=== PATIENT | male | born 1935 | race Caucasian/White ===

== ENCOUNTER 2023-12-25 17:57 | Emergency (ER) | payer MEDICARE, SELFPAY ==
--- NOTE | ~2023-12-25 | CT_ITS ---
CT brain wo con Ordering provider: Va Hallman PA-C History: 88 years Male with . head injury . Comparison: None. Technique: CT of the head without contrast. Radiation reduction technique utilized. DLP is 605.33 mGy-cm. FINDINGS: BRAIN PARENCHYMA AND CSF SPACES: Mild leukoaraiosis and diffuse cortical atrophy. Mild atheromatous d isease. Old lacunar infarct in the right basal ganglia. No midline shift, mass effect or hemorrhage. The brain parenchyma and CSF spaces are otherwise normal. VISUALIZED PARANASAL SINUSES: Well aerated. MASTOIDS: Well aerated. BONES: The bones appear intact. SOFT TISSUES: Visualized nasopharynx is normal. Superficial soft tissues are normal. IMPRESSION: No acute intracranial findings. Reviewed, dictated and finalized at location A.
--- NOTE | ~2023-12-25 | CT_ITS ---
CT cervical spine wo con Ordering provider: Va Hallman PA-C History: . head injury . Comparison: None. Technique: CT of the cervical spine was performed without contrast. Sagittal and coronal reformatted images were also obtained and reviewed. Automated exposure control and iterative reconstruction ming hnique were employed. The dose-length product was 365.87 mGy-cm. FINDINGS: VERTEBRAE: No subluxation or acute fracture. The occipital condyles are intact. Degenerative changes of the spine. DISC SPACES: Narrowing of the disc C4-C5 and C5-C6.Bilateral facet joint disease. Multilevel uncovert ebral joint osteoarthritic changes. Mild to moderate spinal canal stenosis with Narrowing of the fora yohan at the level of C5-C6. PARASPINOUS SOFT TISSUES: Normal. IMPRESSION: No acute osseous abnormality cervical spine. Reviewed, dictated and finalized at location A.
[2023-12-25 18:05] VITALS: BP 170/53; PULSE 76; RESP 16; TEMP 37.1; O2SAT 98
--- NOTE | 2023-12-25 19:53 | ED.HEATRA ---
HPI - Head Injury General Chief complaint: Head Injury Stated complaint: fall, head injury on aspirin Time Seen by Provider: 12/25/23 18:43 History of Present Illness HPI Narrative: 88-year-old male presents with his at bedside after a head injury a mechanical fall. 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 States he hit his head but did not lose consciousness. He did does not report any injury or pain. He does present with an abrasion to the back his head. Tdap unknown. No other complaints. He is not anticoagulated. Related Data Allergies Allergy/AdvReac Type Severity Reaction Status Date / Time No Known Allergies Allergy Verified 12/25/23 20:19 Review of Systems Review of Systems: All systems reviewed & are unremarkable except as noted in HPI and below Exam Narrative: GENERAL: Well-appearing, well-nourished, and in no acute distress. HEAD: Normocephalic. Small superficial abrasion to the posterior scalp without surrounding hematoma, ecchymosis, step-offs, crepitus or deformity EYES: PERRLA and EOMI. ENT: Nares clear, no rhinorrhea or epistaxis. Mucous membranes moist. NECK: minimal midline spinous tenderness without step-offs, crepitus or deformities BACK: no thoracolumbar spinous tenderness, crepitus, step-offs or deformities CHEST: Clear to auscultation. No respiratory distress. HEART: Regular rate and rhythm. No murmur heard. Normal peripheral pulses. EXTREMITIES: Normal range of motion. No edema. no tenderness to upper lower extremities SKIN: Warm, dry, no rash. NEURO: No focal deficits. Alert and oriented x3. cranial nerves 2-12 intact. Strength 5/5 in BUE and BLE. Course Vital Signs Vital signs: Vital Signs Temperature 98.8 F 12/25/23 18:05 Pulse Rate 76 12/25/23 18:05 Respiratory Rate 16 12/25/23 18:05 Blood Pressure 170/53 H 12/25/23 18:05 Pulse Oximetry 98 12/25/23 18:05 Temperature 98.8 F 12/25/23 18:05 Pulse Rate 67 12/25/23 20:19 Respiratory Rate 14 12/25/23 20:19 Blood Pressure 152/63 H 12/25/23 20:19 Pulse Oximetry 98 12/25/23 20:19 MDM - Head Injury MDM Narrative Medical decision making narrative: 88-year-old male presents to emergency department for head injury and mechanical fall that occurred prior to arrival. Triage vital significant for blood pressure 170/53, otherwise unremarkable. Patient is well-appearing and nontoxic on exam. He has a small superficial abrasion to posterior scalp, otherwise no evidence of trauma. CT head and neck are unremarkable. Tdap updated an abrasion cleaned with normal saline. The patient will be discharged home with PCP follow-up. Strict ED return precautions discussed. He and his are agreeable to plan verbalized understanding. Discharged in stable condition. Discharge Plan Discharge Clinical Impression: Closed head injury, Abrasion Patient Disposition: Home, Self-Care Condition: Stable Instructions: Antibiotic Form, Head Injury (ED), Abrasion (ED) Additional Instructions: you were evaluated in the emergency department for a head injury. The CT of your head and neck Show no broken bones or bleeds. We updated her tetanus shot today. Please follow-up closely with primary care provider. Return to the emergency department if he developed abnormal behavior, vision changes, focal numbness or weakness, fever or other concerning symptoms. Follow-up/Referrals: Elena,Matthias Dunn M.D. [Primary Care Provider] -
[2023-12-25 20:19] VITALS: BP 152/63; PULSE 67; RESP 14; O2SAT 98
[2023-12-25] MEDS: TETANUS,DIPHTHERIA,AC PERTUSSIS ADULT (0.5 ML) BOOSTRIX IM (20:20)
== END 2023-12-25 20:25 | disposition home or self-care (01) ==
PROVIDERS: Emergency Provider Physician Assistant; PCP Family Medicine
DX: S00.01XA Abrasion of scalp, initial encounter (principal); Z23 Encounter for immunization; W18.39XA Other fall on same level, initial encounter
CPT/HCPCS: 70450; 72125; 90471; 90715; 99284

== ENCOUNTER 2024-01-15 09:33 | Observation (INO) | payer MEDICARE, SELFPAY ==
[2024-01-15] VITALS (18 sets, daily range): BP systolic 108–147; BP diastolic 45–66; PULSE 52–63; RESP 13–21; TEMP 36.4–36.9; O2SAT 92–99; BMI 21.3
--- NOTE | ~2024-01-15 | XR_ITS ---
Clinical Indication: Chest pressure PA and lateral views of the chest: Comparison: None Findings: The lungs are clear, without evidence of focal consolidation or pleural effusion. Cardiome diastinal silhouette is within normal limits, with loop recorder. Bones and soft tissues are unremark able. Impression: Clear lungs. Reviewed, dictated and finalized at location . Impression: Clear lungs.
--- NOTE | ~2024-01-15 | CT_ITS ---
CT head without contrast Indication: Syncope COMPARISON: 12/25/2023 Technique: Serial scans were obtained through the brain without the administration of contrast. Dose reduction technique was used on this scan by utilizing automated exposure control and iterative recon struction technique. The dose-length product (DLP) was 605.33 mGy-cm. Findings: There is no evidence of intracranial hemorrhage, mass lesion, or acute infarct. The ventri cles and subarachnoid spaces are dilated, consistent with moderate atrophy. Low attenuation regions are seen within the periventricular white matter bilaterally, likely representing changes from chroni c microvascular ischemic disease. There is no evidence of edema, mass effect or midline shift. The visualized paranasal sinuses and mastoid air cells are clear. Impression: No intracranial hemorrhage, mass, or acute infarct. Atrophy and chronic white matter changes, as above. Reviewed, dictated and finalized at location . Impression: No intracranial hemorrhage, mass, or acute infarct. Atrophy and chronic white matter changes, as above.
--- NOTE | ~2024-01-15 | US_ITS ---
CAROTID ULTRASOUND Ordering provider: Madeleine Watson NP History: . Syncope . Comparison: None. Technique: Grayscale and color Doppler ultrasound examination of the carotid and vertebral artery sys tems bilaterally. Maximum peak systolic velocity (PSV) / end diastolic velocity (EDV) measurements we re obtained. FINDINGS: RIGHT: --COMMON CAROTID ARTERY: PSV is 129.3 cm/s. EDV is 15.1 cm/s. --EXTERNAL CAROTID ARTERY: PSV is 182.9 cm/s. --INTERNAL CAROTID ARTERY PROXIMAL: PSV is 70.7 cm/s. EDV is 8.1 cm/s. --INTERNAL CAROTID ARTERY MID: PSV is 96.5 cm/s. EDV is 9.3 cm/s. --INTERNAL CAROTID ARTERY DISTAL: PSV is 96.5 cm/s. EDV is 9.3 cm/s. --VERTEBRAL ARTERY: PSV is 65.8 cm/s. Antegrade flow with normal waveform. --SYSTOLIC ICA/CCA: 0.7 --ATHEROMATOUS DISEASE: Mild. LEFT: --COMMON CAROTID ARTERY: PSV is 1.0, 5.2 cm/s. EDV is 12.1 cm/s. --EXTERNAL CAROTID ARTERY: PSV is 185.5 cm/s. --INTERNAL CAROTID ARTERY PROXIMAL: PSV is 99.7 cm/s. EDV is 10.2 cm/s. --INTERNAL CAROTID ARTERY MID: PSV is 125.3 cm/s. EDV is 12.1 cm/s. --INTERNAL CAROTID ARTERY DISTAL: PSV is 60.6 cm/s. EDV is 11.6 cm/s. --VERTEBRAL ARTERY: PSV is 36.3 cm/s. Antegrade flow with normal waveform. --SYSTOLIC ICA/CCA: 1.2 --ATHEROMATOUS DISEASE: Mild. --OTHER: None. IMPRESSION: 1. 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 2. Antegrade flow demonstrated within both vertebral arteries. Reviewed, dictated and finalized at location A.
--- NOTE | 2024-01-15 09:37 | ECG_ITS ---
Test Date: 2024-01-15 09:43:23 Measurements Intervals [place] Rate: 55 P: 6 [place]: 248 QRS: 61 QRSD: 145 T: 207 QT: 476 QTc: 456 Interpretive Statements SINUS BRADYCARDIA WITH FIRST DEGREE AV BLOCK RIGHT BUNDLE BRANCH BLOCK [120+ ms QRS DURATION, UPRIGHT V1, 40+ ms S IN I/aVL/V4/V5/V6] MODERATE T-WAVE ABNORMALITY, CONSIDER LATERAL ISCHEMIA [-0.1+ mV T-WAVE IN I/aVL/V5/V6] MODERATE T-WAVE ABNORMALITY, CONSIDER INFERIOR ISCHEMIA [-0.1+ mV T-WAVE IN II/aVF] No previous ECG available for comparison Electronically Signed On 01-15-2024 17:13:01 CDT by Anders Ceballos M.D.
[2024-01-15 10:04] LABS: Basophils Percent Auto 0.7 % (0.2-1.2); Eosinophils Absolute Auto 0.1 K/mm3 (0-0.3); Eosinophils Percent Auto 2.3 % (0-4.4); Hematocrit 36.2 % (42.0-52.0); Hemoglobin 12.5 g/dL (14.0-18.0); Immature Granulocyte Absolute 0.01 K/mm3 (0.00-0.031); Immature Granulocyte Percent A 0.2 % (0-0.5); Lymphocytes Absolute Auto 2.27 K/mm3 (0.9-3.2); Lymphocytes Percent Auto 37.3 % (18.3-44.2); Mean Corpuscular HGB Conc 34.5 g/dl (32-36); Mean Corpuscular Hemoglobin 34.8 pg (26-34); Mean Corpuscular Volume 100.8 fl (80-100); Mean Platelet Volume 9.7 fl (7.4-10.4); Monocytes Absolute Auto 0.5 K/mm3 (0.1-0.6); Monocytes Percent Auto 8.6 % (2.6-8.5); Neutrophils Absolute Auto 3.1 K/mm3 (1.3-6.7); Neutrophils Percent Auto 50.9 % (45.5-73.1); Platelet Count Result 207 k/mm3 (150-375); Red Blood Count 3.59 M/mm3 (4.6-6.20); Red Cell Distribution Width 12.1 % (11.5-14.5); White Blood Count 6.1 K/mm3 (4.5-10.0)
[2024-01-15 10:16] LABS: Alanine Aminotransferase 28 U/L (6-50); Albumin Level 3.7 g/dL (3.5-5.1); Alkaline Phosphatase 65 U/L (38-126); Anion Gap 12 mmol/L (4-12); Aspartate Amino Transferase 24 U/L (17-59); Bilirubin,Total 0.7 mg/dL (0.2-1.3); Blood Urea Nitrogen 19 mg/dL (9-20); Calcium 8.7 mg/dL (8.4-10.2); Carbon Dioxide 24 mmol/L (22-30); Chloride 100 mmol/L (98-107); Estimated CRCL calculation 34 ml/min; Estimated Glomerular Filt Rate 57; Glucose 307 mg/dL (65-110); Potassium 4.2 mmol/L (3.4-5.0); Sodium 136 mmol/L (137-145)
--- NOTE | 2024-01-15 10:34 | ED.DIZZY ---
HPI - Dizziness General Chief Complaint: Dizziness Stated Complaint: weakness, possible syncope History of Present Illness HPI Narrative: 88-year-old male presenting to the emergency department for evaluation for 2 syncopal episodes today. Patient had just had a long hot shower and was walking from the bathroom to the bedroom when he lowered himself to the ground and had loss of consciousness. witnessed this and went to his system and states that the patient was conscious when he was lying on the ground and she tried to stand him up to get into the bed and patient had a 2nd syncopal episode. Patient laid back on the bed and once he laid back within 10-15 seconds he had regained consciousness. Patient does not recall the episode. At time of evaluation patient denies any lightheaded dizziness chest pain or shortness of breath. states patient does have history of memory issues and does not drink enough water normally and does take long hot showers. Related Data Home Medications Medication Instructions Recorded Confirmed aspirin 81 mg capsule 81 mg PO DAILY 01/15/24 01/15/24 atorvastatin 80 mg tablet 80 mg PO HS 01/15/24 01/15/24 carvedilol 6.25 mg tablet 6.25 mg PO Q12H 01/15/24 01/15/24 clopidogrel 75 mg tablet 75 mg PO DAILY 01/15/24 01/15/24 cyanocobalamin (vitamin B-12) 500 See Rx Instructions .Route .COMPLEX 01/15/24 01/15/24 mcg tablet finasteride 5 mg tablet 5 mg PO DAILY 01/15/24 01/15/24 furosemide 20 mg tablet 20 mg PO DAILY 01/15/24 01/15/24 metformin 500 mg tablet 500 mg PO Q12H 01/15/24 01/15/24 uoexleqk-bo-knmql 300 mcg-K 60 See Rx Instructions .Route .COMPLEX 01/15/24 01/15/24 mcg-lycop 600 mcg-lutein 300 mcg tablet (Centrum Silver Men) olmesartan 40 mg tablet 40 mg PO DAILY 01/15/24 01/15/24 omega 3-knp-pab-fish oil 1,200 mg 1,200 cap PO TID 01/15/24 01/15/24 (144 mg-216 mg) capsule (Fish Oil) saw palmetto 450 mg capsule 450 mg PO Q12H 01/15/24 01/15/24 tamsulosin 0.4 mg capsule 0.4 mg PO Q12H 01/15/24 01/15/24 Allergies Allergy/AdvReac Type Severity Reaction Status Date / Time No Known Allergies Allergy Verified 01/15/24 09:43 Review of Systems Review of Systems: All systems reviewed & are unremarkable except as noted in HPI and below PMFSH Social History Social History Smoking status: Never smoker Alcohol intake: never Substance use: never Do You Feel Safe in your Home?: Yes Lack of Transportation: No Lack of Food: Never True Current Housing: I Have Housing Concerned About Future Housing: No Difficulty Paying Gas/Electric Bills: No Difficulty Paying for Meds: No Currently Unemployed: No Education: Master's Degree or Higher Difficulty w/ Childcare or Family Care: No Spiritual care concerns: No Exam Narrative: APPEARANCE: Well appearing, no pain, no distress, well-nourished. HEAD: normocephalic, atraumatic. EYES: PERRLA/EOMI, conjunctivae clear. NOSE: Normal no drainage EARS:TMS clear with good light reflex. THROAT: Pharynx clear, no exudate. NECK: Supple. No adenopathy, no masses. RESPIRATORY: Airway patent, respirations nonlabored. Clear to auscultation bilaterally, no rales, rhonchi, wheezing. CARDIOVASCULAR: Regular rate and rhythm without murmurs rubs or gallops. ABDOMINAL: Soft, nontender, nondistended, normal bowel sounds MUSCULOSKELETAL: Moves all extremities. Strength/ROM intact, No edema, No calf tenderness. NEURO: Alert. Cranial nerves II through XII intact. Grossly intact SKIN: Warm, dry. Normal Color Course Course Emergency Course: Patient was admitted for further syncope workup. Vital Signs Vital signs: Vital Signs Temperature 98.4 F 01/15/24 09:34 Pulse Rate 56 L 01/15/24 09:34 Respiratory Rate 15 01/15/24 09:34 Blood Pressure 117/50 L 01/15/24 09:34 Pulse Oximetry 92 01/15/24 09:34 Oxygen Delivery Room Air 01/15/24 09:34 Temperature 97.6 F
[2024-01-15 10:55] LABS: Magnesium 1.7 mg/dL (1.6-2.3)
[2024-01-15 11:22] LABS: Influenza A QL RT-PCR Negative (Negative); Influenza B QL RT-PCR Negative (Negative); RSV RNA, RT-PCR Negative (Negative); SARS-CoV-2 RNA PCR Negative (Negative)
[2024-01-15 12:49] LABS: Add Urine Microscopic? YES; Appearance Urine Clear (Clear); Bacteria Urine None Seen /hpf; Bilirubin Urine Negative (Negative); Blood Urine Negative (Negative); Color Urine Yellow (Yellow); Glucose Urine UA 3+ mg/dL (Negative); Ketones Urine Trace mg/dL (Negative); Leukocyte Esterase Ur Negative LEU/UL (Negative); Need Manual Microscopic Need Manual; Nitrate Urine Negative (Negative); Non Pathogenic Casts 0-2; Protein Urine Trace mg/dL (Negative); Specific Grav Ur 1.035 (1.001-1.035); Squamous Epithelial Cell Urine None Seen /hpf (Few); Urobilinogen Urine 0.2 mg/dL (<2.0); WBC Urine 0-5 /hpf (0-3)
--- NOTE | 2024-01-15 13:50 | ADMGEN ---
This patient, Gary Myers, was admitted to [address] [place] [address] Room 306-02. Patient/family oriented to hospital policies and general routines including ID bracelet, bed and alarms, visiting hours, pain management, procedures, bathroom and other care routines, personal items, smoking policy, room service/diet, and visiting hours. Information on how to activate the Rapid Response Team has been discussed. Patient/Family are encouraged to report perceived risks to care and to ask questions if they do not understand what they are told or what they should do.
[2024-01-15 15:10] LABS: Free T4 Free Thyroxine Reflex 1.07 ng/dL (0.78-2.19)
[2024-01-15 16:26] LABS: Total Triiodothyronine (T3) 1.33 NG/ML (0.97-1.69)
--- NOTE | 2024-01-15 17:00 | PM.IMHP ---
H&P: HPI History of Present Illness Date/Time: 01/15/24 13:00 Chief Complaint: Syncope Narrative: Patient presented to the ER following a syncope episode at home. Patient with bedside, reports that he took a shower and assisted him drying up. Patient's briefly left the room but briefly thereafter heard a loud noise coming from patient's room. returned to check on patient and found him on the floor, patient denying hitting head or LOC prior to the fall episode, but doesn't know how he fell, states he just found himself on the floor. Patient reports some brief discomfort behind his left chest as he left the shower that quickly resolved. Patient also hasn't taken any of his medications, that include carvedilol for his CAD. Of note, patient had a fall episode about 3 weeks ago at the grocery store that he attributes to getting up quickly after picking up something from the floor. He hit the back of his head during that presentation, and was seen at this ER where he had a negative work-up, only a superficial abrasion at posterior scalp that was treated and patient discharge. Patient unaware if any previous history of bradycardia and follows up with a donor support technician in [place]. ER Work-up >>Labs; WBC 6.1, H/H 12.5/36.2, Plat 207, Na 136, TSH 6.67, FT4 10.7, T3 1.33, UA with 3+ glucose, Trace ketones, 11-20 RBC's, Covid PCR negative, FLU A/B PCR negative, RSV PCP negative. Imaging; CT head- No intracranial hemorrhage, mass or acute infarct. Patient denying any dizziness, headache, chest pain, SOB, numbness or tingling, abdominal distress. [facility] Social History Social History Smoking status: Never smoker Alcohol intake: never Substance use: never Do You Feel Safe in your Home?: Yes Lack of Transportation: No Lack of Food: Never True Current Housing: I Have Housing Concerned About Future Housing: No Difficulty Paying Gas/Electric Bills: No Difficulty Paying for Meds: No Currently Unemployed: No Education: Master's Degree or Higher Difficulty w/ Childcare or Family Care: No Spiritual care concerns: No Meds Home Medications and Allergies Home Medications Medication Instructions Recorded Confirmed Type aspirin 81 mg capsule 81 mg PO DAILY 01/15/24 01/15/24 History atorvastatin 80 mg tablet 80 mg PO HS 01/15/24 01/15/24 History carvedilol 6.25 mg tablet 6.25 mg PO Q12H 01/15/24 01/15/24 History clopidogrel 75 mg tablet 75 mg PO DAILY 01/15/24 01/15/24 History cyanocobalamin (vitamin B-12) 500 See Rx Instructions .Route .COMPLEX 01/15/24 01/15/24 History mcg tablet finasteride 5 mg tablet 5 mg PO DAILY 01/15/24 01/15/24 History furosemide 20 mg tablet 20 mg PO DAILY 01/15/24 01/15/24 History metformin 500 mg tablet 500 mg PO Q12H 01/15/24 01/15/24 History mmyqbqrx-de-urdma 300 mcg-K 60 See Rx Instructions .Route .COMPLEX 01/15/24 01/15/24 History mcg-lycop 600 mcg-lutein 300 mcg tablet (Centrum Silver Men) olmesartan 40 mg tablet 40 mg PO DAILY 01/15/24 01/15/24 History omega 0-tgu-kbm-fish oil 1,200 mg 1,200 cap PO TID 01/15/24 01/15/24 History (144 mg-216 mg) capsule (Fish Oil) saw palmetto 450 mg capsule 450 mg PO Q12H 01/15/24 01/15/24 History tamsulosin 0.4 mg capsule 0.4 mg PO Q12H 01/15/24 01/15/24 History Allergies Allergy/AdvReac Type Severity Reaction Status Date / Time No Known Allergies Allergy Verified 01/15/24 09:43 Vital Signs Vital Signs - 24 hr 01/15/24 09:34 01/15/24 10:44 01/15/24 10:44 Temperature 98.4 F Pulse Rate 56 L 59 L 60 Respiratory Rate 15 Blood Pressure 117/50 L 122/45 L 126/47 L Pulse Oximetry 92 Oxygen Delivery Room Air 01/15/24 10:44 01/15/24 11:47 01/15/24 09:38 Temperature Pulse Rate 63 59 L 55 L Respiratory Rate 20 Blood Pressure 116/48 L 117/50 L Pulse Oximetry 92 Oxygen Delivery 01/15/24 09:45 01/15/24 09:46 08/07/24 10:38 Tem
[2024-01-15] MEDS: OMEGA 3 POLYUNSAT FATTY ACIDS 1 GM CAP PO (18:10)
[2024-01-15] MEDS: metFORMIN HCL 500 MG TABLET PO (18:10)
[2024-01-15 18:25] LABS: Hemoglobin A1C 9.6 % (<5.7)
[2024-01-15] MEDS: CYANOCOBALAMIN 500 MCG TABLET PO (19:22)
[2024-01-15 20:18] LABS: Glucose Point of Care 281 mg/dl (65-105)
[2024-01-15] MEDS: INSULIN ASPART (*BKC) 100 UNITS/ML SUB-Q (20:44)
[2024-01-15] MEDS: ATORVASTATIN 40 MG TABLET 80 MG PO (20:44)
[2024-01-15] MEDS: TAMSULOSIN HCL 0.4 MG CAPSULE PO (20:44)
[2024-01-16] VITALS (13 sets, daily range): BP systolic 133–158; BP diastolic 55–84; PULSE 56–73; RESP 18–20; TEMP 36.1–37; O2SAT 94–97
--- NOTE | 2024-01-16 | ECHO_ITS ---
Patient Info Name: Gary Myers Age: 88 years : 1935 Gender: Male Ht: 69 in Wt: 160 lbs BSA: 1.88 m2 HR: 63 bpm BP: 108 / 66 mmHg Heart Rhythm: Sinus Rhythm Technical Quality: Good Exam Date: 01/16/2024 11:35 AM Exam Location: Echo Lab Patient Status: Inpatient Admit Date: 01/15/2024 Staff Ordering Physician: Madeleine Watson NP Typewriter Aligner: Lazara Abdi RDCS Attending Provider: Robert Morfin MD Referring Physician: Walter SHARP; Exam Type: CA echo doppler color flow Study Info Indications - syncope Complete two-dimensional, color flow and Doppler transthoracic echocardiogram is performed. Summary 1. Complete two-dimensional, color flow and Doppler transthoracic echocardiogram is performed. 2. Moderate concentric left ventricular hypertrophy with well-preserved systolic function and grade 1 diastolic noncompliance. 3. Sclerotic aortic valve which is nonstenotic. 4. Mild mitral annular calcium. Left Ventricle Left ventricular chamber dimension is normal. Left ventricular systolic function is normal, estimated at 65-70%. There is moderate concentric increased left ventricular wall thickness. The left ventricular diastolic function is grade I diastolic dysfunction. Right Ventricle Right ventricular chamber dimension is normal. Left Atria Left atrial chamber dimension is normal. Right Atria Right atrial chamber dimension is normal. Aortic Valve The aortic valve is trileaflet. There is mild aortic valve sclerosis. Pulmonic Valve The pulmonic valve is not well visualized. Mitral Valve The mitral valve has normal leaflets. The mitral valve annulus is mildly calcified. Tricuspid Valve The tricuspid valve leaflets are normal. Pericardium/Pleural The pericardium appears normal. Aorta The aortic root size at the sinus of Valsalva is normal. Left Ventricular Outflow Tract Name Value Normal LVOT 2D LVOT Diameter 2.1 cm LVOT Doppler LVOT Peak Gradient 3 mmHg LVOT Mean Gradient 1 mmHg LVOT VTI 21 cm LVOT VTI/AV VTI Ratio 0.9 LVOT Stroke Volume 77 ml LVOT CO 4.3 l/min LVOT CI 2.3 l/min/m2 Pulmonic Valve Name Value Normal PV Doppler PV Peak Gradient 2 mmHg Mitral Valve Name Value Normal MV Doppler MV Decel Evans 162 cm/s2 MV PHT 86 ms MV Area (PHT) 2.6 cm2 4.0-5.0 MV Diastolic Function
--- NOTE | 2024-01-16 06:00 | ECG_ITS ---
Test Date: 2024-01-16 07:37:15 Measurements Intervals [place] Rate: 56 P: 52 [place]: 233 QRS: 70 QRSD: 138 T: -81 QT: 431 QTc: 419 Interpretive Statements SINUS BRADYCARDIA WITH FIRST DEGREE AV BLOCK RIGHT BUNDLE BRANCH BLOCK [120+ ms QRS DURATION, UPRIGHT V1, 40+ ms S IN I/aVL/V4/V5/V6] MODERATE T-WAVE ABNORMALITY, CONSIDER ANTEROLATERAL ISCHEMIA [-0.1+ mV T WAVE IN V3-V6] ABNORMAL ECG Compared to ECG 01/15/2024 09:43:23 No significant changes Electronically Signed On 01-17-2024 13:24:27 CDT by Riley Iraheta M.D.
[2024-01-16 07:49] LABS: Glucose Point of Care 214 mg/dl (65-105)
[2024-01-16] MEDS: OLMESARTAN MEDOXOMIL 20 MG TABLET 40 MG PO (09:42)
[2024-01-16] MEDS: ASPIRIN 81 MG CHEWABLE TABLET PO (09:42)
[2024-01-16] MEDS: FINASTERIDE 5 MG TABLET PO (09:42)
[2024-01-16] MEDS: INSULIN ASPART (*BKC) 100 UNITS/ML SUB-Q ×2 (09:42→12:15)
[2024-01-16] MEDS: OMEGA 3 POLYUNSAT FATTY ACIDS 1 GM CAP PO ×3 (09:42→17:06)
[2024-01-16] MEDS: TAMSULOSIN HCL 0.4 MG CAPSULE PO ×2 (09:42→21:21)
[2024-01-16] MEDS: FUROSEMIDE 20 MG TABLET PO (09:42)
[2024-01-16] MEDS: CLOPIDOGREL BISULFATE 75 MG TABLET PO (09:42)
[2024-01-16] MEDS: metFORMIN HCL 500 MG TABLET PO ×2 (09:42→17:06)
[2024-01-16 11:42] LABS: Glucose Point of Care 338 mg/dl (65-105)
--- NOTE | 2024-01-16 13:00 | PM.IMPN ---
Progress Note: A&P Assessment and Plan (1) Syncope and collapse: Code(s): R55 - Syncope and collapse Status: Acute Assessment and Plan: - Possibly related to bradycardia - Maintains sinus osvaldo on telemetry. - Troponin pending. - No significant electrolytes abnormalities or signs of infection. - CT brain negative for acute. - CXR negative. - UA negative for infection. - ECHO pendign - Carotid duplex no significant occlusion - Hold Coreg for now. - Continue tele monitoring. (2) Bradycardia: Code(s): R00.1 - Bradycardia, unspecified Status: Acute Assessment and Plan: - Possibly meds related with patient taking Coreg. - Maintains sinus osvaldo with 1st degree AV block on telemetry. - Hold coreg for now. - Consider reducing coreg dose prior to discharge. (3) Diabetes type 2, uncontrolled: Status: Acute Assessment and Plan: - Blood glucose levels trending 300's. - Patient and spouse admit to not checking BGL levels. - A1c ordered. - Started on SSI. - Consider adjusting hypoglycemics dose prior to discharge. (4) CAD (coronary artery disease), [place] coronary artery: Code(s): I25.10 - Atherosclerotic heart disease of [place] coronary artery without angina pectoris Status: Acute Assessment and Plan: - Denies chest pain or SOB. - Continue aspirin and statin. - Hold Coreg with bradycardia. (5) Dyslipidemia: Code(s): E78.5 - Hyperlipidemia, unspecified Status: Acute Assessment and Plan: - Continue statin. (6) Generalized muscle weakness: Code(s): M62.81 - Muscle weakness (generalized) Status: Acute Assessment and Plan: - Likely related to debility. - Denies using walker or cane at home. - PT/OT eval and treatment. - Fall precautions. (7) Essential hypertension: Code(s): I10 - Essential (primary) hypertension Status: Acute Assessment and Plan: - Fairly well controlled. - Monitor for now. Plan Code Status: FULL-CODE. Diet: Heart Health, Diabetic. DVT PPx: SCD's. Subjective Date/time seen: 01/16/24 13:00 Interval history: Patient presented to the ER on account of passing out. noted he passed out after having a shower and no head trauma CT head, chest x-ray, carotid duplex unremarkable. Echo pending. EKG showed sinus bradycardia with 1st degree block and RBBB Exam Narrative: General: Well appearing, generalized muscle weakness. HEENT: Atraumatic, PERRL, normal sclera, no icteria. Neck: Supple. Respiratory: Crackles to shira bases. Cardiovascular: RRR, S1S2 Gastrointestinal: Abdomen soft, non-tender, positive bowel sounds. Skin: Warm and dry. No rash or lesions noted. Extremities: No cyanosis, clubbing or edema. Radial and pedal pulses 2+. Neurological: A&Ox4. Delayed responses. Cranial nerves II-XII grossly intact. No obvious focal deficits. Psych: Appropriate and co-operative. Judgement and insight intact. Objective Data Vital Signs Vital Signs: Vital Signs - 24 hr 01/15/24 14:00 01/15/24 16:00 01/15/24 20:56 Temperature 97.6 F 97.5 F L Pulse Rate 52 L 55 L 62 Respiratory Rate 18 17 Blood Pressure 139/45 L 108/66 Pulse Oximetry 96 94 Oxygen Delivery Fraction of Inspired Oxygen 01/15/24 20:00 01/15/24 20:00 01/16/24 00:00 Temperature Pulse Rate 61 57 L Respiratory Rate Blood Pressure Pulse Oximetry Oxygen Delivery Room Air Fraction of Inspired Oxygen 01/16/24 04:00 01/16/24 06:00 01/16/24 07:53 Temperature 97.0 F L 98.0 F Pulse Rate 63 58 L 56 L Respiratory Rate 19 18 Blood Pressure 155/84 H 153/61 H Pulse Oximetry 97 96 Oxygen Delivery Fraction of Inspired Oxygen 01/16/24 08:38 01/16/24 08:39 01/16/24 08:41 Temperature Pulse Rate 62 71 Respiratory Rate 18 20 Blood Pressure 147/60 H 137/55 L Pulse Oximetry 97 97 97 Oxygen Delivery Room Air Fraction of Inspired Oxygen 21 01/16/24 08:00
--- NOTE | 2024-01-16 16:16 | PM.CNCAR ---
Assessment and Plan Assessment and plan (1) Syncope: Code(s): R55 - Syncope and collapse Status: Acute Plan This is an 88-year-old man with underlying coronary artery disease who had a self-limited syncopal episode yesterday at home after he was taking a hot shower. I believe this is probably a vasovagal episode related to vasodilatation from the hot shower. I do not believe he had a an arrhythmia and has had no arrhythmias or symptoms since being hospitalized overnight. His echocardiogram does not show any LV systolic dysfunction. Given his history of a coronary disease with a number of vessels receiving revascularization in the past I told him that he should inform his established ornamental iron erector of this episode after discharge. At my opinion is he can safe to be discharged from [facility] at this time for follow-up with his established physicians. Riley Iraheta MD [facility] History of Present Illness History of Present Illness Consult date/time: 01/16/24 16:16 Reason For Visit: Syncope Narrative: This is a very pleasant 88-year-old man of seeing at the request of the hospitalist after he was admitted for evaluation of a syncopal episode. Patient is unknown to me and I came to this hospital in the private car after he had a syncopal episode in his home and fell last night. The patient is is in the room to provide most of the history. Apparently he was taking warm or rather hot shower and when he came out of the shower he was feeling unwell and fell to the floor he thinks he bruit he briefly lost consciousness when that happened. His came to his aid when she heard him hit the floor and helped him into bed she said when she sat him down in the bed and was getting ready to lay down his eyes rolled back and he lost consciousness again for just a few moments. They were very stressed by this of course and when he regained consciousness they called a family member who advised him to come to the emergency room for evaluation. They came in their private car were evaluated and admitted. In the emergency room he was asymptomatic he has been asymptomatic since being in the hospital last night his telemetry shows sinus rhythm with first-degree AV block and a nonspecific T-wave abnormality. According to the patient and his he has a history of coronary artery disease with stents put in at least 2 or 3 of his coronary arteries over the course of many years he has not had a coronary intervention in about 8-10 years according to the best of their recollection. They follow with a ornamental iron erector, Dr. Wang in [place]. He has not had any recent chest pain pressure or heaviness at his and advanced age he still is a fairly active gentleman and does not have any exertional symptoms. An echocardiogram was done which demonstrates left ventricular hypertrophy with good contractility and no significant valvular abnormalities. His laboratory dated did not show any elevation in his biomarkers. Review of Systems Constitutional: Constitutional: Reports no additional constitutional complaints Eyes: Eyes: Reports no additional eye complaints ENT: Reports system reviewed and no additional complaints, except as documented Cardiovascular: Cardiovascular: Reports as per HPI Respiratory: Respiratory: Reports no additional respiratory complaints Gastrointestinal: Gastrointestinal: Reports no additional gastrointestinal complaints Musculoskeletal: Musculoskeletal: Reports no additional musculoskeletal complaints and Reports back pain Integumentary/Breasts: Skin/Breast: Reports system reviewed and no additional complaints, except as docu Neurologic: Reports system reviewed and no additional complaints, except as documented Endocrine: Endocrine: Reports no additional endocrine complaints Hematologic/Lymphatic: Hematologic/Lymphatic: Reports no additional hematologic/lymphatic complaints Allergic/Immunologic: Allergic/Immunologic: Reports no
[2024-01-16 16:33] LABS: Glucose Point of Care 168 mg/dl (65-105)
[2024-01-16 20:55] LABS: Glucose Point of Care 190 mg/dl (65-105)
[2024-01-16] MEDS: ATORVASTATIN 40 MG TABLET 80 MG PO (21:21)
[2024-01-17] VITALS: PULSE 59
[2024-01-17 04:00] VITALS: PULSE 58
[2024-01-17 06:00] VITALS: BP 136/59; PULSE 58; RESP 18; TEMP 36.6; O2SAT 96
[2024-01-17 06:05] LABS: Basophils Percent Auto 0.7 % (0.2-1.2); Eosinophils Absolute Auto 0.1 K/mm3 (0-0.3); Eosinophils Percent Auto 2.1 % (0-4.4); Immature Granulocyte Absolute 0.01 K/mm3 (0.00-0.031); Immature Granulocyte Percent A 0.2 % (0-0.5); Lymphocytes Absolute Auto 2.29 K/mm3 (0.9-3.2); Lymphocytes Percent Auto 40.1 % (18.3-44.2); Mean Corpuscular HGB Conc 34.3 g/dl (32-36); Mean Corpuscular Hemoglobin 34.4 pg (26-34); Mean Corpuscular Volume 100.3 fl (80-100); Mean Platelet Volume 9.4 fl (7.4-10.4); Monocytes Absolute Auto 0.6 K/mm3 (0.1-0.6); Monocytes Percent Auto 9.8 % (2.6-8.5); Neutrophils Absolute Auto 2.7 K/mm3 (1.3-6.7); Neutrophils Percent Auto 47.1 % (45.5-73.1); Platelet Count Result 183 k/mm3 (150-375); Red Blood Count 3.49 M/mm3 (4.6-6.20); Red Cell Distribution Width 12.2 % (11.5-14.5); White Blood Count 5.7 K/mm3 (4.5-10.0)
[2024-01-17 06:17] LABS: Alanine Aminotransferase 32 U/L (6-50); Albumin Level 3.4 g/dL (3.5-5.1); Alkaline Phosphatase 66 U/L (38-126); Anion Gap 7 mmol/L (4-12); Aspartate Amino Transferase 34 U/L (17-59); Bilirubin,Total 0.5 mg/dL (0.2-1.3); Blood Urea Nitrogen 20 mg/dL (9-20); Calcium 8.4 mg/dL (8.4-10.2); Carbon Dioxide 27 mmol/L (22-30); Chloride 102 mmol/L (98-107); Estimated CRCL calculation 34 ml/min; Estimated Glomerular Filt Rate 57; Glucose 193 mg/dL (65-110); Potassium 3.7 mmol/L (3.4-5.0); Sodium 136 mmol/L (137-145)
[2024-01-17 06:48] LABS: Troponin I < 0.012 ng/mL (0.000-0.034)
[2024-01-17 07:33] LABS: Glucose Point of Care 202 mg/dl (65-105)
[2024-01-17 08:00] VITALS: PULSE 85
[2024-01-17] MEDS: TAMSULOSIN HCL 0.4 MG CAPSULE PO (08:20)
[2024-01-17] MEDS: OLMESARTAN MEDOXOMIL 20 MG TABLET 40 MG PO (08:20)
[2024-01-17] MEDS: FINASTERIDE 5 MG TABLET PO (08:20)
[2024-01-17] MEDS: CLOPIDOGREL BISULFATE 75 MG TABLET PO (08:21)
[2024-01-17] MEDS: ASPIRIN 81 MG CHEWABLE TABLET PO (08:21)
[2024-01-17] MEDS: OMEGA 3 POLYUNSAT FATTY ACIDS 1 GM CAP PO ×2 (08:21→12:16)
[2024-01-17] MEDS: CYANOCOBALAMIN 500 MCG TABLET PO (08:21)
[2024-01-17] MEDS: FUROSEMIDE 20 MG TABLET PO (08:21)
[2024-01-17] MEDS: metFORMIN HCL 500 MG TABLET PO (08:21)
[2024-01-17] MEDS: INSULIN ASPART (*BKC) 100 UNITS/ML SUB-Q ×2 (09:43→12:16)
[2024-01-17 11:32] LABS: Glucose Point of Care 216 mg/dl (65-105)
--- NOTE | 2024-01-17 12:46 | PM.DS ---
DS: Admitting Diagnosis Discharge Date 01/17/24 Admitting Diagnosis Vasovagal syncope DS: Summary Hospital Course Hospital Course: Patient presented to the ER on account of passing out. noted he passed out after having a shower and no head trauma CT head, chest x-ray, carotid duplex unremarkable. Echo pending. EKG showed sinus bradycardia with 1st degree block and RBBB ECHO showed grade I diastolic dysfunction with normal EF Patient was off his Coreg this admission and remained bradycadic thorugh out his stay cardiology evaluated and noted syncopal episode is likely Vasovagal syncope and no further workup required and patient will follow up with his primary cardiology. Will hold coreg until follow up with his primary cardiology. see topical management below Assessment and Plan (1) Syncope and collapse: Code(s): R55 - Syncope and collapse Status: Acute Assessment and Plan: - Possibly related to bradycardia - Maintains sinus osvaldo on telemetry. - Troponin negative - No significant electrolytes abnormalities or signs of infection. - CT brain negative for acute. - CXR negative. - UA negative for infection. - ECHO Grade I diastolic dysfunction, normal EF - Carotid duplex no significant occlusion - Coreg held, pending follow up with primary cardiology Cardiology eval noted likely patient had vasovagal syncope. F/u with [facility] cardiology (2) Bradycardia: Code(s): R00.1 - Bradycardia, unspecified Status: Acute Assessment and Plan: - Possibly meds related with patient taking Coreg. - Maintains sinus osvaldo with 1st degree AV block on telemetry. Hold Coreg until follow up [facility] cardiology (3) Diabetes type 2, uncontrolled: Status: Acute Assessment and Plan: continue home regimen (4) CAD (coronary artery disease), [place] coronary artery: Code(s): I25.10 - Atherosclerotic heart disease of [place] coronary artery without angina pectoris Status: Acute Assessment and Plan: - Denies chest pain or SOB. - Continue aspirin and statin. - Hold Coreg with bradycardia. F/u with cardiology (5) Dyslipidemia: Code(s): E78.5 - Hyperlipidemia, unspecified Status: Acute Assessment and Plan: - Continue statin. (6) Generalized muscle weakness: Code(s): M62.81 - Muscle weakness (generalized) Status: Acute Assessment and Plan: - Likely related to debility. - Denies using walker or cane at home. - PT/OT eval and treatment. (7) Essential hypertension: Code(s): I10 - Essential (primary) hypertension Status: Acute Assessment and Plan: controlled Continue follow up with PCP in 3-5 days and cardiology as instructed Subjective Date/time seen: 01/16/24 13:00 Interval history: Patient presented to the ER on account of passing out. noted he passed out after having a shower and no head trauma CT head, chest x-ray, carotid duplex unremarkable. Echo pending. EKG showed sinus bradycardia with 1st degree block and RBBB Time Spent with Patient Time attestation: Total time spent providing and/or coordinating discharge services: DS: Data Data Completed and Pending Labs on day of discharge: Labs from last 24 hours 01/17/24 01/17/24 01/17/24 11:27 07:31 05:53 WBC 5.7 RBC 3.49 L Hgb 12.0 L Hct 35.0 L MCV 100.3 H MCH 34.4 H MCHC 34.3 RDW 12.2 Plt Count 183 MPV 9.4 Immature Gran % (Auto) 0.2 Neut % (Auto) 47.1 Lymph % (Auto) 40.1 Hale % (Auto) 9.8 H Eos % (Auto) 2.1 Baso % (Auto) 0.7 Lymph # (Auto) 2.29 Hale # (Auto) 0.6 Eos # (Auto) 0.1 Baso # (Auto) 0.0 Abs Immat Gran (auto) 0.01 Absolute Neuts (auto) 2.7 Absolute Nucleated RBC 0.000 Nucleated RBC % 0.0 Sodium 136 L Potassium 3.7 Chloride 102 Carbon Dioxide 27 Anion Gap 7 BUN 20 Creatinine 1.20 Estim Creat C
== END 2024-01-17 13:08 | disposition home or self-care (01) ==
LOC: ANHED 11:29 → ANH3MEDSUR 12:28
PROVIDERS: Nurse Practitioner Adult Health; Admitting Provider General Practice; Emergency Provider Emergency Medicine; PCP Family Medicine; Visit Provider Internal Medicine
DX: R55 Syncope and collapse (principal); I44.0 Atrioventricular block, first degree; R00.1 Bradycardia, unspecified; I65.23 Occlusion and stenosis of bilateral carotid arteries; M62.81 Muscle weakness (generalized); I25.10 Atherosclerotic heart disease of native coronary artery without angina pectoris; E11.9 Type 2 diabetes mellitus without complications; E78.5 Hyperlipidemia, unspecified; I10 Essential (primary) hypertension; Z79.82 Long term (current) use of aspirin; Z79.02 Long term (current) use of antithrombotics/antiplatelets; Z79.84 Long term (current) use of oral hypoglycemic drugs; Z20.822 Contact with and (suspected) exposure to COVID-19
CPT/HCPCS: 36415; 70450; 71046; 80053; 81001; 82948; 83036; 83735; 84439; 84443; 84480; 84484; 85025; 87637; 93005; 93306; 93880; 97161; 97165; 99285; A9270; G0378; J1815

== ENCOUNTER 2024-07-04 17:10 | Emergency (ER) | payer MEDICARE, SELFPAY ==
[2024-07-04] VITALS (7 sets, daily range): BP systolic 140–159; BP diastolic 53–75; PULSE 65–86; RESP 12–23; TEMP 36.9–37.7; O2SAT 96–98
--- NOTE | ~2024-07-04 | CT_ITS ---
History: Confusion PROCEDURE: CT head without contrast. COMPARISON: 01/15/2024 TECHNIQUE: Axial imaging of the head performed from the skull base to the vertex without IV contrast. Sagittal a nd coronal reformations obtained. DLP: 681 mGy-cm FINDINGS: The ventricles are enlarged. The dilatation of the ventricles is proportional to the degree of sulcal prominence, not uncommon in the senescent brain. Decreased attenuation is identified within the periventricular white matter, likely secondary to micr ovascular ischemic disease, in a patient of this age. There is no mass, mass effect or midline shift. There is no abnormal extra-axial fluid collection or intracranial hemorrhage. Visualized paranasal sinuses are clear. The mastoid air cells are well aerated. No acute displaced fractures within the overlying cranium. Impression: No acute intracranial hemorrhage or suspicious mass effect. Reviewed, dictated and finalized at location A. OSAL REP Impression: No acute intracranial hemorrhage or suspicious mass effect.
--- NOTE | ~2024-07-04 | CT_ITS ---
CLINICAL INDICATION: Flank pain. Urinary retention COMPARISON: None. TECHNIQUE: Multiple contiguous axial images of the abdomen/pelvis and lumbar spine were performed wit hout the administration of intravenous contrast The dose-length product (DLP) was 1083.60 mGy-cm. Automated exposure control and iterative reconstruction technique were employed. FINDINGS/OBSERVATIONS: Visualized lower thorax: Left basilar pleural thickening adjacent compressive atelectasis. The remainder of the lung bases are clear The heart is enlarged, without pericardial effusion. Small hiatal hernia is present. Liver: The liver demonstrates homogeneous attenuation and is not enlarged measuring 15 cm in longitudinal di mension. Gallbladder and biliary system: The gallbladder is surgically absent Pancreas: Limited evaluation of the pancreas secondary to the lack of intravenous contrast. Spleen: The spleen demonstrates homogeneous attenuation and is not enlarged measuring 4 cm in longitudinal di mension. Kidneys: Fluid attenuation focus within the upper pole of the right kidney for which a cyst is suspected. Multiple nonobstructing stones within the left kidney. The remainder of the bilateral kidneys are somewhat atrophic, but otherwise unremarkable. Adrenal glands: Unremarkable. Gastrointestinal tract: Colonic diverticulosis without surrounding inflammatory change. Fecal stasis within the colon. Appendix: The air-filled appendix is of normal caliber (axial series, images 120 through 131) Vasculature: Densely calcified atherosclerotic disease. Lymph nodes: Limited evaluation without intravenous contrast. Pelvic structures: The bladder is decompressed. And otherwise unremarkable. The prostate gland is not enlarged. Body wall and musculoskeletal: Small fat-containing umbilical hernia. Moderate degenerative disease within the lumbar spine, with straightening of the normal curvature, os teophyte formation, disc space narrowing and vacuum phenomena. A large Schmorl's node is identified within the L3 vertebral body. No acute compression fracture. IMPRESSION: No acute intra-abdominal findings. Innumerable nonacute findings, as detailed above. Reviewed, dictated and finalized at location A. SHOP TECHNICIAN
--- OUTSIDE RECORDS SUMMARY | 2024-07-04 17:12 | XMS_ITS | Clinical Summary ---
Author Organization [facility] Address [address] [place] [address] Care Team Providers Care Pyrometer Temperature Regulator Name Role Phone Matthias Parker MD Primary Care Provider [phone] Allergies Active Allergy Reactions Criticality Noted Date Comments Amoxicillin-Pot Clavulanate Rash Medium 06/14/19 23 Ceftriaxone Rash Medium 05/21/2022 Medications cyanocobalamin (Vitamin B-12) 2,500 mcg tablet, sublingualIndicati ons:Prevention of Vitamin B12 Deficiency Take 1 tablet Mondays and Wednesdays and Fridays only 40 tablet 3 1 Active omega-3 fatty acids/fish oil (FISH OIL OMEGA 3-6-9 ORAL) Take by mouth Acti ve saw palmetto 450 mg capsule Take 450 mg by mouth daily Active metFORMIN (GLUCOPHAGE) 500 mg tabletIndications: Type 2 diabetes mellitus without complication, without long-term current use of insulin (CMS/HCC) (HCC) TAKE 1 TABLET(500 MG) BY MOUTH THREE TIMES DAILY BEFORE MEALS 270 tablet 1 4 Active carvediloL (COREG) 6.25 mg tabletIndications: 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 (CMS/HCC) ([facility]) TAKE 1 TABLET(6.25 MG) BY MOUTH TWICE DAILY 180 tablet 3 4 Active olmesartan (BENICAR) 40 mg tabletIndications: 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 (CMS/HCC) (HCC) TAKE 1 TABLET(40 MG) BY MOUTH DAILY 90 tablet 3 4 Active tamsulosin (FLOMAX) 0.4 mg extended release capsule Take 1 capsule (0.4 mg total) by mouth 2 (two) times a day 180 capsule 4 Active atorvastatin (LIPITOR) 80 mg tabletIndications: Mixed hyperlipidemia Take 1 tablet (80 mg total) by mouth daily 100 tablet 3 4 Active clopidogreL (PLAVIX) 75 mg tabletIndications: History of coronary artery stent placement Take 1 tablet (75 mg total) by mouth daily 100 tablet 3 4 Active aspirin 81 mg enteric coated tablet Take 1 tablet (81 mg total) by mouth daily 90 tablet 3 4 Active saw palmetto 450 mg capsule Take 450 mg by mouth daily 90 capsule 1 4 Active omega 7-vek-hpu-fish oil 1,200 (144-216) mg capsule Take 1,200 mg by mouth daily 90 capsule 1 4 Active cyanocobalamin (Vitamin B-12) 2,500 mcg tablet, sublingualIndicati ons:Prevention of Vitamin B12 Deficiency Take 1 tablet (2,500 mcg total) by mouth daily 90 tablet 1 4 Active multivitamin tabletIndications: Vitamin Deficiency Prevention Take 1 tablet by mouth daily 90 tablet 1 4 Active pen needle, diabetic 31 gauge x 10/23 needleIndications: Type 2 diabetes mellitus with hyperglycemia, without long-term current use of insulin ([facility]) Use to inject once nightly 100 each 11 4 Active insulin glargine 100 unit/mL (3 mL) pen for injectionIndicatio ns:Type 2 diabetes mellitus with hyperglycemia, without long-term current use of insulin ([facility]) Inject 10 Units under the skin nightly 9 mL 1 4 Active finasteride (PROSCAR) 5 mg tabletIndications: Benign prostatic hyperplasia with urinary frequency TAKE 1 TABLET(5 MG) BY MOUTH DAILY 90 tablet 1 4 Active Active Problems Problem Noted Date Diagnosed Date Syncope and collapse 04/01/2024 Overview (04/08/2024): Syncope with 6.2 second pause on cardiac monitoring in February 2024. S/P Biotronik Amvia Edge dual-chamber pacemaker on 01 April 2024 (RL). Assessment & Plan (04/09/2024 2:10 PM CDT): No severe incisional pain or fever or wound drainage. We discussed usual pacemaker precautions. He knows to follow up with Dr. Mak on 17 August 2024. Sick sinus syndrome (CMS/HCC) 04/01/2024 Assessment & Plan (05/19/2024 2:14 PM SOCIAL SCIENCES INSTRUCTOR): S/p pacemaker placement. NO further syncopal episodes. Pain and swelling of knee, left 03/10/2024 Assessment & Plan (03/10/2024 3:33 PM CDT): No injury, mild discomfort in left knee for the past few weeks worsening in the last few days. On exam today his left knee is swollen, mildly erythematous and warm to the touch. Need to rule out septic arthritis. Denies any systemic signs of infection such as chills, nausea, appetite changes or fevers. No fever today. Will check labs, x-ray and refer to ortho. Reviewed ER precautions with patient and . Bradycardia 03/09/2024 Assessment & Plan (03/10/2024 3:30 PM CDT): Wearing ekg monitor tech. Following closely with Cardiology. Scheduled for pacemaker placement 03/19/24. 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 Controlled type 2 diabetes m ellitus with diabetic polyneuropathy, without long-term current use of insulin 01/27/2024 Hypertension associated with diabetes 09/16/2023 Assessment & Plan (05/19/2024 2:13 PM SOCIAL SCIENCES INSTRUCTOR): Stable on olmesartan. As above. Subacute cough 03/01/2023 Assessment & Plan (03/01/2023 9:35 AM CDT): No abnormal findings on exam. Patient denies feeling unwell. No fevers, shortness of breath dizziness, fatigue or changes in appetite. Lungs clear on exam, vital signs within normal limits. Recommended continued symptomatic treatment, can try a nonsedating adkw-nmp-omifpmh antihistamine to help with postnasal drainage contributing to cough. Encouraged patient and his to call office in 1 week to give an update of symptoms. Will call sooner with any new or worsening symptoms. Will plan to order CXR. Rash as adverse effect of penicillin 06/14/2022 Assessment & Plan (06/14/2022 2:18 PM SOCIAL SCIENCES INSTRUCTOR): Discontinue augmentin. No facial swelling, sob or voice changes. Rash localized to patients face, non itching. Instructed to take benadryl for drug reaction rash. Reviewed signs of serious allergic reaction requiring immediate ER evaluation. Dental infection 06/14/2022 Assessment & Plan (06/14/2022 2:17 PM SOCIAL SCIENCES INSTRUCTOR): Discontinue augmentin. Prescribed doxycyline for dental infection. BMI 26.0-26.9,adult 06/14/2022 Assessment & Plan (03/10/2024 3:30 PM CDT): Stable; no unintentional changes in weight. Patient reports normal diet/appetite. Age-related cognitive decline 05/23/2021 Hip abductor tendonitis, left 10/19/2020 Syncope and collapse 01/04/2020 Chronic diastolic heart failure 07/16/2019 Thyroid nodule 03/18/2019 Pacemaker reprogramming/check 12/20/2017 Assessment & Plan (12/20/2017 10:37 AM CDT): Pt was advised to continue current therapy and medications for chronic conditions as previously as advised. Continue with healthy dietary management as well. Pt offered no additional complaints today in office. Preoperative medical clearance: Pt is medically stable and aware there are risk associated with surgery and anesthesia. He states the surgeon has reviewed these risk in detail with patient, and wishes to proceed with surgery. They are medically cleared for surgery at this time. Pt was instructed to contact the office with absolutely any changes prior to and post surgery. We will see them back here as scheduled, or certainly sooner as needed. Coronary artery disease invo lving [place] coronary artery of [place] heart without angina pectoris 04/02/2017 Assessment & Plan (05/19/2024 2:13 PM SOCIAL SCIENCES INSTRUCTOR): Seconasdry prevneiton. WIll montior response. Assessment & Plan (01/26/2018 5:07 AM CDT): Coronary artery disease status post stents. Denies any angina symptoms. Follows up with Cardiology Dr. Mak Will get echocardiogram. Trend troponins Telemetry monitoring Assessment & Plan (12/20/2017 10:47 AM CDT): H/o 5 stents last one in 2004. Sees annually. Continue statin, ASA, plavix, and antihypertensives and f/u with them as scheduled Calculus of gallbladder with out cholecystitis without obstruction 04/02/2017 Benign prostatic hyperplasia with urinary freque ncy 04/02/2017 Assessment & Plan (05/19/2024 2:14 PM SOCIAL SCIENCES INSTRUCTOR): Dual agnet therapy with finasteride and tamsulosin. MOntior for orthostasis. Assessment & Plan (05/26/2019 10:58 AM SOCIAL SCIENCES INSTRUCTOR): Stable with acute on chronic complaint of urinary frequency likely D/T infection. Cnt. Flomax once daily as prior prescribed. Last PSA testing under [facility] at 1.3. Hypertensive heart disease w ith chronic diastolic congestive heart failure (CMS/HCC) 10/24/2013 Overview (09/12/2016): HYPERTENSION NOS Assessment & Plan (05/19/2024 2:12 PM SOCIAL SCIENCES INSTRUCTOR): Reivewed BP control and will montior ersponse. NO chest pains/pheadaches. No sig orthostasis. Reivewed hydration. Assessment & Plan (03/10/2024 3:30 PM CDT): Stable; blood pressure is well controlled. No acute changes in weight. Assessment & Plan (05/13/2020 8:30 AM SOCIAL SCIENCES INSTRUCTOR): Recommend DASH diet, heart-healthy lifestyle, exercise. Discussed the risks of hypertension. Assessment & Plan (01/26/2018 5:10 AM CDT): Blood pressures are stable. Will continue home cardiac pertinent medications Assessment & Plan (12/20/2017 10:52 AM CDT): Stable. Pt was advised of continuing heart healthy DASH diet, increase exercise as tolerated, and continuing to monitor for any lower leg edema, headaches, changes in vision, or facial flushing. Continue ASA, plavix and anti-hypertensives as prescribed. Type 2 diabetes mellitus 10/24/2013 Overview (09/14/2016): DMII WO CMP NT ST UNCNTR Assessment & Plan (05/19/2024 2:13 PM SOCIAL SCIENCES INSTRUCTOR): Reviwed glycemic control and iwll montior response. Encourage healthy food chocices and regular insulin usage. Assessment & Plan (03/01/2023 9:33 AM CDT): Stable, continue current regimen. Labs ordered today for patient to repeat a few days prior to scheduled office visit. Continues metformin 500 mg t.i.d. Assessment & Plan (05/26/2019 10:57 AM SOCIAL SCIENCES INSTRUCTOR): Stable with last hemoglobin A1c at 7.2%. Urinary frequency addressed today in clinic which could likely be D/T acute infection. Given patient's glucosuria of +3, will follow-up here in 1 week to further evaluate DM control with negative culture. In the interim, Cnt. Current dosing of metformin, consistent carb diet and monitoring for any signs of hypo or hyperglycemia. Assessment & Plan (01/26/2018 5:04 AM CDT): Hold oral hypoglycemics. Low-dose sliding scale insulin Acute checks Assessment & Plan (12/20/2017 10:35 AM CDT): Last A1c when checked in September was 6.6 indicating stability of diabetes control considering goal is to be under a today 2 years old. Continue current oral hypoglycemic, consistent carb diet, increase exercise as tolerated and follow up in 4 months as scheduled with labs prior to recheck diabetes control Hyperlipidemia 10/24/2013 Overview (09/13/2016): HYPERLIPIDEMIA NEC/NOS Assessment & Plan (01/26/2018 5:05 AM CDT): Continue with statin and aspirin and Plavix Assessment & Plan (12/20/2017 10:35 AM CDT): Last LDL was 60 and total cholesterol remained stable at 115, continue current use of Lipitor, baby aspirin along with Plavix as prescribed for history of stent, heart healthy diet increase exercise as tolerated and follow up with Dr. Sheikh in 4 months as scheduled History of coronary artery stent placement Resolved Problems Problem Noted Date Diagnosed Date Resolved Date Cystitis 05/28/2019 07/16/2019 Encephalopathy due to infection 05/28/2019 07/16/2019 Hyponatremia 05/28/2019 07/16/2019 Head contusion 05/28/2019 07/16/2019 Urinary symptom or sign 05/26/201911/2019 Assessment & Plan (05/26/2019 10:57 AM SOCIAL SCIENCES INSTRUCTOR): Acute UTI vs prostatitis likely cause. Initiating Bactrim DS b.i.d. x7 days, increasing fluid intake and recommending urinary frequency. Further direction pending results of urine culture and micro given presence of blood in glucosuria S/Es of medication discussed. RTC 1 week Dizziness 01/26/2018 04/10/2018 Assessment & Plan (01/26/2018 5:09 AM CDT): Patient currently completely asymptomatic. Dizziness resolved. Under clinically Fall precautions Telemetry monitoring Will get repeat echocardiogram Shortness of breath 01/26/2018 07/16/19 20 Assessment & Plan (01/26/2018 5:10 AM CDT): D-dimers were slightly positive. CT angiogram was negative for any acute pulmonary emboli. Shortness of breath currently resolved. Atherosclerosis of coronary artery 10/24/2013 04/02/2017 Overview (09/14/2016): COR ATH UNSP VSL NTV/GFT Disorder of prostate 10/24/2013 017 Overview (09/14/2016): PROSTATIC DISORDER NOS Multiple-type hyperlipidemia 07/09/2013 04/02/2017 Overview (09/13/2016): MIXED HYPERLIPIDEMIA Disorder of gallbladder 05/28/201303/11 Overview (09/12/2016): Gallbladder disease Diaphoresis 04/10/2018 Delirium due to known physiological condition 07/16/2019 Hypervolemia 07/16/2019 Encounters Date Type Department Care Team Description 07/04/2024 2:30 PM SOCIAL SCIENCES INSTRUCTOR Office Visit [facility] [address] [phone] Sanjuanita Grarido PA Altered mental status, unspecified altered mental status type (Primary Dx); Hypertensive urgency 07/01/2024 3:45 PM SOCIAL SCIENCES INSTRUCTOR Ancillary Procedure [facility] Boat Carpenter [address] [place] [phone] Syncope and collapse; Coronary artery disease involving [place] coronary artery of [place] heart without angina pectoris; Pacemaker 05/19/2024 2:00 PM SOCIAL SCIENCES INSTRUCTOR Office Visit [facility] at [address] [phone] Matthias Parker MD 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 (CMS/HCC) (HCC) (Primary Dx); Type 2 diabetes mellitus with diabetic polyneuropathy, without long-term current use of insulin (HCC); Type 2 diabetes mellitus with hyperlipidemia (HCC); Sick sinus syndrome (CMS/HCC) (HCC); Coronary artery disease involving [place] coronary artery of [place] heart without angina pectoris; Hypertension associated with diabetes (HCC); Benign prostatic hyperplasia with urinary frequency 05/15/2024 Telephone [facility] [address] [phone] Matthias Parker MD Medication Request 04/08/2024 2:45 PM CDT Office Visit [facility] at [address] [place] [phone] El Ogden MD Syncope and collapse (Primary Dx) 04/07/2024 Telephone [facility] [address] [phone] Matthias Parker MD Medical Question/Miscellaneou s 04/03/2024 Telephone [facility] [address] [phone] Matthias Parker MD Medical Records Request from Last 3 Months Immunizations Name Administration Dates Next Due COVID-19 mRNA ([employer]) 0.3 m L (30 mcg) vaccine (12 years and up) 04/10/2024 Influenza, Quadrivalent, Hig h Dose, Preservative Free, Intrr 03/30/2021 Influenza, Trivalent, High D ose, Split, Preservative Free, Intramuscular 03/02/2019,03/13/2018,03/13/2017,02/27,03/09/2015,03/29/2014 Influenza, Trivalent, IM (MDV) 03/18/2013,2010 Influenza, Unspecified 03/10/2024,2023(Deferred: Patient Refused),03/14/2023,03/01/2023(Deferre d: Patient Refused),03/10/2022,02/09/2021(Deferre d: Patient Refused),03/16/2020,03/02/2019 MVious Xotics SARS-CoV-2 Monovalent Vaccination (12+ Yrs) PURPLE 03/26/2023,03/13/2021,07/07/2020,06/15 Pneumococcal Conjugate PCV 13 09/01/2014 Pneumococcal Polysaccharide PPV23 05/23/2021, Tdap 12/25/2023 ZOSTER LIVE 05/15/2008,05/15/2008 ZOSTER Recombinant 10/03/2018,01/24/2018, 018 Surgical History Surgery Date Site/Laterality Comments LAPAROSCOPIC CHOLECYSTECTOMY 06/10/2013 - 06/09/2014 laparoscopic cholecystectomy OTHER SURGICAL HISTORY 2 stents 10/10/01 OTHER SURGICAL HISTORY 1 stent 12/31/01 OTHER SURGICAL HISTORY 2 stents 02/2005 CHOLECYSTECTOMY CARDIAC STENT PLACEMENT VASECTOMY Medical History Medical History Date Comments Cardiovascular disease Coronary artery disease Hypertension Hypertension Type 2 diabetes mellitus (HCC) D iabetes type 2 Hx Other Medical hyperlipidemia Hx Other Medical Dehydration Urinary incontinence Hypercholesteremia CHF (congestive heart failure) (CMS/HCC) (HCC) Family History Medical History Relation Name Comments Diabetes type II Father Diabetes -T ype II; Other Father Unknown; Other Mother Unknown; Heart disease Other 1 Family history of heart problems; Hypertension Other 2 Family history of Hypertension; Diabetes Other 3 Family history of diabetes; Relation Name Status Comments Father Mother Other 1 Other 2 Other 3 Social History Tobacco Use Types Packs/Day Years Used Date Smoking Tobacco: Never Smokeless Tobacco: Never Tobacco Cessation:Counseling Given: Not Answered Alcohol Use Standard Drinks/Week Comments Yes 0 (1 standard drink = 0.6 oz pur e alcohol) AUDIT-C Answer Date Recorded Q1: How often do you have a drink containing alcohol? Never 04/01/2024 Q2: How many drinks containi ng alcohol do you have on a typical day when you are drinking? Patient does not drink Q3: How often do you have si x or more drinks on one occasion? Never 04/01/2024 PHQ-2 Answer Date Recorded PHQ-2 Total Score (If total score is 3 or more points, staff should administer the PHQ-9) 0 05/19/2024 Personal Safety Answer Date Recorded Have you ever been in or are you currently in a harmful physical or emotional relationship or is someone making you feel afraid or unsafe? Denies 04/01/2024 Sex and Gender Information Value Date Recorded Sex Assigned at Not on file Legal Sex Male 12:02 PM SOCIAL SCIENCES INSTRUCTOR Gender Identity Male 10/15/2020 8:47 PM CDT Sexual Orientation Straight 10/15/2020 8: 47 PM CDT Obstetrics History Last Filed Vital Signs Vital Sign Reading Time Taken Comments Blood Pressure 195/71 07/04/2024 2:40 PM SOCIAL SCIENCES INSTRUCTOR Pulse 78 07/04/2024 2:40 PM SOCIAL SCIENCES INSTRUCTOR Temperature 36.8 ??C (98.3 ??F) 07/04/2024 2:40 PM CS T Respiratory Rate 18 07/04/2024 2:40 PM SOCIAL SCIENCES INSTRUCTOR Oxygen Saturation 93% 07/04/2024 2:40 PM SOCIAL SCIENCES INSTRUCTOR Inhaled Oxygen Concentration - - Weight 79 kg (174 lb 1.6 oz) 07/04/2024 2:40 PM SOCIAL SCIENCES INSTRUCTOR Height 172.7 cm (5' 7.99 ) 07/04/2024 2:40 PM CS T Body Mass Index 26.48 07/04/2024 2:40 PM SOCIAL SCIENCES INSTRUCTOR Plan of Treatment Health Maintenance Due Date Last Done Comments Hepatitis B Screening 1953 Well Visit 65+ 05/23/2022 05/23/2021, 02/2020, 03/18/2019, Additional history exists Foot Exam 05/07/2023 05/07/2022, 02/2021, 05/26/2019, Additional history exists Dilated Eye Exam 01/24/2024 01/23/2023, 05/2022, 12/08/2020, Additional history exists Prostate Cancer Screening-PSA 04/18/2024, 11/17/2021, 09/27/2020, Additional history exists Hemoglobin A1C 09/14/2024 03/16/2024, 02/2023, 09/21/2022, Additional history exists Albumin Creatinine Ratio, Urine 03/16/2025 03/16/2024, 09/21/2022, 11/17/2021 Lipid Panel 03/16/2025 03/16/2024, 0 02/2023, 09/21/2022, Additional history exists eGFR 04/02/2025 04/02/2024, 02/2024, 03/16/2024, Additional history exists Depression Screening 05/19/2025 05/19/2024, 03/10/2024, 01/27/2024, Additional history exists Fall Risk Assessment 05/19/2025 05/19/2024, 04/02/2024, 03/10/2024, Additional history exists DTaP/Tdap/Td Vaccine (2 - Td or Tdap) 12/24/2033 12/25/2023 Colon Cancer Screening-CT Colonography Discontinued 05/25/2010, 05/25/2010 Colon Cancer Screening-Colonoscopy Discontinued 05/25/2010, 05/25/2010 Colon Cancer Screening-DNA Stool Discontinued 05/25/20, 05/25/2010 Colon Cancer Screening-FIT Discontinued 05/25/2010, Colon Cancer Screening-Sigmoidoscopy Discontinued 05/25/2010, 05/25/2010 Zoster Vaccine Completed 10/03/2018, 01/08, 10/22/2017, Additional history exists Pneumococcal vaccine 65+ Completed 021, 09/01/2014, 08/01/2010 Influenza Vaccine Completed 03/10/2024, , 03/10/2022, Additional history exists Covid-19 Vaccine Completed 04/10/2024, , 03/22/2022, Additional history exists Medical Devices Implanted Type Area Landing Worker Device Identifier Shelf Expiration Date Model / Serial / Lot [employer]ronik [employer] Endocardial Pacing Lead Promri Solia T [id number] - [id number] - [id number] Implanted:Qty: 1 on 04/01/2024 by El Ogden MD at [facility] Lead [employer] 10/07/2024 [id number] / [id number] / [employer] Pacemaker Implantable Amvia Edge Dual Chamb Rate-Responsive [id number] - [id number] - [id number] Implanted:Qty: 1 on 04/01/2024 by El Ogden MD at [facility] Lead [employer] 07/10/2025 [id number] / [id number] / [employer] Tyrx Absorbable Antibacterial Envelope-Large 3.3x2.9in [id number] - [id number] Implanted:Qty: 1 on 04/01/2024 by El Ogden MD at [facility] [employer] 01/01/2025 [id number] / / [id number] Biotronik [employer] Endocardial Pacing Lead Promri Solia Jt [id number] - [id number] - [id number] Implanted:Qty: 1 on 04/01/2024 by El Ogden MD at [facility] [employer] 11/07/2024 [id number] / [id number] / Procedures Procedure Name Priority Date/Time Associated Diagnosis Comments DEVICE CHECK - REMOTE Routine 06/30/2024 10:30 AM SOCIAL SCIENCES INSTRUCTOR Syncope and collapse Coronary artery disease involving [place] coronary artery of [place] heart without angina pectoris Pacemaker EGFR Routine 04/02/2024 5:16 AM CDT HEMOGLOBIN A1C Routine 03/16/2024 9:58 AM CDT Controlled type 2 diabetes mellitus with diabetic polyneuropathy, without long-term current use of insulin (HCC) LIPID PANEL Routine 03/16/2024 9:58 AM CDT Controlled type 2 diabetes mellitus with diabetic polyneuropathy, without long-term current use of insulin (HCC) ALBUMIN CREATININE RATIO, URINE Routine 03/16/2024 9:58 AM CDT Controlled type 2 diabetes mellitus with diabetic polyneuropathy, without long-term current use of insulin (HCC) PSA SCREEN Routine 04/18/2023 8:28 AM SOCIAL SCIENCES INSTRUCTOR Encounter for prostate cancer screening HM DIABETES EYE EXAM Routine 01/23/2023 COLONOSCOPY Routine 05/25/2010 from Last 3 Months or Most Recently Relevant to Health Maintenance Results * DEVICE CHECK - REMOTE (06/30/2024 10:30 AM SOCIAL SCIENCES INSTRUCTOR) Anatomical Region Laterality Modality Other Narrative 07/02/2024 3:32 PM SOCIAL SCIENCES INSTRUCTOR Images from the original result were not included. 07/01/2024 [employer] quarterly remote check The complete report is attached and is also available in Visit Navigator under Urogynecology Physician Periodic IEGM Detection Jul 01, 2024: Dual Chamber PPM implanted March 2024 Battery Status: OK/100% Ap: ??61% RVp: ??1% Next Appointment: 08/17/2024 (marked for reschedule) No recorded episodes this monitoring period Reviewed By Marybeth Argueta PALLETIZER ATTESTATION I have reviewed the device interrogation report associated with this encounter in detail. I agree with the documentation recorded/scanned into the electronic medical record. Recommendations: Continue current device follow-up. Christophe Mak MD us Christophe Mak MD [facility] PROCEDURES Final Result * eGFR (04/02/2024 5:16 AM CDT) eGFR 68 >=60 mL/min/1. 73 m2 Comment: Interpretive Data Reference Interval Normal ?>/= 90 mL/min/1.73m2 Mildly decreased* ? 60 - 89 mL/min/1.73m2 Mildly to moderately decreased ?45 - 59 mL/min/1.73m2 Moderately to severely decreased ??30 - 44 mL/min/1.73m2 Severely decreased ?15 - 29 mL/min/1.73m2 Kidney Failure ?< 15 ??mL/min/1.73m2 *Relative to young adult level Estimated glomerular filtration rate is determined by the 2020 CKD-EPI equation recommended by the National Kidney Foundation (A Unifying Approach to GFR Estimation: Recommendations of the NKF-ASK Task Force on Reassessing the Inclusion of Race in Diagnosing Kidney Disease, JASN 2020). The CKD-EPI equation should not be used for patients with unstable renal function and has not been validated in children and those over 70. Current interpretive data was last reviewed 2021. Blood 04/02/2024 5:16 AM CDT 04/02/2024 6:22 AM CDT us Atul Mcguire MD LAB BLOOD ORDERABLES Final Resu lt [place] (TYRONE) [facility] Department [place] [address] * (ABNORMAL) Albumin Creatinine Ratio, Urine (03/16/2024 9:58 AM CDT) Albumin Ur 75.1 mg/L Comment: Interpretive Data No reference range established. Current interpretive data was last revised 2018. Testing performed by: [facility], [address] [place] [address]., [id number] Creatinine Ur 72.3 mg/dL [facility] ([place]) Comment: Interpretive Data No reference range established. Current interpretive data was last revised 2018. Testing performed by: [address] [address] Albumin Creatinine Ratio, Ur 104(H) 1 - 29 mg/g [facility] ([place]) Comment:Testing performed by : [address] [address] Urine 03/16/2024 9:58 AM CDT 03/16/2024 2:06 PM CDT Matthias Parker MD LAB URINE ORDERABLES Luisana l Result Performing Organization Address [facility] Co de Phone Number [facility] ([place]) [address] [facility] [place] [address] * (ABNORMAL) Hemoglobin A1c (03/16/2024 9:58 AM CDT) Hgb A1C 9.7(H) 4.0 - 5.6 % Estimated Average Glucose 232 mg/dL [facility] ([place]) Comment: The ADA recommends reporting an estimated Average Glucose (eAG) with all Hemoglobin A1c results using the equation derived from a study of 507 normal and diabetic adults. ??Minority populations were underrepresented and children were not included. ?? (Diabetes Care 31:3128-6641, 2008). ??The eAG is not equivalent to a fasting glucose. Blood 03/16/2024 9:58 AM CDT 03/16/2024 10:19 AM CDT us Matthias Parker MD LAB BLOOD ORDERABLES Luisana gale Result [facility] ([place]) 1 [facility] Department [place] [address] * (ABNORMAL) Lipid panel (03/16/2024 9:58 AM CDT) Cholesterol 105 30 - 199 mg/dL Comment: Interpretive Data Ages < or = 19 years ??Acceptable: ? <170 mg/dL ??Borderline high: ??170-199 mg/dL ??High: ? >or= 200 mg/dL Ages > or = 20 years ??Desirable: ?<200 mg/dL ??Borderline high: ??200-239 mg/dL ??High: ? >or= 240 mg/dL Literature References: 1. Expert Panel on Integrated Guidelines for Cardiovascular Health and Risk Reduction in Children and Adolescents. Pediatrics 2011;128:S213 2. NCEP Expert Panel. Circulation 2004;110:227 Current Interpretive Data was last revised on 2018. Triglycerides 153(H) <=149 mg/dL [facility] ([place]) Comment: Interpretive Data Ages < or = 9 years ??Acceptable: ? <75 mg/dL ??Borderline high: ??75-99 mg/dL ??High: ? >or= 100 mg/dL Ages 10 to 20 years ??Acceptable: ? <90 mg/dL ??Borderline high: ??90-129 mg/dL ??High: ? >or= 130 mg/dL Ages > or = 20 years ??Desirable: ?<150 mg/dL ??Borderline high: ??150-199 mg/dL ??High: ? 200-499 mg/dL ?Very high: ?? >or= 499 mg/dL Literature References: 1. Expert Panel on Integrated Guidelines for Cardiovascular Health and Risk Reduction in Children and Adolescents. Pediatrics 2011;128:S213 2. NCEP Expert Panel. Circulation 2004;110:227 Current Interpretive Data was last revised on 2018. HDL 38(L) >=40 mg/dL [facility] ([place]) Comment: Interpretive Data Ages < or = 19 years ??Acceptable: ? >45 mg/dL ??Borderline low: ?? 40-45 mg/dL ??Low: ? <40 mg/dL Ages > or = 20 years ??Desirable: ?>or= 60 mg/dL ??Low: ? <40 mg/dL Literature References: 1. Expert Panel on Integrated Guidelines for Cardiovascular Health and Risk Reduction in Children and Adolescents. Pediatrics 2011;128:S213 2. NCEP Expert Panel. Circulation 2004;110:227 Current Interpretive Data was last revised on 2018. LDL, calculated 41 <=129 mg/dL [facility] ([place]) Comment: Interpretive Data Ages < or = 19 years ??Acceptable: ? <110 mg/dL ??Borderline high: ??110-129 mg/dL ??High: ?>or= 130 mg/dL Ages > or = 20 years ??Optimal: ? <100 mg/dL ??Near optimal: ?100-129 mg/dL ??Borderline high: ?? 130-159 mg/dL ??High: ?>160 mg/dL Calculated using the Caleb LDL-C estimating equation. This equation was implemented on 2024. Prior to this date LDL-C was estimated using the Friedewald equation. Literature References: 1. Expert Panel on Integrated Guidelines for Cardiovascular Health and Risk Reduction in Children and Adolescents. Pediatrics 2011;128:S213 2. NCEP Expert Panel. Circulation 2004;110:227 3. Caleb Mills et al. FALGUNI Cardiol. 2020 October 08;5(5):540-548. doi: 10.1001/jamacardio.2020.0013 Current Interpretive Data was last revised on 2024. Non-HDL Cholesterol 67 mg/dL [facility] ([place]) Comment: Interpretive Data Ages < or = 19 years ??Acceptable: ?<120 mg/dL ??Borderline high: ??120-144 mg/dL ??High: ?>145 mg/dL Ages > or = 20 years ??When triglycerides are >200 mg/dL, Non-HDL cholesterol is a secondary target of ? therapy with treatment goals that are 30 mg/dL greater than the LDL cholesterol target. ? Literature References: 1. Expert Panel on Integrated Guidelines for Cardiovascular Health and Risk Reduction in Children and Adolescents. Pediatrics 2011;128:S213 2. NCEP Expert Panel. Circulation 2004;110:227 Current Interpretive Data was last revised on 2018. Chol/HDL ratio 3 [facility] ([place]) Blood 03/16/2024 9:58 AM CDT 03/16/2024 10:19 AM CDT us Matthias Parker MD LAB BLOOD ORDERABLES Luisana beasley Result [facility] ([place]) 1 [facility] Department [place] [address] * PSA screen (04/18/2023 8:28 AM SOCIAL SCIENCES INSTRUCTOR) PSA-Total 0.75 <=6.20 ng/mL [facility] Comment: Interpretive Data ?AGE ? SEX ?REFERENCE INTERVAL 0 minutes-150 years ?Female ?None 0 minutes-49 years ? Male ?None ? 50-59 years ? Male ?0-3.90 ? 60-69 years ? Male ?0-5.40 ? 70-79 years ? Male ?0-6.20 ? 80-150 years ?Male ?0-6.20 The Norma PSA Total assay procedure was used. Results from different manufacturers or methods may not be comparable. Serial testing should be performed using the same method. Current interpretive data last revised 21. Blood 04/18/2023 8:28 AM SOCIAL SCIENCES INSTRUCTOR 04/18/2023 3:00 PM SOCIAL SCIENCES INSTRUCTOR Lauren Lundberg INTERNIST MEDICAL DOCTOR MD LAB BLOOD ORDERABLES Final Result Performing Organization Address City/State/ZIP [place] Phone Number [facility] [phone] [place] [address] * DIABETES EYE EXAM (01/23/2023) SCRIBED DIABETIC DILATED EYE EXAM Normal Historical Provider MD HEALTH MAINTENANCE Final Result * Colonoscopy (05/25/2010) Anatomical Region Laterality Modality Other Impressions 05/25/2010 Polyp Historical Provider MD ENDOSCOPY PROCEDURES Luisana l Result from Last 3 Months or Most Recently Relevant to Health Maintenance Insurance [employer]ET[employer] MEDICARE [facility] MEDICARE [facility] MEDICARE Advance Directives For more information, please contact: [phone] Documents on File Type Date Recorded Patient Servomechanism Designer Expl anation ADVANCE DIRECTIVE 05/29/2022 11:15 AM Shikha Neri * Full Code (Latest Code Status on File) Date Activated Date Inactivated Comments 05/31/2019 10:56 AM 06/01/2019 7:19 PM * Full Code Date Activated Date Inactivated Comments 05/27/2019 10:08 PM 05/30/2019 6:39 PM * Full Code Date Activated Date Inactivated Comments 01/25/2018 10:19 PM 01/26/2018 11:20 AM * Full Code Date Activated Date Inactivated Comments 01/25/2018 2:08 PM 01/25/2018 10:19 PM Healthcare Agents on File Name Relationship Healthcare Agent Relationshi p Communication Shikha Neri Daughter Health Care Agent [email or web address] Care Teams Pyrometer Temperature Regulator Relationship Specialty Start Date End Date Matthias Parker MD [address] [place] [address] PCP - General Family Medicine 11/14/21
--- OUTSIDE RECORDS SUMMARY | 2024-07-04 17:12 | XMS_ITS | Encounter Summary ---
Author Organization [facility] Healthcare Address [address] [place] [address] Care Team Providers Care Kst Operator Name Role Phone Matthias Parker MD Primary Care Provider [phone] Reason for Visit * Reason Comments Urinary Symptom X 3 days, having tro uble urinating, and back pain on the right side Encounter Details Date Type Department Care Team (Late st Contact Info) Description 07/04/2024 2:30 PM DETECTIVE PRECINCT Office Visit [facility] at [address] [address] Sanjuanita Garrido PA [address] [place] [address] [address] [place] [address] Altered mental status, unspecified altered mental status type (Primary Dx); Hypertensive urgency Social History Tobacco Use Types Packs/Day Years Used Date Smoking Tobacco: Never Smokeless Tobacco: Never Alcohol Use Standard Drinks/Week Comments Yes 0 [...] on file Legal Sex Male 12:02 PM DETECTIVE PRECINCT Gender Identity Male 10/15/2020 8:47 PM CDT Sexual Orientation Straight 10/15/2020 8: 47 PM CDT documented as of this encounter Last Filed Vital Signs Vital Sign Reading Time Taken Comments Blood Pressure 195/71 07/04/2024 2:40 PM DETECTIVE PRECINCT Pulse 78 07/04/2024 2:40 PM DETECTIVE PRECINCT Temperature 36.8 ??C (98.3 ??F) 07/04/2024 2:40 PM CS T Respiratory Rate 18 07/04/2024 2:40 PM DETECTIVE PRECINCT Oxygen Saturation 93% 07/04/2024 2:40 PM DETECTIVE PRECINCT Inhaled Oxygen Concentration - - Weight 79 kg (174 lb 1.6 oz) 07/04/2024 2:40 PM DETECTIVE PRECINCT Height 172.7 cm (5' 7.99 ) 07/04/2024 2:40 PM CS T Body Mass Index 26.48 07/04/2024 2:40 PM DETECTIVE PRECINCT documented in this encounter Plan of Treatment Not on file documented as of this encounter Visit Diagnoses Diagnosis Altered mental status, unspecified altered mental status type- Primary Hypertensive urgency documented in this encounter Care Teams Kst Operator Relationship Specialty Start Date [place] [address] PCP - General Family Medicine 11/14/21 documented as of this encounter
--- OUTSIDE RECORDS SUMMARY | 2024-07-04 17:12 | XMS_ITS | Encounter Summary ---
Author Organization [facility] Address [address] [place] [address] Phone Care Team Providers Care Administrative Support Technician Name Role Phone David Sheikh MD Primary Care Provider [phone] Matthias Parker MD Primary Care Provider [phone] [place] Steve [facility] Unavailable [phone] Encounter Details Date Type Department Care Team (Late st Contact Info) Description 09/27/2017 Orders Only [facility] ProviderNeetu MD [address] [place] [id number] Social History Tobacco Use Types Packs/Day Years Used Date Smoking Tobacco: Never Alcohol Use Standard Drinks/Week Comments Yes 0 (1 standard drink = 0.6 oz pur e alcohol) Sex and Gender Information Value Date Recorded Sex Assigned at Not on file Legal Sex Male 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 us Historical Provider LAB BLOOD ORDERABLES Luisana l Result documented in this encounter Visit Diagnoses Not on filedocumented in this encounter Additional Health Concerns Infection Onset Date Last Indicated Resolved Time COVID: Suspected 08/22/2022 08/22/2022 08/22/2022 3:00 PM CDT COVID19 08/22/2022 08/22/2022 09/01/2022 3:05 AM CDT COVID: Recovered Comment:Added based on recent COVID infection. 09/01/2022 09/18/2022 11/30/2022 3:06 AM C DT COVID: Suspected 02/15/2023 02/15/2023 02/15/2023 3:50 PM CDT COVID: Suspected 09/09/2023 09/09/2023 09/09/2023 4:09 PM CDT documented as of this encounter Care Teams Administrative Support Technician Relationship Specialty Start Date End Date David Sheikh MD PCP - General 09/07/16 11/13/21 Matthias Parker MD [address] [place] [address] PCP - General Family Medicine 11/14/21 [place] Steve, [address] [place] [address] Pharmacist Pharmacy 06/25/23 07/17/23 documented as of this encounter
--- OUTSIDE RECORDS SUMMARY | 2024-07-04 17:12 | XMS_ITS | Referral Summary ---
Author Organization [facility] Address [address] [place] [address] Care Team Providers Care Long Term Care Phlebotomist Name Role Phone Matthias Parker MD Primary Care Provider [phone] Encounters Date Type Department Care Team Description 07/04/2024 2:30 PM VIDEO MACHINES MECHANIC Office Visit [facility] at [address] [address] Sanjuanita Garrido PA Altered mental status, unspecified altered mental status type (Primary Dx); Hypertensive urgency 07/01/2024 3:45 PM VIDEO MACHINES MECHANIC Ancillary Procedure [place] [employer] [id number] [address] Syncope and collapse; 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; Pacemaker 05/19/2024 2:00 PM VIDEO MACHINES MECHANIC Office Visit [facility] at [address] [address] Matthias Parker MD 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 (CMS/HCC) (HCC) (Primary Dx); Type 2 diabetes mellitus with diabetic polyneuropathy, without long-term current use of insulin (HCC); Type 2 diabetes mellitus with hyperlipidemia (HCC); Sick sinus syndrome (CMS/HCC) ([facility]); 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; Hypertension associated with diabetes ([facility]); Benign prostatic hyperplasia with urinary frequency 05/15/2024 [facility]phone [facility] [address] [address] Matthias Parker MD Medication Request 04/08/2024 2:45 PM CDT Office Visit [place] [facility] at [address] [place] [phone] El Ogden MD Syncope and collapse (Primary Dx) 04/07/2024 [facility]phone [facility] [address] [address] Matthias Parker MD Medical Question/Miscellaneou s 04/03/2024 [facility]phone [facility] [address] [address] Matthias Parker MD Medical Records Request from Last 3 Months Allergies Active Allergy Reactions Criticality Noted Date [...] without long-term current use of insulin (CMS/HCC) ([facility]) TAKE 1 TABLET(500 MG) BY MOUTH THREE TIMES DAILY BEFORE MEALS 270 tablet 1 4 Active carvediloL (COREG) 6.25 mg tabletIndications: 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 (CMS/HCC) (HCC) TAKE 1 TABLET(6.25 MG) BY MOUTH TWICE [...] daily 90 capsule 1 4 Active omega 4-apx-ooa-fish oil 1,200 (144-216) mg capsule Take 1,200 [...] hyperglycemia, without long-term current use of insulin ([facility]) Use to inject once nightly 100 each 11 4 Active insulin glargine 100 unit/mL (3 mL) pen for injectionIndicatio ns:Type 2 diabetes mellitus with hyperglycemia, without long-term current use of insulin ([facility]) Inject 10 Units under the skin nightly 9 mL 1 4 Active finasteride (PROSCAR) 5 mg tabletIndications: Benign prostatic hyperplasia with urinary frequency TAKE 1 TABLET(5 MG) BY MOUTH DAILY 90 tablet 1 12/16/202 4 Active Active Problems Problem Noted Date [...] 04/01/2024 Assessment & Plan (05/19/2024 2:14 PM VIDEO MACHINES MECHANIC): S/p pacemaker placement. NO further syncopal episodes. [...] & Plan (03/10/2024 3:30 PM CDT): Wearing quality assurance monitor body. Following closely with Cardiology. Scheduled for pacemaker placement 03/19/24. 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 Controlled type 2 diabetes m ellitus with diabetic polyneuropathy, without long-term current use of insulin 01/27/2024 Hypertension associated with diabetes 09/16/2023 Assessment & Plan (05/19/2024 2:13 PM VIDEO MACHINES MECHANIC): Stable on olmesartan. As above. Subacute cough 03/01/2023 Assessment & Plan (03/01/2023 9:35 AM CDT): No abnormal findings on exam. Patient denies feeling unwell. No fevers, shortness of breath dizziness, fatigue or changes in appetite. Lungs clear on exam, vital signs within normal limits. Recommended continued symptomatic treatment, can try a nonsedating mwey-btx-fxyrraz antihistamine to help with postnasal drainage contributing to cough. Encouraged patient and his to call office in 1 week to give an update of symptoms. Will call sooner with any new or worsening symptoms. Will plan to order CXR. Rash as adverse effect of penicillin 06/14/2022 Assessment & Plan (06/14/2022 2:18 PM VIDEO MACHINES MECHANIC): Discontinue augmentin. No facial swelling, sob or voice changes. Rash localized to patients face, non itching. Instructed to take benadryl for drug reaction rash. Reviewed signs of serious allergic reaction requiring immediate ER evaluation. Dental infection 06/14/2022 Assessment & Plan (06/14/2022 2:17 PM VIDEO MACHINES MECHANIC): Discontinue augmentin. Prescribed doxycyline for dental infection. [...] as needed. Coronary artery disease invo lving mesa grande coronary artery of mesa grande heart without angina pectoris 04/02/2017 Assessment & Plan (05/19/2024 2:13 PM VIDEO MACHINES MECHANIC): Seconasdry prevneiton. WIll montior response. Assessment & [...] 04/02/2017 Assessment & Plan (05/19/2024 2:14 PM VIDEO MACHINES MECHANIC): Dual agnet therapy with finasteride and tamsulosin. MOntior for orthostasis. Assessment & Plan (05/26/2019 10:58 AM VIDEO MACHINES MECHANIC): Stable with acute on chronic complaint of urinary frequency likely D/T infection. Cnt. Flomax once daily as prior prescribed. Last PSA testing under [facility] at 1.3. Hypertensive heart disease w ith chronic diastolic congestive heart failure ([facility]) 10/24/2013 Overview (09/12/2016): HYPERTENSION NOS Assessment & Plan (05/19/2024 2:12 PM VIDEO MACHINES MECHANIC): Reivewed BP control and will montior ersponse. NO chest pains/pheadaches. No sig orthostasis. Reivewed hydration. Assessment & Plan (03/10/2024 3:30 PM CDT): Stable; blood pressure is well controlled. No acute changes in weight. Assessment & Plan (05/13/2020 8:30 AM VIDEO MACHINES MECHANIC): Recommend DASH diet, heart-healthy lifestyle, exercise. Discussed [...] UNCNTR Assessment & Plan (05/19/2024 2:13 PM VIDEO MACHINES MECHANIC): Reviwed glycemic control and iwll montior response. Encourage healthy food chocices and regular insulin usage. Assessment & Plan (03/01/2023 9:33 AM CDT): Stable, continue current regimen. Labs ordered today for patient to repeat a few days prior to scheduled office visit. Continues metformin 500 mg t.i.d. Assessment & Plan (05/26/2019 10:57 AM VIDEO MACHINES MECHANIC): Stable with last hemoglobin A1c at 7.2%. [...] contusion 05/28/2019 07/16/2019 Urinary symptom or sign 05/26/2019 020 11/2019 Assessment & Plan (05/26/2019 10:57 AM VIDEO MACHINES MECHANIC): Acute UTI vs prostatitis likely cause. Initiating [...] get repeat echocardiogram Shortness of breath 01/26/2018 02/06/20 20 Assessment & Plan (01/26/2018 5:10 AM [...] to known physiological condition 07/16/2019 Hypervolemia 07/16/2019 Immunizations Name Administration Dates Next Due COVID-19 mRNA ([employer]) 0.3 m L (30 mcg) vaccine (12 years and up) 04/10/2024 Influenza, Quadrivalent, Hig h Dose, Preservative Free, Intrr 03/30/2021 Influenza, Trivalent, High D ose, Split, Preservative Free, Intramuscular 03/02/2019,03/13/2018,03/13/2017,02/27,03/09/2015,03/29/2014 Influenza, Trivalent, IM (MDV) 03/18/2013,2010 Influenza, Unspecified 03/10/2024,2023(Deferred: Patient Refused),03/14/2023,03/01/2023(Deferre d: Patient Refused),03/10/2022,02/09/2021(Deferre d: Patient Refused),03/16/2020,03/02/2019 Gigantt SARS-CoV-2 Monovalent Vaccination (12+ Yrs) PURPLE 03/26/2023,03/13/2021,07/07/2020,06/15 Pneumococcal Conjugate PCV 13 09/01/2014 Pneumococcal Polysaccharide PPV23 05/23/2021, Tdap 12/25/2023 ZOSTER LIVE 05/15/2008,05/15/2008 ZOSTER Recombinant 10/03/2018,01/24/2018, 018 Social History Tobacco Use Types Packs/Day Years [...] on file Legal Sex Male 12:02 PM VIDEO MACHINES MECHANIC Gender Identity Male 10/15/2020 8:47 PM CDT Sexual Orientation Straight 10/15/2020 8: 47 PM CDT Last Filed Vital Signs Vital Sign Reading Time Taken Comments Blood Pressure 195/71 07/04/2024 2:40 PM VIDEO MACHINES MECHANIC Pulse 78 07/04/2024 2:40 PM VIDEO MACHINES MECHANIC Temperature 36.8 ??C (98.3 ??F) 07/04/2024 2:40 PM CS T Respiratory Rate 18 07/04/2024 2:40 PM VIDEO MACHINES MECHANIC Oxygen Saturation 93% 07/04/2024 2:40 PM VIDEO MACHINES MECHANIC Inhaled Oxygen Concentration - - Weight 79 kg (174 lb 1.6 oz) 07/04/2024 2:40 PM VIDEO MACHINES MECHANIC Height 172.7 cm (5' 7.99 ) 07/04/2024 2:40 PM CS T Body Mass Index 26.48 07/04/2024 2:40 PM VIDEO MACHINES MECHANIC Plan of Treatment Not on file Medical Devices Implanted Type Area Spinner Continuous Device Identifier Shelf Expiration Date Model / Serial / Lot [employer] Endocardial Pacing Lead Promri Solia T [id number] - [id number] - [id number] Implanted:Qty: 1 on 04/01/2024 by El Ogden MD at [facility] Lead [employer] 10/07/2024 [id number] / [id number] / [employer] Pacemaker Implantable Amvia Edge Dual Chamb Rate-Responsive [id number] - [id number] - [id number] Implanted:Qty: 1 on 04/01/2024 by El Ogden MD at [facility] Lead [employer] 07/10/2025 [id number] / [id number] / Med[employer] Tyrx Absorbable Antibacterial Envelope-Large 3.3x2.9in [id number] - [id number] Implanted:Qty: 1 on 04/01/2024 by El Ogden MD at [facility] [employer] 01/01/2025 CMRM [id number] / / [id number] [employer] Endocardial Pacing Lead Promri Solia Jt [id number] - [id number] - [id number] Implanted:Qty: 1 on 04/01/2024 by El Ogden MD at [facility] [employer] 11/07/2024 [id number] / [id number] / Procedures Procedure Name Priority Date/Time Associated Diagnosis Comments DEVICE CHECK - REMOTE Routine 06/30/2024 10:30 AM VIDEO MACHINES MECHANIC Syncope and collapse 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 07/01/2024 Biotronik quarterly remote check The complete report is attached and is also available in Visit Navigator under [employer] Consultant Periodic IEGM Detection Jul 01, 2024: Dual Chamber PPM implanted March 2024 Battery Status: OK/100% Ap: ??61% RVp: ??1% Next Appointment: 08/17/2024 (marked for reschedule) No recorded episodes this monitoring period Reviewed By Marybeth Argueta GAS MAIN AND LINE FITTER ATTESTATION I have reviewed the device interrogation [...] LAB BLOOD ORDERABLES Final Resu lt [facility] 1 [facility] Department [place] [address] * (ABNORMAL) Albumin Creatinine Ratio, Urine (03/16/2024 9:58 AM CDT) Albumin Ur 75.1 mg/L Comment: Interpretive Data No reference range established. Current interpretive data was last revised 2018. Testing performed by: [address] [address] Creatinine Ur 72.3 mg/dL [facility] Comment: Interpretive Data No reference range established. Current interpretive data was last revised 2018. Testing performed by: [address] [address] Albumin Creatinine Ratio, Ur 104(H) 1 - 29 mg/g [facility] Comment:Testing performed by : [address] [address] Urine 03/16/2024 9:58 AM CDT 03/16/2024 2:06 PM CDT Matthias Parker MD LAB URINE ORDERABLES Luisana l Result Performing Organization Address [facility] de Phone Number [facility] [place] [address] * (ABNORMAL) Hemoglobin A1c (03/16/2024 9:58 AM CDT) Hgb A1C 9.7(H) 4.0 - 5.6 % Estimated Average Glucose 232 mg/dL [facility] Comment: The ADA recommends reporting an estimated Average Glucose (eAG) with all Hemoglobin A1c results using the equation derived from a study of 507 normal and diabetic adults. ??Minority populations were underrepresented and children were not included. ?? (Diabetes Care 31:6597-0543, 2008). ??The eAG is not equivalent to a fasting glucose. Blood 03/16/2024 9:58 AM CDT 03/16/2024 10:19 AM CDT Matthias Parker MD LAB BLOOD ORDERABLES Luisana l Result Performing Organization Address [facility] de Phone Number [facility] [place] [address] * (ABNORMAL) Lipid panel (03/16/2024 9:58 AM CDT) Pathologist [facility] Cholesterol 105 30 - 199 mg/dL Comment: [...] revised on 2018. Triglycerides 153(H) <=149 mg/dL [facility] Comment: Interpretive Data Ages < or [...] on 2018. HDL 38(L) >=40 mg/dL [facility] Comment: Interpretive Data Ages < or [...] on 2018. LDL, calculated 41 <=129 mg/dL [facility] Comment: Interpretive Data Ages < or [...] revised on 2024. Non-HDL Cholesterol 67 mg/dL [facility] Comment: Interpretive Data Ages < [...] 9:58 AM CDT 03/16/2024 10:19 AM CDT Matthias Parker MD LAB BLOOD ORDERABLES Luisana l Result [facility] Department [place] [address] * PSA screen (04/18/2023 8:28 AM VIDEO MACHINES MECHANIC) PSA-Total 0.75 <=6.20 ng/mL [facility] Comment: [...] last revised 21. Blood 04/18/2023 8:28 AM VIDEO MACHINES MECHANIC 04/18/2023 3:00 PM VIDEO MACHINES MECHANIC Lauren Lundberg NP LAB BLOOD ORDERABLES Final Result [facility] [address] [place] [address] * HM DIABETES EYE EXAM (01/23/2023) SCRIBED HM DIABETIC DILATED EYE EXAM Normal us Historical Provider HEALTH MAINTENANCE Final Result * Colonoscopy (05/25/2010) Anatomical Region Laterality Modality Other Impressions 05/25/2010 Polyp us Historical Provider ENDOSCOPY PROCEDURES Luisana l Result from Last 3 Months or Most Recently Relevant to Health Maintenance Insurance [facility] MEDIC[facility] MEDIC[facility] Advance Directives For more information, please contact: [phone] Documents on File Type Date Recorded Patient Club Waiter/Waitress Expl anation ADVANCE DIRECTIVE 05/29/2022 11:15 AM [...] Communication Shikha Neri Daughter Health Care Agent [email or web address] Care Teams Long Term Care Phlebotomist Relationship Specialty Start Date End Date Matthias Parker MD [address] [place] [address] PCP - General Family Medicine 11/14/21
--- OUTSIDE RECORDS SUMMARY | 2024-07-04 19:17 | XMS_ITS | Referral Summary ---
Author Organization 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; Pacemaker 05/19/2024 2:00 PM TRIMMER TAILER Office Visit [facility] at [address] [address] Matthias Parker MD 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 (CMS/HCC) (HCC) (Primary Dx); Type 2 diabetes mellitus with diabetic polyneuropathy, without long-term current use of insulin (HCC); Type 2 diabetes mellitus with hyperlipidemia (HCC); Sick sinus syndrome (CMS/HCC) ([facility]); 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; Hypertension associated with diabetes ([facility]); Benign prostatic hyperplasia with urinary frequency 05/15/2024 [facility]phone [facility] [address] [address] Matthias Parker MD Medication Request 04/08/2024 2:45 PM CDT Office Visit [facility] at [address] [place] [id number] El Ogden MD Syncope and collapse (Primary Dx) 04/07/2024 [facility] [address] [address] Matthias Parker MD Medical Question/Miscellaneou s 04/03/2024 [facility]phone [facility] [address] [address] Matthias Parker MD Medical Records [...] without long-term current use of insulin (CMS/HCC) ([facility]) TAKE 1 TABLET(500 MG) BY MOUTH THREE [...] daily 90 capsule 1 4 Active omega 5-eyt-fnx-fish oil 1,200 (144-216) mg capsule Take 1,200 [...] hyperglycemia, without long-term current use of insulin ([facility]) Use to inject once nightly 100 each 11 4 Active insulin glargine 100 unit/mL (3 mL) pen for injectionIndicatio ns:Type 2 diabetes mellitus with hyperglycemia, without long-term current use of insulin ([facility]) Inject 10 Units under the skin nightly [...] 04/01/2024 Assessment & Plan (05/19/2024 2:14 PM TRIMMER TAILER): S/p pacemaker placement. NO further syncopal episodes. [...] & Plan (03/10/2024 3:30 PM CDT): Wearing cardiac monitor technician. Following closely with Cardiology. Scheduled for pacemaker placement 03/19/24. 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 Controlled type 2 diabetes m ellitus with diabetic polyneuropathy, without long-term current use of insulin 01/27/2024 Hypertension associated with diabetes 09/16/2023 Assessment & Plan (05/19/2024 2:13 PM TRIMMER TAILER): Stable on olmesartan. As above. Subacute cough 03/01/2023 Assessment & Plan (03/01/2023 9:35 AM CDT): No abnormal findings on exam. Patient denies feeling unwell. No fevers, shortness of breath dizziness, fatigue or changes in appetite. Lungs clear on exam, vital signs within normal limits. Recommended continued symptomatic treatment, can try a nonsedating acbj-ymz-fbhajgn antihistamine to help with postnasal drainage contributing to cough. Encouraged patient and his to call office in 1 week to give an update of symptoms. Will call sooner with any new or worsening symptoms. Will plan to order CXR. Rash as adverse effect of penicillin 06/14/2022 Assessment & Plan (06/14/2022 2:18 PM TRIMMER TAILER): Discontinue augmentin. No facial swelling, sob or voice changes. Rash localized to patients face, non itching. Instructed to take benadryl for drug reaction rash. Reviewed signs of serious allergic reaction requiring immediate ER evaluation. Dental infection 06/14/2022 Assessment & Plan (06/14/2022 2:17 PM TRIMMER TAILER): Discontinue augmentin. Prescribed doxycyline for dental infection. [...] as needed. Coronary artery disease invo lving capitan grande coronary artery of capitan grande heart without angina pectoris 04/02/2017 Assessment & Plan (05/19/2024 2:13 PM TRIMMER TAILER): Seconasdry prevneiton. WIll montior response. Assessment & [...] 04/02/2017 Assessment & Plan (05/19/2024 2:14 PM TRIMMER TAILER): Dual agnet therapy with finasteride and tamsulosin. MOntior for orthostasis. Assessment & Plan (05/26/2019 10:58 AM TRIMMER TAILER): Stable with acute on chronic complaint of urinary frequency likely D/T infection. Cnt. Flomax once daily as prior prescribed. Last PSA testing under [facility] at 1.3. Hypertensive heart disease w ith chronic diastolic congestive heart failure ([facility]) 10/24/2013 Overview (09/12/2016): HYPERTENSION NOS Assessment & Plan (05/19/2024 2:12 PM TRIMMER TAILER): Reivewed BP control and will montior ersponse. NO chest pains/pheadaches. No sig orthostasis. Reivewed hydration. Assessment & Plan (03/10/2024 3:30 PM CDT): Stable; blood pressure is well controlled. No acute changes in weight. Assessment & Plan (05/13/2020 8:30 AM TRIMMER TAILER): Recommend DASH diet, heart-healthy lifestyle, exercise. Discussed [...] UNCNTR Assessment & Plan (05/19/2024 2:13 PM TRIMMER TAILER): Reviwed glycemic control and iwll montior response. Encourage healthy food chocices and regular insulin usage. Assessment & Plan (03/01/2023 9:33 AM CDT): Stable, continue current regimen. Labs ordered today for patient to repeat a few days prior to scheduled office visit. Continues metformin 500 mg t.i.d. Assessment & Plan (05/26/2019 10:57 AM TRIMMER TAILER): Stable with last hemoglobin A1c at 7.2%. [...] 11/2019 Assessment & Plan (05/26/2019 10:57 AM TRIMMER TAILER): Acute UTI vs prostatitis likely cause. Initiating [...] Name Administration Dates Next Due COVID-19 mRNA ([employer]) 0.3 m L (30 mcg) vaccine (12 years and up) 04/10/2024 Influenza, Quadrivalent, Hig h Dose, Preservative Free, Intrr 03/30/2021 Influenza, Trivalent, High D ose, Split, Preservative Free, Intramuscular 03/02/2019,03/13/2018,03/13/2017,02/27,03/09/2015,03/29/2014 Influenza, Trivalent, IM (MDV) 03/18/2013,2010 Influenza, Unspecified 03/10/2024,2023(Deferred: Patient Refused),03/14/2023,03/01/2023(Deferre d: Patient Refused),03/10/2022,02/09/2021(Deferre d: Patient Refused),03/16/2020,03/02/2019 Modanisa SARS-CoV-2 Monovalent Vaccination (12+ Yrs) PURPLE 03/26/2023,03/13/2021,07/07/2020,06/15 [...] on file Legal Sex Male 12:02 PM TRIMMER TAILER Gender Identity Male 10/15/2020 8:47 PM CDT Sexual Orientation Straight 10/15/2020 8: 47 PM CDT Last Filed Vital Signs Vital Sign Reading Time Taken Comments Blood Pressure 195/71 07/04/2024 2:40 PM TRIMMER TAILER Pulse 78 07/04/2024 2:40 PM TRIMMER TAILER Temperature 36.8 ??C (98.3 ??F) 07/04/2024 2:40 PM CS T Respiratory Rate 18 07/04/2024 2:40 PM TRIMMER TAILER Oxygen Saturation 93% 07/04/2024 2:40 PM TRIMMER TAILER Inhaled Oxygen Concentration - - Weight 79 kg (174 lb 1.6 oz) 07/04/2024 2:40 PM TRIMMER TAILER Height 172.7 cm (5' 7.99 ) 07/04/2024 2:40 PM CS T Body Mass Index 26.48 07/04/2024 2:40 PM TRIMMER TAILER Plan of Treatment Not on file Medical Devices Implanted Type Area Community Health Specialist Device Identifier Shelf Expiration Date Model / Serial / Lot [employer] Endocardial Pacing Lead Promri Solia T [id number] - [id number] - [id number] Implanted:Qty: 1 on 04/01/2024 by El Ogden MD at [facility] Lead [employer] 10/07/2024 [id number] / [id number] / [employer] Pacemaker Implantable Amvia Edge Dual Chamb Rate-Responsive [id number] - [id number] - [id number] Implanted:Qty: 1 on 04/01/2024 by El Ogden MD at [facility] Lead [employer] 07/10/2025 [id number] / [id number] / Med[employer] Tyrx Absorbable Antibacterial Envelope-Large 3.3x2.9in [id number] - [id number] Implanted:Qty: 1 on 04/01/2024 by El Ogden MD at [facility] [employer] 01/01/2025 [id number] / / [id number] [employer] Endocardial Pacing Lead Promri Solia Jt [id number] - [id number] - [id number] Implanted:Qty: 1 on 04/01/2024 by El Ogden MD at [facility] [employer] 11/07/2024 [id number] / [id number] / Procedures Procedure Name Priority Date/Time Associated Diagnosis Comments DEVICE CHECK - REMOTE Routine 06/30/2024 10:30 AM TRIMMER TAILER Syncope and collapse 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 07/01/2024 Bi[employer]ronik quarterly remote check The complete report is attached and is also available in Visit Navigator under Water Quality Control Engineer Periodic IEGM Detection Jul 01, 2024: Dual Chamber PPM implanted March 2024 Battery Status: OK/100% Ap: ??61% RVp: ??1% Next Appointment: 08/17/2024 (marked for reschedule) No recorded episodes this monitoring period Reviewed By Marybeth Argueta LIQUID COMPOUNDER ATTESTATION I have reviewed the device interrogation [...] LAB BLOOD ORDERABLES Final Resu lt [facility] ([place]) [facility] Department [place] [address] * (ABNORMAL) Albumin Creatinine Ratio, Urine (03/16/2024 9:58 AM CDT) Albumin Ur 75.1 mg/L Comment: Interpretive Data No reference range established. Current interpretive data was last revised 2018. Testing performed by: [address] [address] Creatinine Ur 72.3 mg/dL [facility] ([place]) Comment: Interpretive Data No reference range established. Current interpretive data was last revised 2018. Testing performed by: [address] [address] Albumin Creatinine Ratio, Ur 104(H) 1 - 29 mg/g [facility] ([place]) Comment:Testing performed by : [address] [address] Urine 03/16/2024 9:58 AM CDT 03/16/2024 2:06 PM CDT Matthias Parker MD LAB URINE ORDERABLES Luisana l Result Performing Organization Address [facility] de Phone Number [facility] ([place]) 1 [facility] [place] [address] * (ABNORMAL) Hemoglobin A1c (03/16/2024 9:58 AM CDT) Hgb A1C 9.7(H) 4.0 - 5.6 % Estimated Average Glucose 232 mg/dL [facility] ([place]) Comment: The ADA recommends reporting an estimated Average Glucose (eAG) with all Hemoglobin A1c results using the equation derived from a study of 507 normal and diabetic adults. ??Minority populations were underrepresented and children were not included. ?? (Diabetes Care 31:1664-8711, 2008). ??The eAG is not equivalent to a fasting glucose. Blood 03/16/2024 9:58 AM CDT 03/16/2024 10:19 AM CDT Matthias Parker MD LAB BLOOD ORDERABLES Luisana l Result Performing Organization Address [facility] de Phone Number [facility] ([place] [place] [address] * (ABNORMAL) Lipid panel (03/16/2024 9:58 AM CDT) Pathologist [facility] Cholesterol 105 30 - 199 mg/dL Comment: [...] 2024. Non-HDL Cholesterol 67 mg/dL [facility] ([place]) Comment: Interpretive Data [...] BLOOD ORDERABLES Luisana l Result [facility] ([place]) [address] [facility] Department [place] [address] * PSA screen (04/18/2023 8:28 AM TRIMMER TAILER) PSA-Total 0.75 <=6.20 ng/mL [facility] Comment: [...] last revised 21. Blood 04/18/2023 8:28 AM TRIMMER TAILER 04/18/2023 3:00 PM TRIMMER TAILER Lauren Lundberg NP LAB BLOOD ORDERABLES Final Result [facility] [address] Department [place] [address] * HM DIABETES EYE EXAM (01/23/2023) SCRIBED HM DIABETIC DILATED EYE EXAM Normal us Historical Provider HEALTH MAINTENANCE Final Result * Colonoscopy (05/25/2010) Anatomical Region Laterality Modality Other Impressions 05/25/2010 Polyp us Historical Provider ENDOSCOPY PROCEDURES Luisana l Result from Last 3 Months or Most Recently Relevant to Health Maintenance Insurance [facility] Advance Directives For more information, please contact: [phone] Documents on File Type Date Recorded Patient Director Phone Expl anation ADVANCE DIRECTIVE 05/29/2022 11:15 AM [...] Communication Shikha Neri Daughter Health Care Agent [email or web address] Care Teams Check Out Clerk Relationship Specialty Start Date End Date Matthias Parker MD [address] [place] [address] PCP - General Family Medicine 11/14/21
--- OUTSIDE RECORDS SUMMARY | 2024-07-04 19:17 | XMS_ITS | Encounter Summary ---
Author Organization [facility] Address [address] [place] [address] Phone Care Team Providers Care Hand Packer Name Role Phone David Sheikh MD Primary Care Provider [phone] Matthias Parker MD Primary Care Provider [phone] Angeles Steve [facility] Unavailable [phone] Encounter Details Date Type Department Care Team (Late st Contact Info) Description 09/27/2017 Orders Only [facility] ProviderNeetu MD [address] [place] [address] Social History Tobacco Use Types Packs/Day Years Used Date Smoking Tobacco: Never Alcohol Use Standard Drinks/Week Comments Yes 0 (1 standard drink = 0.6 oz pur e alcohol) Sex and Gender Information Value Date Recorded Sex Assigned at Not on file Legal Sex Male 12:02 PM PIANO TUNER Gender Identity Male 10/15/2020 8:47 PM CDT [...] documented as of this encounter Care Teams Hand Packer Relationship Specialty Start Date End Date David Sheikh MD PCP - General 09/07/16 11/13/21 Matthias Parker MD [address] [place] [address] PCP - General Family Medicine 11/14/21 Angeles Steve, [address] [place] [address] Pharmacist Pharmacy 06/25/23 07/17/23 documented as of this encounter
--- OUTSIDE RECORDS SUMMARY | 2024-07-04 19:17 | XMS_ITS | Clinical Summary ---
Author Organization [facility] Address [address] [place] [address] Care Team Providers Care Muffler Hand Name Role Phone Matthias Parker MD Primary Care Provider [phone] Allergies Active Allergy Reactions Criticality Noted Date [...] with chronic diastolic congestive heart failure (CMS/HCC) ([facility]) TAKE 1 TABLET(6.25 MG) BY MOUTH TWICE [...] daily 90 capsule 1 4 Active omega 0-ehs-eeh-fish oil 1,200 (144-216) mg capsule Take 1,200 [...] hyperglycemia, without long-term current use of insulin ([facility]) Use to inject once nightly 100 each 11 4 Active insulin glargine 100 unit/mL (3 mL) pen for injectionIndicatio ns:Type 2 diabetes mellitus with hyperglycemia, without long-term current use of insulin ([facility]) Inject 10 Units under the [...] 04/01/2024 Assessment & Plan (05/19/2024 2:14 PM RUSTIC TERRAZZO SETTER): S/p pacemaker placement. NO further syncopal episodes. [...] Plan (03/10/2024 3:30 PM CDT): Wearing cardiac cath rn. Following closely with Cardiology. Scheduled for pacemaker placement 03/19/24. 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 Controlled type 2 diabetes m ellitus with diabetic polyneuropathy, without long-term current use of insulin 01/27/2024 Hypertension associated with diabetes 09/16/2023 Assessment & Plan (05/19/2024 2:13 PM RUSTIC TERRAZZO SETTER): Stable on olmesartan. As above. Subacute cough 03/01/2023 Assessment & Plan (03/01/2023 9:35 AM CDT): No abnormal findings on exam. Patient denies feeling unwell. No fevers, shortness of breath dizziness, fatigue or changes in appetite. Lungs clear on exam, vital signs within normal limits. Recommended continued symptomatic treatment, can try a nonsedating tjvu-sax-oyhjibf antihistamine to help with postnasal drainage contributing to cough. Encouraged patient and his to call office in 1 week to give an update of symptoms. Will call sooner with any new or worsening symptoms. Will plan to order CXR. Rash as adverse effect of penicillin 06/14/2022 Assessment & Plan (06/14/2022 2:18 PM RUSTIC TERRAZZO SETTER): Discontinue augmentin. No facial swelling, sob or voice changes. Rash localized to patients face, non itching. Instructed to take benadryl for drug reaction rash. Reviewed signs of serious allergic reaction requiring immediate ER evaluation. Dental infection 06/14/2022 Assessment & Plan (06/14/2022 2:17 PM RUSTIC TERRAZZO SETTER): Discontinue augmentin. Prescribed doxycyline for dental infection. [...] as needed. Coronary artery disease invo lving kaguy[place] coronary artery of kaguy[place] heart without angina pectoris 04/02/2017 Assessment & Plan (05/19/2024 2:13 PM RUSTIC TERRAZZO SETTER): Seconasdry prevneiton. WIll montior response. Assessment & [...] 04/02/2017 Assessment & Plan (05/19/2024 2:14 PM RUSTIC TERRAZZO SETTER): Dual agnet therapy with finasteride and tamsulosin. MOntior for orthostasis. Assessment & Plan (05/26/2019 10:58 AM RUSTIC TERRAZZO SETTER): Stable with acute on chronic complaint of urinary frequency likely D/T infection. Cnt. Flomax once daily as prior prescribed. Last PSA testing under [facility] at 1.3. Hypertensive heart disease w ith chronic diastolic congestive heart failure (CMS/HCC) 10/24/2013 Overview (09/12/2016): HYPERTENSION NOS Assessment & Plan (05/19/2024 2:12 PM RUSTIC TERRAZZO SETTER): Reivewed BP control and will montior ersponse. NO chest pains/pheadaches. No sig orthostasis. Reivewed hydration. Assessment & Plan (03/10/2024 3:30 PM CDT): Stable; blood pressure is well controlled. No acute changes in weight. Assessment & Plan (05/13/2020 8:30 AM RUSTIC TERRAZZO SETTER): Recommend DASH diet, heart-healthy lifestyle, exercise. Discussed [...] UNCNTR Assessment & Plan (05/19/2024 2:13 PM RUSTIC TERRAZZO SETTER): Reviwed glycemic control and iwll montior response. Encourage healthy food chocices and regular insulin usage. Assessment & Plan (03/01/2023 9:33 AM CDT): Stable, continue current regimen. Labs ordered today for patient to repeat a few days prior to scheduled office visit. Continues metformin 500 mg t.i.d. Assessment & Plan (05/26/2019 10:57 AM RUSTIC TERRAZZO SETTER): Stable with last hemoglobin A1c at 7.2%. [...] 05/26/201911/2019 Assessment & Plan (05/26/2019 10:57 AM RUSTIC TERRAZZO SETTER): Acute UTI vs prostatitis likely cause. Initiating [...] Department Care Team Description 07/04/2024 2:30 PM RUSTIC TERRAZZO SETTER Office Visit [facility] at [address] [phone] Sanjuanita Garrido PA Altered mental status, unspecified altered mental status type (Primary Dx); Hypertensive urgency 07/01/2024 3:45 PM RUSTIC TERRAZZO SETTER Ancillary Procedure [facility] [address] [place] [phone] Syncope and collapse; Coronary artery disease involving kaguyuk coronary artery of kaguy[place] heart without angina pectoris; Pacemaker 05/19/2024 2:00 PM RUSTIC TERRAZZO SETTER Office Visit [facility] Primary Care at [address] [phone] Matthias Parker MD 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 (CMS/HCC) (HCC) (Primary Dx); Type 2 diabetes mellitus with diabetic polyneuropathy, without long-term current use of insulin (HCC); Type 2 diabetes mellitus with hyperlipidemia (HCC); Sick sinus syndrome (CMS/HCC) (HCC); Coronary artery disease involving kaguy[place] coronary artery of kaguy[place] heart without angina pectoris; Hypertension associated with diabetes (HCC); Benign prostatic hyperplasia with urinary frequency 05/15/2024 Telephone [facility] [address] [phone] Matthias Parker MD Medication Request 04/08/2024 2:45 PM CDT Office Visit [facility] at [address] [place] [phone] El Ogden MD Syncope and collapse (Primary Dx) 04/07/2024 Telephone [facility] [address] [phone] Matthias Parker MD Medical Question/Miscellaneou s 04/03/2024 Telephone [facility] [address] [phone] Matthias Parker MD Medical Records Request from Last 3 Months Immunizations Name Administration Dates Next Due COVID-19 mRNA (UPR-Online) 0.3 m L (30 mcg) vaccine (12 years and up) 04/10/2024 Influenza, Quadrivalent, Hig h Dose, Preservative Free, Intrr 03/30/2021 Influenza, Trivalent, High D ose, Split, Preservative Free, Intramuscular 03/02/2019,03/13/2018,03/13/2017,02/27,03/09/2015,03/29/2014 Influenza, Trivalent, IM (MDV) 03/18/2013,2010 Influenza, Unspecified 03/10/2024,2023(Deferred: Patient Refused),03/14/2023,03/01/2023(Deferre d: Patient Refused),03/10/2022,02/09/2021(Deferre d: Patient Refused),03/16/2020,03/02/2019 [employer] SARS-CoV-2 Monovalent Vaccination (12+ Yrs) PURPLE 03/26/2023,03/13/2021,07/07/2020,06/15 [...] on file Legal Sex Male 12:02 PM RUSTIC TERRAZZO SETTER Gender Identity Male 10/15/2020 8:47 PM CDT Sexual Orientation Straight 10/15/2020 8: 47 PM CDT Obstetrics History Last Filed Vital Signs Vital Sign Reading Time Taken Comments Blood Pressure 195/71 07/04/2024 2:40 PM RUSTIC TERRAZZO SETTER Pulse 78 07/04/2024 2:40 PM RUSTIC TERRAZZO SETTER Temperature 36.8 ??C (98.3 ??F) 07/04/2024 2:40 PM CS T Respiratory Rate 18 07/04/2024 2:40 PM RUSTIC TERRAZZO SETTER Oxygen Saturation 93% 07/04/2024 2:40 PM RUSTIC TERRAZZO SETTER Inhaled Oxygen Concentration - - Weight 79 kg (174 lb 1.6 oz) 07/04/2024 2:40 PM RUSTIC TERRAZZO SETTER Height 172.7 cm (5' 7.99 ) 07/04/2024 2:40 PM CS T Body Mass Index 26.48 07/04/2024 2:40 PM RUSTIC TERRAZZO SETTER Plan of Treatment Health Maintenance Due Date [...] history exists Medical Devices Implanted Type Area Space Control Supervisor Device Identifier Shelf Expiration Date Model / Serial / Lot [employer] Endocardial Pacing Lead Promri Solia T [id number] - [id number] - [id number] Implanted:Qty: 1 on 04/01/2024 by El Ogden MD at [facility] Lead [employer] 10/07/2024 [id number] / [id number] / [employer] Pacemaker Implantable Amvia Edge Dual Chamb Rate-Responsive [id number] - [id number] - [id number] Implanted:Qty: 1 on 04/01/2024 by El Ogden MD at [facility] Lead [employer] 07/10/2025 [id number] / [id number] / Med[employer]onic [employer] Tyrx Absorbable Antibacterial Envelope-Large 3.3x2.9in [id number] - [id number] Implanted:Qty: 1 on 04/01/2024 by El Ogden MD at [facility] [employer] 01/01/2025 [id number] / / [id number] [employer] Endocardial Pacing Lead Promri Solia Jt [id number] - [id number] - [id number] Implanted:Qty: 1 on 04/01/2024 by El Ogden MD at [facility] [employer] 11/07/2024 [id number] / [id number] / Procedures Procedure Name Priority Date/Time Associated Diagnosis Comments DEVICE CHECK - REMOTE Routine 06/30/2024 10:30 AM RUSTIC TERRAZZO SETTER Syncope and collapse Coronary artery disease involving kaguyuk coronary artery of kaguyuk heart without angina pectoris Pacemaker EGFR Routine [...] (HCC) PSA SCREEN Routine 04/18/2023 8:28 AM RUSTIC TERRAZZO SETTER Encounter for prostate cancer screening HM DIABETES EYE EXAM Routine 01/23/2023 COLONOSCOPY Routine 05/25/2010 from Last 3 Months or Most Recently Relevant to Health Maintenance Results * DEVICE CHECK - REMOTE (06/30/2024 10:30 AM RUSTIC TERRAZZO SETTER) Anatomical Region Laterality Modality Other Narrative 07/02/2024 3:32 PM RUSTIC TERRAZZO SETTER Images from the original result were not included. 07/01/2024 [employer] quarterly remote check The complete report is attached and is also available in Visit Navigator under Analyst Sales Periodic IEGM Detection Jul 01, 2024: Dual Chamber PPM implanted March 2024 Battery Status: OK/100% Ap: ??61% RVp: ??1% Next Appointment: 08/17/2024 (marked for reschedule) No recorded episodes this monitoring period Reviewed By Marybeth Argueta SALES LEDGER ADMINISTRATOR ATTESTATION I have reviewed the device interrogation [...] Final Resu lt [facility] ([place]) 1 [facility] Department [place] [address] * (ABNORMAL) Albumin Creatinine Ratio, Urine (03/16/2024 9:58 AM CDT) Albumin Ur 75.1 mg/L Comment: Interpretive Data No reference range established. Current interpretive data was last revised 2018. Testing performed by: [facility], [address] [place] [address]., [address] Creatinine Ur 72.3 mg/dL [facility] ([place]) Comment: Interpretive Data No reference range established. Current interpretive data was last revised 2018. Testing performed by: [address] [address] Albumin Creatinine Ratio, Ur 104(H) 1 - 29 mg/g [facility] ([place]) Comment:Testing performed by : [address] [address] Urine 03/16/2024 9:58 AM CDT 03/16/2024 2:06 PM CDT Matthias Parker MD LAB URINE ORDERABLES Luisana l Result Performing Organization Address [facility] Co de Phone Number [facility] ([place]) 1 [facility] [place] [address] * (ABNORMAL) Hemoglobin A1c (03/16/2024 9:58 AM CDT) Hgb A1C 9.7(H) 4.0 - 5.6 % Estimated Average Glucose 232 mg/dL [facility] ([place]) Comment: The ADA recommends reporting an estimated Average Glucose (eAG) with all Hemoglobin A1c results using the equation derived from a study of 507 normal and diabetic adults. ??Minority populations were underrepresented and children were not included. ?? (Diabetes Care 31:4423-1868, 2008). ??The eAG is not equivalent to a fasting glucose. Blood 03/16/2024 9:58 AM CDT 03/16/2024 10:19 AM CDT us Matthias Parker MD LAB BLOOD ORDERABLES Luisana gale Result [facility] ([place]) 1 [facility] Department [place] [address] * (ABNORMAL) Lipid panel (03/16/2024 9:58 AM [...] 2024. Non-HDL Cholesterol 67 mg/dL [facility] ([place]) Comment: Interpretive Data Ages < or = [...] BLOOD ORDERABLES Luisana beasley Result [facility] ([place]) 1 [facility] Department [place] [address] * PSA screen (04/18/2023 8:28 AM RUSTIC TERRAZZO SETTER) PSA-Total 0.75 <=6.20 ng/mL [facility] Comment: [...] last revised 21. Blood 04/18/2023 8:28 AM RUSTIC TERRAZZO SETTER 04/18/2023 3:00 PM RUSTIC TERRAZZO SETTER Lauren Lundberg RADIOLOGY NURSE LAB BLOOD ORDERABLES Final Result Performing Organization Address City/State/ZIP Co nv Phone Number [facility] [address] [place] [address] * DIABETES EYE EXAM (01/23/2023) SCRIBED DIABETIC DILATED EYE EXAM Normal Historical Provider MD HEALTH MAINTENANCE Final Result * Colonoscopy (05/25/2010) Anatomical Region Laterality Modality Other Impressions 05/25/2010 Polyp Historical Provider MD ENDOSCOPY PROCEDURES Luisana l Result from Last 3 Months or Most Recently Relevant to Health Maintenance Insurance [employer] MEDICARE [facility] MEDICARE [facility] MEDICARE Advance Directives For more information, please contact: [phone] Documents on File Type Date Recorded Patient Electronic Scanner Operator Expl anation ADVANCE DIRECTIVE 05/29/2022 11:15 AM [...] Communication Shikha Neri Daughter Health Care Agent [email or web address] Care Teams Muffler Hand Relationship Specialty Start Date End Date Matthias Parker MD [address] [place] [address] PCP - General Family Medicine 11/14/21
--- OUTSIDE RECORDS SUMMARY | 2024-07-04 19:17 | XMS_ITS | Encounter Summary ---
Author Organization [facility] Healthcare Address [address] [place] [address] Care Team Providers Care Rn Medication Name Role Phone Matthias Parker MD Primary Care Provider [phone] Reason for Visit * Reason Comments Urinary Symptom X 3 days, having tro uble urinating, and back pain on the right side Encounter Details Date Type Department Care Team (Late st Contact Info) Description 07/04/2024 2:30 PM INSPECTING ENGINEER Office Visit [facility] Convenient Care at [address] [phone] Sanjuanita Garrido PA [address] [place] [address] [address] [place] [address] Altered mental status, unspecified altered [...] on file Legal Sex Male 12:02 PM INSPECTING ENGINEER Gender Identity Male 10/15/2020 8:47 PM CDT Sexual Orientation Straight 10/15/2020 8: 47 PM CDT documented as of this encounter Last Filed Vital Signs Vital Sign Reading Time Taken Comments Blood Pressure 195/71 07/04/2024 2:40 PM INSPECTING ENGINEER Pulse 78 07/04/2024 2:40 PM INSPECTING ENGINEER Temperature 36.8 ??C (98.3 ??F) 07/04/2024 2:40 PM CS T Respiratory Rate 18 07/04/2024 2:40 PM INSPECTING ENGINEER Oxygen Saturation 93% 07/04/2024 2:40 PM INSPECTING ENGINEER Inhaled Oxygen Concentration - - Weight 79 kg (174 lb 1.6 oz) 07/04/2024 2:40 PM INSPECTING ENGINEER Height 172.7 cm (5' 7.99 ) 07/04/2024 2:40 PM CS T Body Mass Index 26.48 07/04/2024 2:40 PM INSPECTING ENGINEER documented in this encounter Plan of Treatment Not on file documented as of this encounter Visit Diagnoses Diagnosis Altered mental status, unspecified altered mental status type- Primary Hypertensive urgency documented in this encounter Care Teams Rn Medication Relationship Specialty Start Date [place] [address] PCP - General Family Medicine 11/14/21 documented as of this encounter
--- NOTE | 2024-07-04 19:25 | ED_ITS ---
HPI - Male Genitourinary General Chief complaint: Altered Mental Status Stated complaint: altered loc, diff urinating Time Seen by Provider: 07/04/24 19:13 History of Present Illness HPI Narrative: 89-year-old male with a past medical history including coronary artery disease, hypertension, hyperlipidemia, diabetes. Today presents from urgent care for evaluation of difficulty urinating and right-sided flank and back pain. Patient also had an episode of intermittent confusion that has resolved. Family is accompanying patient at bedside. Patient self states he has been having pain in his right-sided hip region and back with associated difficulty urinating. Patient has not urinated in the past 4-5 hours per report by nursing staff. Urgent care was concerned about a urinary tract infection and sent him into the emergency department. Patient at that time and episode of confusion was only alert oriented x2 but this has resolved and he is now alert oriented x4 at his baseline. Patient states that he did not fall or injure himself. Patient is accompanied by family who provide collateral formation states that he has otherwise been in his normal state of health without any injuries or illnesses, no recent hospitalizations. Family states that he has had urinary issues before. Patient presently denies any chest pain, upper abdominal pain, nausea, vomiting, hematuria, fever, chills, weakness or sensory deficits. Related Data Home Medications ?Medication ?Instructions ?Recorded ?Confirmed ?Last Taken ?Type aspirin 81 mg capsule 81 mg PO DAILY 01/15/24 01/15/24 Unknown History atorvastatin 80 mg tablet 80 mg PO HS 01/15/24 01/15/24 Unknown History carvedilol 6.25 mg tablet 6.25 mg PO Q12H 01/15/24 01/15/24 Unknown History clopidogrel 75 mg tablet 75 mg PO DAILY 01/15/24 01/15/24 Unknown History cyanocobalamin (vitamin B-12) 500 See Rx Instructions .Route .COMPLEX 01/15/24 01/15/24 Unknown History mcg tablet finasteride 5 mg tablet 5 mg PO DAILY 01/15/24 01/15/24 Unknown History furosemide 20 mg tablet 20 mg PO DAILY 01/15/24 01/15/24 Unknown History metformin 500 mg tablet 500 mg PO Q12H 01/15/24 01/15/24 Unknown History ceoloips-hb-ljbhw 300 mcg-K 60 See Rx Instructions .Route .COMPLEX 01/15/24 01/15/24 Unknown History mcg-lycop 600 mcg-lutein 300 mcg tablet (Centrshorty Mejia Men) olmesartan 40 mg tablet 40 mg PO DAILY 01/15/24 01/15/24 Unknown History omega 0-oez-lwr-fish oil 1,200 mg 1,200 cap PO TID 01/15/24 01/15/24 Unknown History (144 mg-216 mg) capsule (Fish Oil) saw palmetto 450 mg capsule 450 mg PO Q12H 01/15/24 01/15/24 Unknown History tamsulosin 0.4 mg capsule 0.4 mg PO Q12H 01/15/24 01/15/24 Unknown History Allergies Allergy/AdvReac Type Severity Reaction Status Date / Time No Known Allergies Allergy Verified 07/04/24 18:04 Review of Systems 2 Review of Systems: As reviewed above in [facility] Social History Social History Smoking status: Never smoker Alcohol intake: never Substance use: never Do You Feel Safe in your Home?: Yes Lack of Transportation: No Lack of Food: Never True Current Housing: I Have Housing Concerned About Future Housing: No Difficulty Paying Gas/Electric Bills: No Difficulty Paying for Meds: No Currently Unemployed: No Education: Master's Degree or Higher Difficulty w/ Childcare or Family Care: No Spiritual care concerns: No Exam 2 Narrative: GENERAL: [Well-appearing, well-nourished, and in no acute distress.] HEAD: [Normocephalic, atraumatic.] EYES: [PERRLA and EOMI.] ENT: Nares clear, no rhinorrhea or epistaxis. Mucous membranes moist. NECK: Supple. CHEST: [Clear to auscultation. No respiratory distress.] HEART: [Regular rate and rhythm]. No murmur heard. [Normal peripheral pulses.] ABDOMEN: Protuberant abdomen but soft, tender to palpation in the right lower quadrant, right flank, right-sided CVA region, [No rigidity or guarding] EXTREMITIES: Normal range of motion. [No edema.] Tenderness to palpation over the right-sided paraspinal muscles in the lumbar region. No midline cervical thoracic or lumbar spinal tenderness or overlying skin changes SKIN: Warm, dry, no rash. NEURO: [No focal deficits]. Alert and oriented [x3.] Answers all questions appropriately, EHL and FHL with 5/5 strength, hip flexors and extensors 5/5 strength, bilateral operations staff specialist security strength 5/5. No ataxia. No sensory changes. PSYCH: [Normal mood and affect.] Course Vital Signs Vital signs: Vital Signs Temperature 36.9 C 07/04/24 18:01 Pulse Rate 65 07/04/24 18:01 Respiratory Rate 18 07/04/24 18:01 Blood Pressure 148/53 H 07/04/24 18:01 Pulse Oximetry 98 07/04/24 18:01 Oxygen Delivery Room Air 07/04/24 18:01 Temperature 36.9 C 07/04/24 22:53 Pulse Rate 82 07/04/24 22:14 Respiratory Rate 12 07/04/24 22:14 Blood Pressure 140/54 L 07/04/24 22:14 Pulse Oximetry 98 07/04/24 22:14 Oxygen Delivery Room Air 07/04/24 18:23 MDM - Male Genitourinary MDM Narrative Medical decision making narrative: 89-year-old male with history of coronary disease, hypertension, hyperlipidemia and diabetes. Presents today with urinary issues including not being able to start urinating for last several hours associated with some right-sided flank and right-sided back pain there was an episode of intermittent confusion at urgent care where he was not able to answer the year or date to the nursing staff but this has since resolved and he is alert oriented as baseline x4. Patient otherwise appears well and is not any acute distress. He has some focal tenderness to the right-sided low paraspinal muscles and right-sided CVA/flank region but no overlying skin changes. No midline tenderness. Normal neurological assessment with full strength and sensation, no current red flag signs or symptoms of any kind of cord involvement or cauda equina given that he has full strength in both lower extremities, no sensation changes, no saddle anesthesias, bladder scan was conducted showing 140 cc per nursing staff. Vital signs show some mild hypertension but no other acute concerns such as fever, tachycardia, hypoxia. Workup was ordered this time including a CT of the head, CT of the lumbar and abdomen pelvis without contrast. Possibility at this time including kidney infection, kidney stone, urinary tract infection, musculoskeletal strain. Low suspicion for any kind of intracranial pathology at this time however given his age and confusion and urinary issues we will obtain CT head to assess. Lab work was obtained he was given a fluid bolus and Toradol for analgesia. Workup shows no leukocytosis or anemia. Normal electrolytes, glucose slightly elevated but in line with his chronic levels before. Normal renal function, normal hepatic function. Urine without signs of infection. CT of his head shows no acute intracranial process. 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 Patient was re-evaluated after pain control medications and felt improved. Given his unremarkable workup and clinical improvement I believe he can be safely discharged and follow-up with on outpatient basis. Patient and family members were comfortable with this plan of care and also given strict return precautions which they verbalized understanding. Medical Records Attestation: I reviewed the patient's medical records. Lab Data Attestation: I reviewed the patient's lab results. 07/04/24 19:31 07/04/24 19:31 Labs: Lab Results 07/04/24 07/04/24 Range/Units 19:31 20:28 WBC 9.2 (4.5-10.0) K/mm3 RBC 3.84 L (4.6-6.20) M/mm3 Hgb 13.1 L (14.0-18.0) g/dL Hct 38.3 L (42.0-52.0) % MCV 99.7 (80-100) fl MCH 34.1 H (26-34) pg MCHC 34.2 (32-36) g/dl RDW 13.2 (11.5-14.5) % Plt Count 198 (150-375) k/mm3 MPV 9.8 (7.4-10.4) fl Immature Gran % (Auto) 0.2 (0-0.5) % Neut % (Auto) 64.2 (45.5-73.1) % Lymph % (Auto) 22.8 (18.3-44.2) % [place] % (Auto) 12.3 H (2.6-8.5) % Eos % (Auto) 0.2 (0-4.4) % Baso % (Auto) 0.3 (0.2-1.2) % Lymph # (Auto) 2.09 (0.9-3.2) K/mm3 [place] # (Auto) 1.1 H (0.1-0.6) K/mm3 Eos # (Auto) 0.0 (0-0.3) K/mm3 Baso # (Auto) 0.0 (0.0-0.1) K/mm3 Abs Immat Gran (auto) 0.02 (0.00-0.031) K/mm3 Absolute Neuts (auto) 5.9 (1.3-6.7) K/mm3 Absolute Nucleated RBC 0.000 (0.0-0.012) K/mm3 Nucleated RBC % 0.0 (0.0-0.2) % Sodium 137 (137-145) mmol/L Potassium 3.9 (3.4-5.0) mmol/L Chloride 100 (98-107) mmol/L Carbon Dioxide 28 (22-30) mmol/L Anion Gap 9 (4-12) mmol/L BUN 17 (9-20) mg/dL Creatinine 0.92 (0.7-1.3) mg/dL Estim Creat Clear Calc 46 ml/min Estimated GFR > 60 (59 - ) Glucose 204 H (65-110) mg/dL Calcium 8.9 (8.4-10.2) mg/dL Magnesium 1.7 (1.6-2.3) mg/dL Total Bilirubin 0.7 (0.2-1.3) mg/dL AST 32 (17-59) U/L ALT 35 (6-50) U/L Alkaline Phosphatase 73 (38-126) U/L Total Protein 7.0 (6.3-8.2) g/dL Albumin 4.1 (3.5-5.1) g/dL Urine Color Yellow (Yellow) Urine Appearance Clear (Clear) Urine pH 8.0 (5.0-9.0) Ur Specific [place] 1.015 (1.001-1.035) Urine Protein 1+ H (Negative) mg/dL Urine Glucose (UA) 2+ H (Negative) mg/dL Urine Ketones Negative (Negative) mg/dL Ur Blood (Man) Negative (Negative) Urine Nitrate Negative (Negative) Urine Bilirubin Negative (Negative) Urine Urobilinogen 0.2 (<2.0) mg/dL Leukocyte Esterase Rfl Negative (Negative) DEREK/UL Urine RBC 0-2 (0-2) /hpf Urine WBC 0-5 (0-3) /hpf Ur Squamous Epith Cells None seen (Few) /hpf Urine Bacteria None seen /hpf Urine Casts 0-2 Imaging Data Attestation: I personally reviewed and interpreted this imaging study as follows: My impression: Impressions Head CT 07/04/24 21:25 Impression: No acute intracranial hemorrhage or suspicious mass effect. Miscellaneous CT Procedure 07/04/24 21:27 IMPRESSION: No acute intra-abdominal findings. Innumerable nonacute findings, as detailed above. Discharge Plan Discharge Clinical Impression: Urinary hesitancy, Acute right-sided low back pain without sciatica Patient Disposition: Home, Self-Care Condition: Stable Instructions: Antibiotic Form, Enlarged Prostate (BPH) (ED), Acute Low Back Pain (ED) Additional Instructions: Return to the ER if you have increased pain in your back, you develop lower extremity weakness/numbness/paralysis, you have numbness or tingling in your private parts, or you are unable to control your ability to urinate/stool. Your CT scan shows some degenerative disease in her lumbar spine and some disc bulging but no fractures or acute signs of concern at this time. Your urine does not have any active infection. Recommendations at this time a for Tylenol, ibuprofen, heat applied tear back for continued aches and pains. Follow-up with your regular doctor. Return with any new or worsening concerns as we talked about. Patient Language: Mexican Prescriptions: No Action atorvastatin 80 mg tablet 80 mg PO HS finasteride 5 mg tablet 5 mg PO DAILY metformin 500 mg tablet 500 mg PO Q12H carvedilol 6.25 mg tablet 6.25 mg PO Q12H clopidogrel 75 mg tablet 75 mg PO DAILY cyanocobalamin (vitamin B-12) 500 mcg Tablet See Rx Instructions .ROUTE .COMPLEX Rx Instructions: 500mg tablet every Saturday, Saturday, Saturday tamsulosin 0.4 mg capsule 0.4 mg PO Q12H furosemide 20 mg tablet 20 mg PO DAILY olmesartan 40 mg tablet 40 mg PO DAILY saw palmetto 450 mg Capsule 450 mg PO Q12H omega 1-jzq-ers-fish oil [Fish Oil] 1,200 (144-216) mg Capsule 1,200 cap PO TID Centrum Silver Men [id number] mcg Tablet See Rx Instructions .ROUTE .COMPLEX Rx Instructions: 1 tablet once daily aspirin 81 mg Capsule 81 mg PO DAILY Follow-up/Referrals: Harms,Matthias Dunn M.D. [Primary Care Provider] - Time of Disposition: 22:30
[2024-07-04 19:38] LABS: Basophils Percent Auto 0.3 % (0.2-1.2); Eosinophils Percent Auto 0.2 % (0-4.4); Hematocrit 38.3 % (42.0-52.0); Hemoglobin 13.1 g/dL (14.0-18.0); Immature Granulocyte Absolute 0.02 K/mm3 (0.00-0.031); Immature Granulocyte Percent A 0.2 % (0-0.5); Lymphocytes Absolute Auto 2.09 K/mm3 (0.9-3.2); Lymphocytes Percent Auto 22.8 % (18.3-44.2); Mean Corpuscular HGB Conc 34.2 g/dl (32-36); Mean Corpuscular Hemoglobin 34.1 pg (26-34); Mean Corpuscular Volume 99.7 fl (80-100); Mean Platelet Volume 9.8 fl (7.4-10.4); Monocytes Absolute Auto 1.1 K/mm3 (0.1-0.6); Monocytes Percent Auto 12.3 % (2.6-8.5); Neutrophils Absolute Auto 5.9 K/mm3 (1.3-6.7); Neutrophils Percent Auto 64.2 % (45.5-73.1); Platelet Count Result 198 k/mm3 (150-375); Red Blood Count 3.84 M/mm3 (4.6-6.20); Red Cell Distribution Width 13.2 % (11.5-14.5); White Blood Count 9.2 K/mm3 (4.5-10.0)
[2024-07-04] MEDS: LACTATED RINGERS 1,000 ML 999 ML IV CONT (19:47)
[2024-07-04] MEDS: KETOROLAC 15 MG/ML VIAL (*BKC) IV PUSH (19:48)
[2024-07-04 19:49] LABS: Alanine Aminotransferase 35 U/L (6-50); Albumin Level 4.1 g/dL (3.5-5.1); Alkaline Phosphatase 73 U/L (38-126); Anion Gap 9 mmol/L (4-12); Aspartate Amino Transferase 32 U/L (17-59); Bilirubin,Total 0.7 mg/dL (0.2-1.3); Blood Urea Nitrogen 17 mg/dL (9-20); Calcium 8.9 mg/dL (8.4-10.2); Carbon Dioxide 28 mmol/L (22-30); Chloride 100 mmol/L (98-107); Estimated CRCL calculation 46 ml/min; Estimated Glomerular Filt Rate > 60; Glucose 204 mg/dL (65-110); Magnesium 1.7 mg/dL (1.6-2.3); Potassium 3.9 mmol/L (3.4-5.0); Sodium 137 mmol/L (137-145)
[2024-07-04 20:42] LABS: Add Urine Microscopic? YES; Appearance Urine Clear (Clear); Bacteria Urine None Seen /hpf; Bilirubin Urine Negative (Negative); Blood Urine Negative (Negative); Color Urine Yellow (Yellow); Glucose Urine UA 2+ mg/dL (Negative); Ketones Urine Negative (Negative); Leukocyte Esterase Ur Negative LEU/UL (Negative); Nitrate Urine Negative (Negative); Non Pathogenic Casts 0-2; Protein Urine 1+ mg/dL (Negative); RBC Urine 0-2 /hpf (0-2); Specific Grav Ur 1.015 (1.001-1.035); Squamous Epithelial Cell Urine None Seen /hpf (Few); Urobilinogen Urine 0.2 mg/dL (<2.0); WBC Urine 0-5 /hpf (0-3)
[2024-07-04] MEDS: HYDROmorphone HCL INJ (*CRX) 1 MG/ML SYR 0.5 MG IV PUSH (22:10)
== END 2024-07-04 22:56 | disposition home or self-care (01) ==
PROVIDERS: Emergency Provider Student in an Organized Health Care Education/Training Program; PCP Family Medicine
DX: M54.50 Low back pain, unspecified (principal); R39.11 Hesitancy of micturition; I25.10 Atherosclerotic heart disease of native coronary artery without angina pectoris; I10 Essential (primary) hypertension; E78.5 Hyperlipidemia, unspecified; E11.9 Type 2 diabetes mellitus without complications; Z79.82 Long term (current) use of aspirin; Z79.84 Long term (current) use of oral hypoglycemic drugs; Z79.899 Other long term (current) drug therapy
CPT/HCPCS: 36415; 70450; 72131; 74176; 80053; 81001; 83735; 85025; 96361; 96374; 96375; 99284; J1171; J1885; J7120

== ENCOUNTER 2024-10-09 11:54 | Emergency (ER) | payer MEDICARE, SELFPAY ==
--- NOTE | ~2024-10-09 | CT_ITS ---
EXAMINATION: CT abdomen pelvis wo con DATE: 10/09/2024 14:37 INDICATION: Urinary pain. Hematuria. TECHNIQUE: Computed tomography (CT) of the abdomen and pelvis was performed without intravenous contr ast. Automated exposure control and iterative reconstruction technique were employed. The dose-length product was 648.96 mGy-cm. COMPARISON: 07/04/2024 FINDINGS: Unchanged mild tree-in-bud opacities in the dependent right lower lobe consistent with chronic pneumo kimberly. Slightly larger 5 mm right lower lobe nodule. Mild discoid atelectasis and mild bronchiectatic c hanges in the bilateral lower lungs. Heart size is normal. Atherosclerotic coronary artery cavitation . Cardiac pacemaker leads terminating at the right atrium and right ventricle. No pericardial or pleu ral effusion. Cholecystectomy clips the gallbladder fossa. Spleen, pancreas and bilateral adrenal gla nds are normal. Bilateral renal cysts measuring up to 0.5 cm at the upper pole the right kidney. 4 mm nonobstructing stone at a lower pole calyx of the left kidney. 2 additional stones previously seen a t the lower pole of the left kidney are no longer visualized, either in the kidney, left ureter or bl adder and has likely passed. The left ureter appears slightly larger diameter than the right with connor e periureteral stranding which could be related to recent stone passage versus ascending urinary trac t infection. Bladder is decompressed. Bowels including the appendix are normal. Small fat-containing umbilical hernia. This also a small fat-containing right inguinal hernia. No free intraperitoneal gas or fluid. No pathologically enlarged abdominal or pelvic lymphadenopathy. Severe lumbar spondylosis. . IMPRESSION: 1. Nonobstructing left nephrolithiasis with interval passage of 2 of the 3 prior renal stones. The le ft ureter slightly larger in diameter and the right with some periureteral stranding which could be r elated to recent stone passage versus ascending urinary tract infection. Correlate with urinalysis. 2. Mild bronchiectatic changes, scarring in the bilateral lower lobes with chronic tree-in-bud opacit ies in the right lower lobe consistent with sequela of chronic infection. 3. Small fat-containing umbilical and right inguinal hernias. Reviewed, dictated and finalized at location A. IMPRESSION: 1. Nonobstructing left nephrolithiasis with interval passage of 2 of the 3 prio r renal stones. The left ureter slightly larger in diameter and the right with some periureteral stranding which could be related to recent stone passage vers us ascending urinary tract infection. Correlate with urinalysis. 2. Mild bronchiectatic changes, scarring in the bilateral lower lobes with filenet developer katerin tree-in-bud opacities in the right lower lobe consistent with sequela of ch ronic infection. 3. Small fat-containing umbilical and right inguinal hernias.
[2024-10-09 11:59] VITALS: BP 167/59; PULSE 75; RESP 16; TEMP 37; O2SAT 98
--- NOTE | 2024-10-09 12:55 | ED.GENADULT ---
HPI - General Adult General Chief complaint: Urogenital-Male Stated complaint: Difficulty with urination-burning Time Seen by Provider: 10/09/24 12:36 History of Present Illness HPI narrative: 89-year-old male presents emergency department for evaluation for painful urination concern for decreased urination. Does have history of urinary retention. also states the patient does not drink enough fluids. Patient denies any recent illness denies any fevers. Related Data Home Medications ?Medication ?Instructions ?Recorded ?Confirmed ?Last Taken ?Type aspirin 81 mg capsule 81 mg PO DAILY 01/15/24 01/15/24 Unknown History atorvastatin 80 mg tablet 80 mg PO HS 01/15/24 01/15/24 Unknown History carvedilol 6.25 mg tablet 6.25 mg PO Q12H 01/15/24 01/15/24 Unknown History clopidogrel 75 mg tablet 75 mg PO DAILY 01/15/24 01/15/24 Unknown History cyanocobalamin (vitamin B-12) 500 See Rx Instructions .Route .COMPLEX 01/15/24 01/15/24 Unknown History mcg tablet finasteride 5 mg tablet 5 mg PO DAILY 01/15/24 01/15/24 Unknown History furosemide 20 mg tablet 20 mg PO DAILY 01/15/24 01/15/24 Unknown History metformin 500 mg tablet 500 mg PO Q12H 01/15/24 01/15/24 Unknown History rfqfeckt-pg-urizy 300 mcg-K 60 See Rx Instructions .Route .COMPLEX 01/15/24 01/15/24 Unknown History mcg-lycop 600 mcg-lutein 300 mcg tablet (Centrum Silver Men) olmesartan 40 mg tablet 40 mg PO DAILY 01/15/24 01/15/24 Unknown History omega 0-aec-mfn-fish oil 1,200 mg 1,200 cap PO TID 01/15/24 01/15/24 Unknown History (144 mg-216 mg) capsule (Fish Oil) saw palmetto 450 mg capsule 450 mg PO Q12H 01/15/24 01/15/24 Unknown History tamsulosin 0.4 mg capsule 0.4 mg PO Q12H 01/15/24 01/15/24 Unknown History Allergies Allergy/AdvReac Type Severity Reaction Status Date / Time No Known Allergies Allergy Verified 10/09/24 11:55 Review of Systems Review of Systems: All systems reviewed & are unremarkable except as noted in HPI and below PMFSH Social History Social History Smoking status: Never smoker Alcohol intake: never Substance use: never Do You Feel Safe in your Home?: Yes Lack of Transportation: No Lack of Food: Never True Current Housing: I Have Housing Concerned About Future Housing: No Difficulty Paying Gas/Electric Bills: No Difficulty Paying for Meds: No Currently Unemployed: No Education: Master's Degree or Higher Difficulty w/ Childcare or Family Care: No Spiritual care concerns: No Exam Narrative: APPEARANCE: Well appearing, no pain, no distress, well-nourished. HEAD: normocephalic, atraumatic. EYES: PERRLA/EOMI, conjunctivae clear. NOSE: Normal no drainage EARS:TMS clear with good light reflex. THROAT: Pharynx clear, no exudate. NECK: Supple. No adenopathy, no masses. RESPIRATORY: Airway patent, respirations nonlabored. Clear to auscultation bilaterally, no rales, rhonchi, wheezing. CARDIOVASCULAR: Regular rate and rhythm without murmurs rubs or gallops. ABDOMINAL: Soft, nontender, nondistended, normal bowel sounds MUSCULOSKELETAL: Moves all extremities. Strength/ROM intact, No edema, No calf tenderness. NEURO: Alert. Cranial nerves II through XII intact. Good gait. Good coordination SKIN: Warm, dry. Normal Color Course Vital Signs Vital signs: Vital Signs Temperature 98.6 F 10/09/24 11:59 Pulse Rate 75 10/09/24 11:59 Respiratory Rate 16 10/09/24 11:59 Blood Pressure 167/59 H 10/09/24 11:59 Pulse Oximetry 98 10/09/24 11:59 Temperature 97.6 F 10/09/24 15:00 Pulse Rate 74 10/09/24 15:00 Respiratory Rate 16 10/09/24 15:00 Blood Pressure 140/68 10/09/24 15:00 Pulse Oximetry 100 10/09/24 15:00 Medical Decision Making [facility] Narrative Medical decision making narrative: 89-year-old male presents emergency department for evaluation for urinary symptoms. Bladder scan showed only 64 mL retained urine. Patient is afebrile with no leukocytosis and hemoglobin of 12.2. No acute abnormalities on his CMP other than elevated blood sugar of 285 with normal anion gap UA was positive for protein glucose and blood but this was noted to be a slightly traumatic catheterization per nursing. CT scan was ordered due to the hematuria. CT scan showed Nonobstructing left nephrolithiasis with interval passage of 2 of the 3 prior renal stones. The left ureter slightly larger in diameter and the right with some periureteral stranding which could be related to recent stone passage versus ascending urinary tract infection. Correlate with urinalysis. Differential Diagnosis Differential Diagnosis: Urinary retention, urinary tract infection, ureteral calculi, hematuria, traumatic catheterization, COVID, RSV, influenza Vital Signs Vital Signs: Vital Signs Temperature 98.6 F 10/09/24 11:59 Pulse Rate 75 10/09/24 11:59 Respiratory Rate 16 10/09/24 11:59 Blood Pressure 167/59 H 10/09/24 11:59 Pulse Oximetry 98 10/09/24 11:59 Temperature 97.6 F 10/09/24 15:00 Pulse Rate 74 10/09/24 15:00 Respiratory Rate 16 10/09/24 15:00 Blood Pressure 140/68 10/09/24 15:00 Pulse Oximetry 100 10/09/24 15:00 Lab Data Lab results reviewed: Yes I reviewed the patient's lab results. 10/09/24 12:59 10/09/24 12:59 Labs: Lab Results 10/09/24 10/09/24 Range/Units 12:59 13:04 WBC 5.4 (4.5-10.0) K/mm3 RBC 3.62 L (4.6-6.20) M/mm3 Hgb 12.2 L (14.0-18.0) g/dL Hct 36.3 L (42.0-52.0) % MCV 100.3 H (80-100) fl MCH 33.7 (26-34) pg MCHC 33.6 (32-36) g/dl RDW 12.6 (11.5-14.5) % Plt Count 196 (150-375) k/mm3 MPV 9.2 (7.4-10.4) fl Immature Gran % (Auto) 0.2 (0-0.5) % Neut % (Auto) 52.5 (45.5-73.1) % Lymph % (Auto) 34.1 (18.3-44.2) % [place] % (Auto) 10.3 H (2.6-8.5) % Eos % (Auto) 2.2 (0-4.4) % Baso % (Auto) 0.7 (0.2-1.2) % Lymph # (Auto) 1.83 (0.9-3.2) K/mm3 [place] # (Auto) 0.6 (0.1-0.6) K/mm3 Eos # (Auto) 0.1 (0-0.3) K/mm3 Baso # (Auto) 0.0 (0.0-0.1) K/mm3 Abs Immat Gran (auto) 0.01 (0.00-0.031) K/mm3 Absolute Neuts (auto) 2.8 (1.3-6.7) K/mm3 Absolute Nucleated RBC 0.000 (0.0-0.012) K/mm3 Nucleated RBC % 0.0 (0.0-0.2) % Sodium 137 (137-145) mmol/L Potassium 4.3 (3.4-5.0) mmol/L Chloride 102 (98-107) mmol/L Carbon Dioxide 28 (22-30) mmol/L Anion Gap 7 (4-12) mmol/L BUN 16 (9-20) mg/dL Creatinine 1.17 (0.7-1.3) mg/dL Estim Creat Clear Calc 37 ml/min Estimated GFR 59 (59 - ) Glucose 285 H (65-110) mg/dL Calcium 8.8 (8.4-10.2) mg/dL Total Bilirubin 0.5 (0.2-1.3) mg/dL AST 27 (17-59) U/L ALT 29 (6-50) U/L Alkaline Phosphatase 66 (38-126) U/L Total Protein 6.0 L (6.3-8.2) g/dL Albumin 3.6 (3.5-5.1) g/dL Urine Color Yellow (Yellow) Urine Appearance Clear (Clear) Urine pH 5.5 (5.0-9.0) Ur Specific [place] 1.026 (1.001-1.035) Urine Protein 1+ H (Negative) mg/dL Urine Glucose (UA) 3+ H (Negative) mg/dL Urine Ketones Negative (Negative) mg/dL Ur Blood (Man) 3+ H (Negative) Urine Nitrate Negative (Negative) Urine Bilirubin Negative (Negative) Urine Urobilinogen 0.2 (<2.0) mg/dL Leukocyte Esterase Rfl Negative (Negative) DEREK/UL Urine RBC >100 H (0-2) /hpf Urine WBC 0-5 (0-3) /hpf Ur Squamous Epith Cells None seen (Few) /hpf Urine Bacteria None seen /hpf Urine Casts 0-2 Discharge Plan Discharge Clinical Impression: Kidney stone, Hematuria Patient Disposition: Home Condition: Stable Instructions: Antibiotic Form, Kidney Stones (ED) Additional Instructions: Tylenol for pain control. Drink plenty of fluids. CT scan shows that you have passed some kidney stones. Have close follow-up with Urology. If you have any worsening symptoms then please call or return to the emergency. Patient Language: Vincentian Prescriptions: No Action atorvastatin 80 mg tablet 80 mg PO HS finasteride 5 mg tablet 5 mg PO DAILY metformin 500 mg tablet 500 mg PO Q12H carvedilol 6.25 mg tablet 6.25 mg PO Q12H clopidogrel 75 mg tablet 75 mg PO DAILY cyanocobalamin (vitamin B-12) 500 mcg Tablet See Rx Instructions .ROUTE .COMPLEX Rx Instructions: 500mg tablet every Saturday, Saturday, Saturday tamsulosin 0.4 mg capsule 0.4 mg PO Q12H furosemide 20 mg tablet 20 mg PO DAILY olmesartan 40 mg tablet 40 mg PO DAILY saw palmetto 450 mg Capsule 450 mg PO Q12H omega 8-rsf-gqv-fish oil [Fish Oil] 1,200 (144-216) mg Capsule 1,200 cap PO TID Centrum Silver Men [id number] mcg Tablet See Rx Instructions .ROUTE .COMPLEX Rx Instructions: 1 tablet once daily aspirin 81 mg Capsule 81 mg PO DAILY Follow-up/Referrals: Michael Martinez MD [Physician] - Harms,Matthias Dunn M.D. [Primary Care Provider] -
[2024-10-09 13:00] VITALS: BP 140/80; PULSE 74; RESP 16; TEMP 36.4; O2SAT 100
[2024-10-09 13:09] LABS: Basophils Percent Auto 0.7 % (0.2-1.2); Eosinophils Absolute Auto 0.1 K/mm3 (0-0.3); Eosinophils Percent Auto 2.2 % (0-4.4); Hematocrit 36.3 % (42.0-52.0); Hemoglobin 12.2 g/dL (14.0-18.0); Immature Granulocyte Absolute 0.01 K/mm3 (0.00-0.031); Immature Granulocyte Percent A 0.2 % (0-0.5); Lymphocytes Absolute Auto 1.83 K/mm3 (0.9-3.2); Lymphocytes Percent Auto 34.1 % (18.3-44.2); Mean Corpuscular HGB Conc 33.6 g/dl (32-36); Mean Corpuscular Hemoglobin 33.7 pg (26-34); Mean Corpuscular Volume 100.3 fl (80-100); Mean Platelet Volume 9.2 fl (7.4-10.4); Monocytes Absolute Auto 0.6 K/mm3 (0.1-0.6); Monocytes Percent Auto 10.3 % (2.6-8.5); Neutrophils Absolute Auto 2.8 K/mm3 (1.3-6.7); Neutrophils Percent Auto 52.5 % (45.5-73.1); Platelet Count Result 196 k/mm3 (150-375); Red Blood Count 3.62 M/mm3 (4.6-6.20); Red Cell Distribution Width 12.6 % (11.5-14.5); White Blood Count 5.4 K/mm3 (4.5-10.0)
[2024-10-09 13:15] LABS: Add Urine Microscopic? YES; Appearance Urine Clear (Clear); Bacteria Urine None Seen /hpf; Bilirubin Urine Negative (Negative); Blood Urine 3+ (Negative); Color Urine Yellow (Yellow); Glucose Urine UA 3+ mg/dL (Negative); Ketones Urine Negative (Negative); Leukocyte Esterase Ur Negative LEU/UL (Negative); Nitrate Urine Negative (Negative); Non Pathogenic Casts 0-2; Protein Urine 1+ mg/dL (Negative); RBC Urine >100 /hpf (0-2); Specific Grav Ur 1.026 (1.001-1.035); Squamous Epithelial Cell Urine None Seen /hpf (Few); Urobilinogen Urine 0.2 mg/dL (<2.0); WBC Urine 0-5 /hpf (0-3); pH Urine 5.5 (5.0-9.0)
[2024-10-09 13:24] LABS: Alanine Aminotransferase 29 U/L (6-50); Albumin Level 3.6 g/dL (3.5-5.1); Alkaline Phosphatase 66 U/L (38-126); Anion Gap 7 mmol/L (4-12); Aspartate Amino Transferase 27 U/L (17-59); Bilirubin,Total 0.5 mg/dL (0.2-1.3); Blood Urea Nitrogen 16 mg/dL (9-20); Calcium 8.8 mg/dL (8.4-10.2); Carbon Dioxide 28 mmol/L (22-30); Chloride 102 mmol/L (98-107); Estimated CRCL calculation 37 ml/min; Estimated Glomerular Filt Rate 59; Glucose 285 mg/dL (65-110); Potassium 4.3 mmol/L (3.4-5.0); Sodium 137 mmol/L (137-145)
[2024-10-09 14:00] VITALS: BP 138/80; PULSE 74; RESP 16; TEMP 36.6; O2SAT 98
[2024-10-09 15:00] VITALS: BP 140/68; PULSE 74; RESP 16; TEMP 36.4; O2SAT 100
--- OUTSIDE RECORDS SUMMARY | 2024-10-10 12:59 | XMS_ITS | Encounter Summary ---
Author Organization [facility] Address [address] [place] [address] Phone Care Team Providers Care Medical Service Technician Name Role Phone David Sheikh MD Primary Care Provider [phone] Matthias Parker MD Primary Care Provider [phone] [place] Steve [facility] Unavailable [phone] Encounter Details Date Type Department Care Team (Late st Contact Info) Description 09/27/2017 Orders Only [facility] ProviderNeetu MD [address] [place] [id number] Social History Tobacco Use Types Packs/Day Years Used Date Smoking Tobacco: Never Alcohol Use Standard Drinks/Week Comments Yes 0 (1 standard drink = 0.6 oz pur e alcohol) Sex and Gender Information Value Date Recorded Sex Assigned at Not on file Legal Sex Male 12:02 PM [employer]ING [employer]PER[employer] Gender Identity Male 10/15/2020 8:47 PM CDT [...] documented as of this encounter Care Teams Medical Service Technician Relationship Specialty Start Date End Date David Sheikh MD PCP - General 09/07/16 11/13/21 Matthias Parker MD [address] [place] [address] PCP - General Family Medicine 11/14/21 [place] Steve, [address] [place] [address] Pharmacist Pharmacy 06/25/23 07/17/23 documented as of this encounter
--- OUTSIDE RECORDS SUMMARY | 2024-10-10 12:59 | XMS_ITS | Referral Summary ---
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; Pacemaker 09/10/2024 Telephone [facility] [address] [phone] Matthias Parker MD 08/04/2024 Telephone [facility] [address] [phone] Matthias Parker MD 07/22/2024 Telephone [facility] [address] [phone] Matthias Parker MD Additional Services Or Orders 07/21/2024 Telephone [facility] [address] [place] [address] Kseina Power RN 07/21/2024 Telephone [facility] [address] [phone] Matthias Parker MD Medical Question/Miscellaneo us 07/21/2024 11:15 AM RETAIL POS SPECIALIST Office Visit [facility] at [address] [address] Matthias Parker MD Gait instability (Primary Dx); Weakness; Thrush from Last 3 Months Allergies Active Allergy Reactions Criticality Noted Date Comments Amoxicillin-Pot Clavulanate Rash Medium 06/14/19 23 Ceftriaxone Rash Medium 05/21/2022 Medications cyanocobalamin (Vitamin B-12) 2,500 mcg tablet, sublingualIndicati ons:Prevention of Vitamin B12 Deficiency Take 1 tablet Mondays and Wednesdays and Fridays only 40 tablet 3 01/06/20 21 Active omega-3 fatty acids/fish oil (FISH OIL [facility] 3-6-9 ORAL) Take by mouth Acti ve saw palmetto 450 mg capsule Take 450 mg by mouth daily Active carvediloL (COREG) 6.25 mg tabletIndications: 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 (HCC) TAKE 1 TABLET(6.25 MG) BY MOUTH TWICE DAILY 180 tablet 3 03/06/20 24 Active olmesartan (BENICAR) 40 mg tabletIndications: 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 (HCC) TAKE 1 TABLET(40 MG) BY MOUTH DAILY 90 tablet 3 03/10/20 24 Active atorvastatin (LIPITOR) 80 mg tabletIndications: Mixed hyperlipidemia Take 1 tablet (80 mg total) by mouth daily 100 tablet 3 05/15/20 24 Active clopidogreL (PLAVIX) 75 mg tabletIndications: History of coronary artery stent placement Take 1 tablet (75 mg total) by mouth daily 100 tablet 3 05/15/20 24 Active aspirin 81 mg enteric coated tablet Take 1 tablet (81 mg total) by mouth daily 90 tablet 3 05/15/20 Active saw palmetto 450 mg capsule Take 450 mg by mouth daily 90 capsule 1 05/15/20 Active omega 4-pbd-fzb-fish oil 1,200 (144-216) mg capsule Take 1,200 mg by mouth daily 90 capsule 1 05/15/20 Active cyanocobalamin (Vitamin B-12) 2,500 mcg tablet, sublingualIndicati ons:Prevention of Vitamin B12 Deficiency Take 1 tablet (2,500 mcg total) by mouth daily 90 tablet 1 05/15/20 Active Additional Information Patient not taking.Reported on 07/21/2024 multivitamin tabletIndications: Vitamin Deficiency Prevention Take 1 tablet by mouth daily 90 tablet 1 05/15/20 Active pen needle, diabetic 31 gauge x 10/23 needleIndications: Type 2 diabetes mellitus with hyperglycemia, without long-term current use of insulin ([facility]) Use to inject once nightly 100 each 11 05/20/20 Active finasteride (PROSCAR) 5 mg tabletIndications: Benign prostatic hyperplasia with urinary frequency TAKE 1 TABLET(5 MG) BY MOUTH DAILY 90 tablet 1 05/25/20 24 Active Nystop powder 06/30/19 25 Active nystatin 100,000 unit/mL suspensionIndicati ons:oral candidiasis Take 5 mL (500,000 Units total) by mouth 4 (four) times a day 473 mL 07/21/19 25 Active tamsulosin (FLOMAX) 0.4 mg extended release capsule TAKE 1 CAPSULE BY MOUTH TWICE A DAY 180 capsule 09/08/19 25 Active metFORMIN (GLUCOPHAGE) 500 mg tabletIndications: Type 2 diabetes mellitus without complication, without long-term current use of insulin ([facility]) TAKE ONE TABLET BY MOUTH THREE TIMES A DAY BEFORE MEALS 270 tablet 1 09/08/19 25 Active insulin glargine (LANTUS) 100 unit/mL (3 mL) pen for injectionIndicatio ns:Type 2 diabetes mellitus with hyperglycemia, without long-term current use of insulin ([facility]) Inject 14 Units under the skin daily 9 mL 1 09/11/19 25 Active Active Problems Problem Noted Date Diagnosed Date Gait instability 07/21/2024 Assessment & Plan (07/21/2024 11:54 AM RETAIL POS SPECIALIST): Ambulating iwht walkder. No focal neurological s/s. WIll marcella response. Weakness 07/21/2024 Assessment & Plan (07/21/2024 11:54 AM RETAIL POS SPECIALIST): Joaquim andrea response. Reivewed red flag s/s. Thrush 07/21/2024 Assessment & Plan (07/21/2024 11:55 AM RETAIL POS SPECIALIST): Course of nystatin swish and swallwo and iwll folwlor esponse. Acute right-sided low back pain with right-sided sciatica 07/09/2024 Assessment & Plan (07/09/2024 9:37 AM RETAIL POS SPECIALIST): No injury; pain has been waxing and waning for the past 1 week. Pain does not improve with Tylenol. When pain is present and is located right lower back and radiates down posterior right thigh. No weakness or numbness. No bowel or bladder disturbance. Unable to take NSAIDs secondary to anticoagulant use. Prescribed low-dose prednisone, discussed impact on increasing blood sugars. Encouraged gentle stretching and kfetq-zg-lhenmg exercises. Reviewed red flag signs and symptoms warranting immediate follow-up. Syncope and collapse 04/01/2024 Overview (04/08/2024): Syncope [...] on 17 August 2024. Sick sinus syndrome 04/01/2024 Assessment & Plan (05/19/2024 2:14 PM RETAIL POS SPECIALIST): S/p pacemaker placement. NO further syncopal episodes. [...] & Plan (03/10/2024 3:30 PM CDT): Wearing electronic device monitor. Following closely with Cardiology. Scheduled for pacemaker placement 03/19/24. 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 Controlled type 2 diabetes m jose alberto with diabetic polyneuropathy, without long-term current use of insulin 01/27/2024 Hypertension associated with diabetes 09/16/2023 Assessment & Plan (05/19/2024 2:13 PM RETAIL POS SPECIALIST): Stable on olmesartan. As above. Subacute cough 03/01/2023 Assessment & Plan (03/01/2023 9:35 AM CDT): No abnormal findings on exam. Patient denies feeling unwell. No fevers, shortness of breath dizziness, fatigue or changes in appetite. Lungs clear on exam, vital signs within normal limits. Recommended continued symptomatic treatment, can try a nonsedating fmcv-wfx-airarst antihistamine to help with postnasal drainage contributing to cough. Encouraged patient and his to call office in 1 week to give an update of symptoms. Will call sooner with any new or worsening symptoms. Will plan to order CXR. Rash as adverse effect of penicillin 06/14/2022 Assessment & Plan (06/14/2022 2:18 PM RETAIL POS SPECIALIST): Discontinue augmentin. No facial swelling, sob or voice changes. Rash localized to patients face, non itching. Instructed to take benadryl for drug reaction rash. Reviewed signs of serious allergic reaction requiring immediate ER evaluation. Dental infection 06/14/2022 Assessment & Plan (06/14/2022 2:17 PM RETAIL POS SPECIALIST): Discontinue augmentin. Prescribed doxycyline for dental infection. [...] as needed. 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 Denies any chest pain or shortness and breath. Blood pressure is well controlled. Assessment & Plan (05/19/2024 2:13 PM RETAIL POS SPECIALIST): Seconasdry prevneiton. WIll montior response. Assessment & [...] 04/02/2017 Assessment & Plan (05/19/2024 2:14 PM RETAIL POS SPECIALIST): Dual agnet therapy with finasteride and tamsulosin. MOntior for orthostasis. Assessment & Plan (05/26/2019 10:58 AM RETAIL POS SPECIALIST): Stable with acute on chronic complaint of urinary frequency likely D/T infection. Cnt. Flomax once daily as prior prescribed. Last PSA testing under [facility] at 1.3. Hypertensive heart disease w ith chronic diastolic congestive heart failure 10/24/2013 Overview (09/12/2016): HYPERTENSION NOS Assessment & Plan (05/19/2024 2:12 PM RETAIL POS SPECIALIST): Reivewed BP control and will montior ersponse. NO chest pains/pheadaches. No sig orthostasis. Reivewed hydration. Assessment & Plan (03/10/2024 3:30 PM CDT): Stable; blood pressure is well controlled. No acute changes in weight. Assessment & Plan (05/13/2020 8:30 AM RETAIL POS SPECIALIST): Recommend DASH diet, heart-healthy lifestyle, exercise. Discussed [...] CMP NT ST UNCNTR Assessment & Plan (07/09/2024 9:36 AM RETAIL POS SPECIALIST): Lab Results Component Value Date HGBA1C 8.7 07/09/2024 HGBA1C 9.7 (H) 03/16/2024 HGBA1C 8.1 (H) 04/18/2023 Continue metformin. Instructed to increase Lantus from 10 units to 13 units nightly. Aware that prednisone will increase blood sugars and encouraged to monitor closely. Assessment & Plan (05/19/2024 2:13 PM RETAIL POS SPECIALIST): Reviwed glycemic control and iwll montior response. Encourage healthy food chocices and regular insulin usage. Assessment & Plan (03/01/2023 9:33 AM CDT): Stable, continue current regimen. Labs ordered today for patient to repeat a few days prior to scheduled office visit. Continues metformin 500 mg t.i.d. Assessment & Plan (05/26/2019 10:57 AM RETAIL POS SPECIALIST): Stable with last hemoglobin A1c at 7.2%. [...] 05/28/2019 07/16/2019 Urinary symptom or sign 05/26/2019 02/0 11/2019 Assessment & Plan (05/26/2019 10:57 AM RETAIL POS SPECIALIST): Acute UTI vs prostatitis likely cause. Initiating [...] known physiological condition 07/16/2019 Hypervolemia 07/16/2019 Immunizations Immunization Administration Dates Next Due COVID-19 mRNA ([employer]Contact [employer]) 0.3 m L (30 mcg) vaccine (12 years and up) 04/10/2024 Influenza, Quadrivalent, Hig h Dose, Preservative Free, Intrr 03/30/2021 Influenza, Trivalent, High D ose, Split, Preservative Free, Intramuscular 03/02/2019,03/13/2018,03/13/2017,02/27,03/09/2015,03/29/2014 Influenza, Trivalent, IM (MDV) 03/18/2013,2010 Influenza, Unspecified 03/10/2024,2023(Deferred: Patient Refused),03/14/2023,03/01/2023(Deferre d: Patient Refused),03/10/2022,02/09/2021(Deferre d: Patient Refused),03/16/2020,03/02/2019 [facility] SARS-CoV-2 Monovalent Vaccination (12+ Yrs) PURPLE 03/26/2023,03/13/2021,07/07/2020,06/15 [...] points, staff should administer the PHQ-9) 0 07/09/2024 Personal Safety Answer Date Recorded Have you ever been in or are you currently in a harmful physical or emotional relationship or is someone making you feel afraid or unsafe? Denies 04/01/2024 Sex and Gender Information Value Date Recorded Sex Assigned at Not on file Legal Sex Male 12:02 PM RETAIL POS SPECIALIST Gender Identity Male 10/15/2020 8:47 PM CDT Sexual Orientation Straight 10/15/2020 8: 47 PM CDT Last Filed Vital Signs Vital Sign Reading Time Taken Comments Blood Pressure 126/72 07/21/2024 11:21 AM RETAIL POS SPECIALIST Pulse 69 07/21/2024 11:21 AM RETAIL POS SPECIALIST Temperature 36.7 C (98.1 F) 07/21/2024 11:21 AM RETAIL POS SPECIALIST Respiratory Rate 18 07/09/2024 8:20 AM RETAIL POS SPECIALIST Oxygen Saturation 98% 07/21/2024 11:21 AM RETAIL POS SPECIALIST Inhaled Oxygen Concentration - - Weight 75.8 kg (167 lb 3.2 oz) 07/21/2024 11:21 AM RETAIL POS SPECIALIST Height 172.7 cm (5' 8 ) 07/21/2024 11:21 AM RETAIL POS SPECIALIST Body Mass Index 25.42 07/21/2024 11:21 AM RETAIL POS SPECIALIST Plan of Treatment Not on file Medical Devices Implanted Type Area Batter Mixer Device Identifier Shelf Expiration Date Model / Serial / Lot [employer] Endocardial Pacing Lead Promri Zabrina T [id number] - [id number] - [id number] Implanted:Qty: 1 on 04/01/2024 by El Ogden MD at [facility] Lead [employer] 10/07/2024 [id number] / [id number] / [employer] Pacemaker Implantable Amvia Edge Dual Chamb Rate-Responsive [id number] - [id number] - [id number] Implanted:Qty: 1 on 04/01/2024 by El Ogden MD at [facility] Lead [employer] 07/10/2025 [id number] / [id number] / Med[employer]onic [employer] Tyrx Absorbable Antibacterial Envelope-Large 3.3x2.9in [id number] - [id number] Implanted:Qty: 1 on 04/01/2024 by El Ogden MD at [facility] [employer] 01/01/2025 [id number] [id number] / / [id number] [employer] Endocardial Pacing Lead Promri Solia Jt [id number] - [id number] - [id number] Implanted:Qty: 1 on 04/01/2024 by El Ogden MD at [facility] [employer] 11/07/2024 [id number] / [id number] / Procedures Procedure Name Priority Date/Time Associated Diagnosis Comments DEVICE CHECK - REMOTE Routine 09/29/2024 9:02 AM CDT Syncope and collapse 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 Pacemaker POCT HEMOGLOBIN A1C Routine 07/09/2024 9 :05 AM RETAIL POS SPECIALIST Type 2 diabetes mellitus with diabetic polyneuropathy, with long-term current use of insulin (HCC) EGFR Routine 04/02/2024 5:16 AM CDT LIPID PANEL Routine 03/16/2024 9:58 AM CDT Controlled type 2 diabetes mellitus with diabetic polyneuropathy, without long-term current use of insulin (HCC) ALBUMIN CREATININE RATIO, URINE Routine 03/16/2024 9:58 AM CDT Controlled type 2 diabetes mellitus with diabetic polyneuropathy, without long-term current use of insulin (HCC) PSA SCREEN Routine 04/18/2023 8:28 AM RETAIL POS SPECIALIST Encounter for prostate cancer screening HM DIABETES EYE EXAM Routine 01/23/2023 COLONOSCOPY Routine 05/25/2010 from Last 3 Months or Most Recently Relevant to Health Maintenance Results * DEVICE CHECK - REMOTE (09/29/2024 9:02 AM CDT) Anatomical Region Laterality Modality Other Narrative 10/01/2024 4:08 PM CDT Images from the original result were not included. 09/30/2024 [email or web address] quarterly remote device check NOTE The following shows snippets from the complete quarterly report. The complete report in its entirety is attached to this Result Text in District Service Manager Presenting EGM Last in-office check April 01 2024 Next in-office check Oct 12 2024 (marked for reschedule) Dual Chamber PPM implanted March 2024 Battery longevity = OK/95% AT/AF burden 0.0% Ap 60% RVp 2% No episodes this monitoring period Reviewed By Marybeth Argueta WOUND CARE SPECIALIST ATTESTATION I have reviewed the device interrogation report associated with this encounter in detail. I agree with the documentation recorded/scanned into the electronic medical record. Recommendations: Continue current device follow-up. Christophe Mak MD MD Review and Recommendations below (please forward an in-basket message to your MA if check requires attention) Christophe Mak MD [facility] PROCEDURES Final Result * (ABNORMAL) POCT hemoglobin A1c (07/09/2024 9:05 AM RETAIL POS SPECIALIST) Hemoglobin A1C, POC 8.7 4.0 - 5.6 % Capillary blood 07/09/2024 9 :05 AM RETAIL POS SPECIALIST Lauren Lundberg NP POINT OF CARE TEST ORDERABL ES Final Result * eGFR (04/02/2024 5:16 AM CDT) eGFR 68 >=60 mL/min/1. 73 m2 Comment: Interpretive Data Reference Interval Normal >/= 90 mL/min/1.73m2 Mildly decreased* 60 - 89 mL/min/1.73m2 Mildly to moderately decreased 45 - 59 mL/min/1.73m2 Moderately to severely decreased 30 - 44 mL/min/1.73m2 Severely decreased 15 - 29 mL/min/1.73m2 Kidney Failure < 15 mL/min/1.73m2 *Relative to young adult level Estimated glomerular [...] 5:16 AM CDT 04/02/2024 6:22 AM CDT Atul Mcguire MD LAB BLOOD ORDERABLES Final Resu lt [facility] ([place]) [facility] Department [place] [address] * (ABNORMAL) Albumin Creatinine Ratio, Urine (03/16/2024 9:58 AM CDT) Albumin Ur 75.1 mg/L Comment: Interpretive Data No reference range established. Current interpretive data was last revised 2018. Testing performed by: [address] [address] Creatinine Ur 72.3 mg/dL [facility] ([place]) Comment: Interpretive Data No reference range established. Current interpretive data was last revised 2018. Testing performed by: [facility], [address] [place] [address]., [address] Albumin Creatinine Ratio, Ur 104(H) 1 - 29 mg/g [facility] ([place]) Comment:Testing performed by : [address] [address] Urine 03/16/2024 9:58 AM CDT 03/16/2024 2:06 PM CDT us Matthias Parker MD LAB URINE ORDERABLES Luisana gale Result [facility] ([place]) [facility] Department [place] [address] * (ABNORMAL) Lipid panel (03/16/2024 9:58 AM CDT) Cholesterol 105 30 - 199 mg/dL Comment: Interpretive Data Ages < or = 19 years Acceptable: <170 mg/dL Borderline high: 170-199 mg/dL High: >or= 200 mg/dL Ages > or = 20 years Desirable: <200 mg/dL Borderline high: 200-239 mg/dL High: >or= 240 mg/dL Literature References: 1. Expert Panel on Integrated Guidelines for Cardiovascular Health and Risk Reduction in Children and Adolescents. Pediatrics 2011;128:S213 2. NCEP Expert Panel. Circulation 2004;110:227 Current Interpretive Data was last revised on 2018. Triglycerides 153(H) <=149 mg/dL [facility] ([place]) Comment: Interpretive Data Ages < or = 9 years Acceptable: <75 mg/dL Borderline high: 75-99 mg/dL High: >or= 100 mg/dL Ages 10 to 20 years Acceptable: <90 mg/dL Borderline high: 90-129 mg/dL High: >or= 130 mg/dL Ages > or = 20 years Desirable: <150 mg/dL Borderline high: 150-199 mg/dL High: 200-499 mg/dL Very high: >or= 499 mg/dL Literature References: 1. Expert Panel on Integrated Guidelines for Cardiovascular Health and Risk Reduction in Children and Adolescents. Pediatrics 2011;128:S213 2. NCEP Expert Panel. Circulation 2004;110:227 Current Interpretive Data was last revised on 2018. HDL 38(L) >=40 mg/dL [facility] ([place]) Comment: Interpretive Data Ages < or = 19 years Acceptable: >45 mg/dL Borderline low: 40-45 mg/dL Low: <40 mg/dL Ages > or = 20 years Desirable: >or= 60 mg/dL Low: <40 mg/dL Literature References: 1. Expert Panel on Integrated Guidelines for Cardiovascular Health and Risk Reduction in Children and Adolescents. Pediatrics 2011;128:S213 2. NCEP Expert Panel. Circulation 2004;110:227 Current Interpretive Data was last revised on 2018. LDL, calculated 41 <=129 mg/dL [facility] ([place]) Comment: Interpretive Data Ages < or = 19 years Acceptable: <110 mg/dL Borderline high: 110-129 mg/dL High: >or= 130 mg/dL Ages > or = 20 years Optimal: <100 mg/dL Near optimal: 100-129 mg/dL Borderline high: 130-159 mg/dL High: >160 mg/dL Calculated using the Caleb LDL-C estimating equation. This equation was implemented on 2024. Prior to this date LDL-C was estimated using the Friedewald equation. Literature References: 1. Expert Panel on Integrated Guidelines for Cardiovascular Health and Risk Reduction in Children and Adolescents. Pediatrics 2011;128:S213 2. NCEP Expert Panel. Circulation 2004;110:227 3. Caleb Mills et al. FALGUNI Cardiol. 2019October 08;5(5):540-548. doi: 10.1001/jamacardio.2020.0013 Current Interpretive Data was last revised on 2024. Non-HDL Cholesterol 67 mg/dL [facility] ([place]) Comment: Interpretive Data Ages < or = 19 years Acceptable: <120 mg/dL Borderline high: 120-144 mg/dL High: >145 mg/dL Ages > or = 20 years When triglycerides are >200 mg/dL, Non-HDL cholesterol is a secondary target of therapy with treatment goals that are 30 mg/dL greater than the LDL cholesterol target. Literature References: 1. Expert Panel on Integrated Guidelines for Cardiovascular Health and Risk Reduction in Children and Adolescents. Pediatrics 2011;128:S213 2. NCEP Expert Panel. Circulation 2004;110:227 Current Interpretive Data was last revised on 2018. Chol/HDL ratio 3 [facility] ([place]) Blood 03/16/2024 9:58 AM CDT 03/16/2024 10:19 AM CDT Matthias Parker MD LAB BLOOD ORDERABLES Luisana l Result [facility] ([place]) [facility] [place] [address] * PSA screen (04/18/2023 8:28 AM RETAIL POS SPECIALIST) PSA-Total 0.75 <=6.20 ng/mL [facility] Comment: Interpretive Data AGE SEX REFERENCE INTERVAL 0 minutes-150 years Female None 0 minutes-49 years Male None 50-59 years Male 0-3.90 60-69 years Male 0-5.40 70-79 years Male 0-6.20 80-150 years Male 0-6.20 The Norma PSA Total assay procedure was used. Results from different manufacturers or methods may not be comparable. Serial testing should be performed using the same method. Current interpretive data last revised 21. Blood 04/18/2023 8:28 AM RETAIL POS SPECIALIST 04/18/2023 3:00 PM RETAIL POS SPECIALIST Lauren Lundberg TECHNOLOGY INFUSION SPECIALIST LAB BLOOD ORDERABLES Final Result Performing Organization Address [facility] Co de Phone Number [facility] [address] [place] [address] * DIABETES EYE EXAM (01/23/2023) SCRIBED DIABETIC DILATED EYE EXAM Normal Historical Provider HEALTH MAINTENANCE Final Result * Colonoscopy (05/25/2010) Anatomical Region Laterality Modality Other Impressions 05/25/2010 Polyp Historical Provider ENDOSCOPY PROCEDURES Luisana l Result from Last 3 Months or Most Recently Relevant to Health Maintenance Insurance [employer] MEDICARE [facility] MEDIC[facility] MEDICARE Advance Directives For more information, please contact: [phone] Documents on File Type Date Recorded 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
--- OUTSIDE RECORDS SUMMARY | 2024-10-10 12:59 | XMS_ITS | Encounter Summary ---
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 states Pt has had difficulty urinating for weeks, yesterday worse, thinks urinated last night or this morning more than a few drops of urine but lower amount of urine output since yesterday, does not take in a lot of fluids, tried to get Pt to drink fluids, a little lightheaded when stands, always has back pain. denies Pt weakness or faint, injury, pain urinating, blood urine, fever. Hx HLD, HTN, CAD, Coronary stent, Pacemaker, Chronic diastolic heart failure, DMII, BPH. Go to ED/UCC or Office with PCP Approval. RN sent secure chat to PCP-if not urinating needs er evaluatoni and can follow along at [place]. Provider contacted via secure chat for ED disposition consult. Recommendation from provider:Proceedto ED. Care advice: After ED hydrate, avoid caffeine and alcohol especially four hours before bedtime, certain foods may cause bladder irritation examples given. Call back if: Difficulty urinating or low output, fever, pain, or worsen. verbalizes understanding and is agreeable with this plan. Reason for Disposition Decreased urination and drinking very little and dehydration suspected (e.g., dark urine, no urine > 12 hours, very dry mouth, very lightheaded) Protocols used: Urinary Pkmijusr-Oxyfj-EF * Telephone Encounter - Ariana Rebolledo RN - 10/09/2024 9:08 AM CDT Regarding: Trouble urinating and pain when attempting ----- Message from Coupay R sent at 10/09/2024 9:01 AM CDT ----- Symptom Based Call Chief Complaint(s): Trouble urinating and pain when attempting Duration: unknown What type of symptom(s) is the patient experiencing? Red Flag. Is the patient concerned they are experiencing a medical emergency requiring an ambulance? No Additional Comments: Patient now unable to go at all. Denied any other symptoms Does message need to be routed? Yes-Action Needed documented in this encounter Plan of Treatment Not on file documented as of this encounter Visit Diagnoses Not on filedocumented in this encounter Care Teams Batch Mixer Operator Relationship Specialty Start Date End Date Matthias Parker MD [address] [place] [address] PCP - General Family Medicine 11/14/21 documented as of this encounter
--- OUTSIDE RECORDS SUMMARY | 2024-10-10 12:59 | XMS_ITS | Clinical Summary ---
Author Organization [facility] Address [address] [place] [address] Care Team Providers Care Kosher Dietary Service Supervisor Name Role Phone Matthias Parker MD Primary Care Provider [phone] Allergies Active Allergy Reactions Criticality Noted Date [...] by mouth daily 90 tablet 3 05/15/20 24 Active saw palmetto 450 mg capsule Take 450 mg by mouth daily 90 capsule 1 05/15/20 24 Active omega 5-thc-asi-fish oil 1,200 (144-216) mg capsule Take 1,200 mg by mouth daily 90 capsule 1 05/15/20 24 Active cyanocobalamin (Vitamin B-12) 2,500 mcg tablet, sublingualIndicati ons:Prevention of Vitamin B12 Deficiency Take 1 tablet (2,500 mcg total) by mouth daily 90 tablet 1 05/15/20 24 Active Additional Information Patient not taking.Reported on 07/21/2024 multivitamin tabletIndications: Vitamin Deficiency Prevention Take 1 tablet by mouth daily 90 tablet 1 05/15/20 24 Active pen needle, diabetic 31 gauge x 10/23 needleIndications: Type 2 diabetes mellitus with hyperglycemia, without long-term current use of insulin ([facility]) Use to inject once nightly 100 each 11 05/20/20 24 Active finasteride (PROSCAR) 5 mg tabletIndications: Benign [...] complication, without long-term current use of insulin ([facility]) TAKE ONE TABLET BY MOUTH THREE TIMES A DAY BEFORE MEALS 270 tablet 1 09/08/19 25 Active insulin glargine (LANTUS) 100 unit/mL (3 mL) pen for injectionIndicatio ns:Type 2 diabetes mellitus with hyperglycemia, without long-term current use of insulin (HCC) Inject 14 Units under the skin daily 9 mL 1 09/11/19 25 Active Active Problems Problem Noted Date Diagnosed Date Gait instability 07/21/2024 Assessment & Plan (07/21/2024 11:54 AM ASSEMBLER LAY UPS): Ambulating iwht walkder. No focal neurological s/s. WIll marcella response. Weakness 07/21/2024 Assessment & Plan (07/21/2024 11:54 AM ASSEMBLER LAY UPS): Joaquim anguianoiro response. Reivewed red flag s/s. Thrush 07/21/2024 Assessment & Plan (07/21/2024 11:55 AM ASSEMBLER LAY UPS): Course of nystatin swish and swallwo and iwll folwlor esponse. Acute right-sided low back pain with right-sided sciatica 07/09/2024 Assessment & Plan (07/09/2024 9:37 AM ASSEMBLER LAY UPS): No injury; pain has been waxing and [...] increasing blood sugars. Encouraged gentle stretching and epkpq-ye-rtupfr exercises. Reviewed red flag signs and symptoms [...] 04/01/2024 Assessment & Plan (05/19/2024 2:14 PM ASSEMBLER LAY UPS): S/p pacemaker placement. NO further syncopal episodes. [...] & Plan (03/10/2024 3:30 PM CDT): Wearing athletic monitor. Following closely with Cardiology. Scheduled for pacemaker placement 03/19/24. 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 Controlled type 2 diabetes m ellitus with diabetic polyneuropathy, without long-term current use of insulin 01/27/2024 Hypertension associated with diabetes 09/16/2023 Assessment & Plan (05/19/2024 2:13 PM ASSEMBLER LAY UPS): Stable on olmesartan. As above. Subacute cough 03/01/2023 Assessment & Plan (03/01/2023 9:35 AM CDT): No abnormal findings on exam. Patient denies feeling unwell. No fevers, shortness of breath dizziness, fatigue or changes in appetite. Lungs clear on exam, vital signs within normal limits. Recommended continued symptomatic treatment, can try a nonsedating dwec-jla-lpvdnik antihistamine to help with postnasal drainage contributing to cough. Encouraged patient and his to call office in 1 week to give an update of symptoms. Will call sooner with any new or worsening symptoms. Will plan to order CXR. Rash as adverse effect of penicillin 06/14/2022 Assessment & Plan (06/14/2022 2:18 PM ASSEMBLER LAY UPS): Discontinue augmentin. No facial swelling, sob or voice changes. Rash localized to patients face, non itching. Instructed to take benadryl for drug reaction rash. Reviewed signs of serious allergic reaction requiring immediate ER evaluation. Dental infection 06/14/2022 Assessment & Plan (06/14/2022 2:17 PM ASSEMBLER LAY UPS): Discontinue augmentin. Prescribed doxycyline for dental infection. [...] as needed. Coronary artery disease invo lving [place] coronary artery of [place] heart without angina pectoris 04/02/2017 Assessment & Plan (07/09/2024 9:37 AM ASSEMBLER LAY UPS): Continue secondary prevention with Plavix, aspirin and high-intensity statin. Denies any chest pain or shortness and breath. Blood pressure is well controlled. Assessment & Plan (05/19/2024 2:13 PM ASSEMBLER LAY UPS): Seconasdry prevneiton. WIll montior response. Assessment & [...] 04/02/2017 Assessment & Plan (05/19/2024 2:14 PM ASSEMBLER LAY UPS): Dual agnet therapy with finasteride and tamsulosin. MOntior for orthostasis. Assessment & Plan (05/26/2019 10:58 AM ASSEMBLER LAY UPS): Stable with acute on chronic complaint of urinary frequency likely D/T infection. Cnt. Flomax once daily as prior prescribed. Last PSA testing under [facility] at 1.3. Hypertensive heart disease w ith chronic diastolic congestive heart failure 10/24/2013 Overview (09/12/2016): HYPERTENSION NOS Assessment & Plan (05/19/2024 2:12 PM ASSEMBLER LAY UPS): Reivewed BP control and will montior ersponse. NO chest pains/pheadaches. No sig orthostasis. Reivewed hydration. Assessment & Plan (03/10/2024 3:30 PM CDT): Stable; blood pressure is well controlled. No acute changes in weight. Assessment & Plan (05/13/2020 8:30 AM ASSEMBLER LAY UPS): Recommend DASH diet, heart-healthy lifestyle, exercise. Discussed [...] UNCNTR Assessment & Plan (07/09/2024 9:36 AM ASSEMBLER LAY UPS): Lab Results Component Value Date HGBA1C 8.7 07/09/2024 HGBA1C 9.7 (H) 03/16/2024 HGBA1C 8.1 (H) 04/18/2023 Continue metformin. Instructed to increase Lantus from 10 units to 13 units nightly. Aware that prednisone will increase blood sugars and encouraged to monitor closely. Assessment & Plan (05/19/2024 2:13 PM ASSEMBLER LAY UPS): Reviwed glycemic control and iwll montior response. Encourage healthy food chocices and regular insulin usage. Assessment & Plan (03/01/2023 9:33 AM CDT): Stable, continue current regimen. Labs ordered today for patient to repeat a few days prior to scheduled office visit. Continues metformin 500 mg t.i.d. Assessment & Plan (05/26/2019 10:57 AM ASSEMBLER LAY UPS): Stable with last hemoglobin A1c at 7.2%. [...] 11/2019 Assessment & Plan (05/26/2019 10:57 AM ASSEMBLER LAY UPS): Acute UTI vs prostatitis likely cause. Initiating [...] Team Description 10/09/2024 Nurse Triage [facility] [address] [address] Matthias Parker MD 09/30/2024 2:15 PM CDT Ancillary Procedure [employer] Station Attendant [address] [place] [phone] Syncope and collapse; Coronary artery disease involving [place] coronary artery of [place] heart without angina pectoris; Pacemaker 09/10/2024 Telephone [facility] [address] [address] Matthias Parker MD 08/04/2024 Telephone [facility] [address] [address] Matthias Parker MD 07/22/2024 Telephone [facility] [address] [address] Matthias Parker MD Additional Services Or Orders 07/21/2024 11:15 AM ASSEMBLER LAY UPS Office Visit [facility] [place] [address] [place] [address] Matthias Parker MD Gait instability (Primary Dx); Weakness; Thrush 07/21/2024 Telephone [facility] [address] [facility] [address] [place] [address] Ksenia Power RN 07/21/2024 Telephone [facility] [place] [address] [place] [address] Matthias Parker MD Medical Question/Miscellaneo us from Last 3 Months Immunizations Immunization Administration Dates Next Due COVID-19 mRNA ([employer]) 0.3 m L (30 mcg) vaccine (12 years and up) 04/10/2024 Influenza, Quadrivalent, Hig h Dose, Preservative Free, Intrr 03/30/2021 Influenza, Trivalent, High D ose, Split, Preservative Free, Intramuscular 03/02/2019,03/13/2018,03/13/2017,02/27,03/09/2015,03/29/2014 Influenza, Trivalent, IM (MDV) 03/18/2013,2010 Influenza, Unspecified 03/10/2024,2023(Deferred: Patient Refused),03/14/2023,03/01/2023(Deferre d: Patient Refused),03/10/2022,02/09/2021(Deferre d: Patient Refused),03/16/2020,03/02/2019 Pfizer SARS-CoV-2 Monovalent Vaccination (12+ Yrs) PURPLE 03/26/2023,03/13/2021,07/07/2020,06/15 [...] Urinary incontinence Hypercholesteremia CHF (congestive heart failure) (HCC) Family History Medical History Relation Name [...] on file Legal Sex Male 12:02 PM ASSEMBLER LAY UPS Gender Identity Male 10/15/2020 8:47 PM CDT Sexual Orientation Straight 10/15/2020 8: 47 PM CDT Obstetrics History Last Filed Vital Signs Vital Sign Reading Time Taken Comments Blood Pressure 126/72 07/21/2024 11:21 AM ASSEMBLER LAY UPS Pulse 69 07/21/2024 11:21 AM ASSEMBLER LAY UPS Temperature 36.7 C (98.1 F) 07/21/2024 11:21 AM ASSEMBLER LAY UPS Respiratory Rate 18 07/09/2024 8:20 AM ASSEMBLER LAY UPS Oxygen Saturation 98% 07/21/2024 11:21 AM ASSEMBLER LAY UPS Inhaled Oxygen Concentration - - Weight 75.8 kg (167 lb 3.2 oz) 07/21/2024 11:21 AM ASSEMBLER LAY UPS Height 172.7 cm (5' 8 ) 07/21/2024 11:21 AM ASSEMBLER LAY UPS Body Mass Index 25.42 07/21/2024 11:21 AM ASSEMBLER LAY UPS Plan of Treatment Health Maintenance Due Date Last Done Comments Hepatitis B Screening 1953 Well Visit 65+ 05/23/2022 05/23/2021, 02/2020, 03/18/2019, Additional history exists Foot Exam 05/07/2023 05/07/2022, 02/2021, 05/26/2019, Additional history exists Dilated Eye Exam 01/24/2024 01/23/2023, 05/2022, 12/08/2020, Additional history exists Prostate Cancer Screening-PSA 04/18/2024, 11/17/2021, 09/27/2020, Additional history exists Covid-19 Vaccine (2023-2 5 season) 2024 04/10/2024, 03/26/2023, 03/22/2022, Additional history exists Hemoglobin A1C 01/06/2025 07/09/2024, 12/2023, 04/18/2023, Additional history exists Albumin Creatinine Ratio, Urine 03/16/2025 03/16/2024, 09/21/2022, 11/17/2021 Lipid Panel 03/16/2025 03/16/2024, 02/2023, 09/21/2022, Additional history exists eGFR 04/02/2025 04/02/2024, 02/2024, 03/16/2024, Additional history exists Depression Screening 07/09/2025 07/09/2024, 05/19/2024, 03/10/2024, Additional history exists Fall Risk Assessment 07/21/2025 07/21/2024, 07/09/2024, 05/19/2024, Additional history exists DTaP/Tdap/Td Vaccine (2 - [...] Completed 03/10/2024, , 03/10/2022, Additional history exists Medical Devices Implanted Type Area Waste Water Worker Device Identifier Shelf Expiration Date Model / Serial / Lot [employer] Endocardial Pacing Lead Promri Solia T [id number] - [id number] - [id number] Implanted:Qty: 1 on 04/01/2024 by El Ogden MD at [facility] Lead [employer] 10/07/2024 [id number] / [id number] / [employer] Pacemaker Implantable Amvia Edge Dual Chamb Rate-Responsive [id number] - [id number] - [id number] Implanted:Qty: 1 on 04/01/2024 by El Ogden MD at [facility] Lead [employer] 07/10/2025 [id number] / [id number] / Med[employer]onic [employer] Tyrx Absorbable Antibacterial Envelope-Large 3.3x2.9in [id number] - [id number] Implanted:Qty: 1 on 04/01/2024 by El Ogden MD at [facility] [employer] 01/01/2025 CMRM [id number] / / [id number] [employer] Endocardial Pacing Lead Promri Solia Jt 45 [id number] - [id number] - [id number] Implanted:Qty: 1 on 04/01/2024 by El Ogden MD at [facility] [employer] 11/07/2024 [id number] / [id number] / Procedures Procedure Name Priority Date/Time Associated Diagnosis Comments DEVICE CHECK - REMOTE Routine 09/29/2024 9:02 AM CDT Syncope and collapse Coronary artery disease involving [place] coronary artery of [place] heart without angina pectoris Pacemaker POCT HEMOGLOBIN A1C Routine 07/09/2024 9 :05 AM ASSEMBLER LAY UPS Type 2 diabetes mellitus with diabetic polyneuropathy, [...] (HCC) PSA SCREEN Routine 04/18/2023 8:28 AM ASSEMBLER LAY UPS Encounter for prostate cancer screening HM DIABETES EYE EXAM Routine 01/23/2023 COLONOSCOPY Routine 05/25/2010 from Last 3 Months or Most Recently Relevant to Health Maintenance Results * DEVICE CHECK - REMOTE (09/29/2024 9:02 AM CDT) Anatomical Region Laterality Modality Other Narrative 10/01/2024 4:08 PM CDT Images from the original result were not included. 09/30/2024 [employer] quarterly remote device check NOTE The following shows snippets from the complete quarterly report. The complete report in its entirety is attached to this Result Text in Biostatistics Manager Presenting EGM Last in-office check April 01 2024 Next in-office check Oct 12 2024 (marked for reschedule) Dual Chamber PPM implanted March 2024 Battery longevity = OK/95% AT/AF burden 0.0% Ap 60% RVp 2% No episodes this monitoring period Reviewed By Marybeth Argueta RN BSN ATTESTATION I have reviewed the device interrogation [...] (ABNORMAL) POCT hemoglobin A1c (07/09/2024 9:05 AM ASSEMBLER LAY UPS) Hemoglobin A1C, POC 8.7 4.0 - 5.6 % Capillary blood 07/09/2024 9 :05 AM ASSEMBLER LAY UPS Lauren Lundberg NP POINT OF CARE TEST [...] Final Resu lt [facility] ([place]) [address] [facility] Department [place] [address] * (ABNORMAL) Albumin Creatinine Ratio, Urine (03/16/2024 9:58 AM CDT) Albumin Ur 75.1 mg/L Comment: Interpretive Data No reference range established. Current interpretive data was last revised 2018. Testing performed by: [facility], [address] [place] [address]., [id number] Creatinine Ur 72.3 mg/dL [facility] ([place]) Comment: Interpretive Data No reference range established. Current interpretive data was last revised 2018. Testing performed by: [facility], [address] [place] [address]., [id number] Albumin Creatinine Ratio, Ur 104(H) 1 - 29 mg/g [facility] ([place]) Comment:Testing performed by : [facility], [address] [place] [address]., [id number] Urine 03/16/2024 9:58 AM CDT 03/16/2024 2:06 PM CDT us Matthias Parker MD LAB URINE ORDERABLES Luisana beasley Result [facility] ([place] [address] [facility] [place] [address] * (ABNORMAL) Lipid panel (03/16/2024 9:58 AM [...] 2024. Non-HDL Cholesterol 67 mg/dL [facility] ([place]) Comment: Interpretive Data Ages < or = [...] on 2018. Chol/HDL ratio 3 [facility] ([place]) Blood 03/16/2024 9:58 AM CDT 03/16/2024 10:19 AM CDT Matthias Parker MD LAB BLOOD ORDERABLES Luisana l Result Performing Organization Address City/State/[facility] Co de Phone Number [facility] ([place]) [address] [facility] Department [place] [address] * PSA screen (04/18/2023 8:28 AM ASSEMBLER LAY UPS) PSA-Total 0.75 <=6.20 ng/mL [facility] Comment: Interpretive Data AGE SEX REFERENCE INTERVAL [...] last revised 21. Blood 04/18/2023 8:28 AM ASSEMBLER LAY UPS 04/18/2023 3:00 PM ASSEMBLER LAY UPS Lauren Lundberg NP LAB [place]LOOD [place] [address] [address] Department [place] [address] * DIABETES EYE EXAM (01/23/2023) SCRIBED DIABETIC DILATED EYE EXAM Normal us Historical Provider HEALTH MAINTENANCE Final Result * Colonoscopy (05/25/2010) Anatomical Region Laterality Modality Other Impressions 05/25/2010 Polyp us Historical Provider ENDOSCOPY PROCEDURES Luisana l Result from Last 3 Months or Most Recently Relevant to Health Maintenance Insurance [facility] MEDICARE [facility] MEDICARE Amber [place] [id number] [employer] MEDICARE Advance Directives For more information, please contact: [phone] Documents on File Type Date Recorded Patient Insurance Law Specialist Expl anation ADVANCE DIRECTIVE 05/29/2022 11:15 AM [...] Communication Shikha Neri Daughter Health Care Agent .[employer] Care Teams Kosher Dietary Service Supervisor Relationship Specialty Start Date End Date Matthias Parker MD [address] [place] [address] PCP - General Family Medicine 11/14/21
--- OUTSIDE RECORDS SUMMARY | 2024-10-10 13:36 | XMS_ITS | Encounter Summary ---
Author Organization [facility] Address [address] [place] [address] Phone Care Team Providers Care Instrument Lens Generator Name Role Phone David Sheikh MD Primary Care Provider [phone] Matthias Parker MD Primary Care Provider [phone] 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
--- OUTSIDE RECORDS SUMMARY | 2024-10-10 13:36 | XMS_ITS | Encounter Summary ---
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 Provider contacted via secure chat for ED [...] dry mouth, very lightheaded) Protocols used: Urinary Vjfgmpuo-Uszhj-XR * Telephone Encounter - Ariana Rebolledo RN - 10/09/2024 9:08 AM CDT Regarding: Trouble urinating and pain when attempting ----- Message from Eviti R sent at 10/09/2024 9:01 AM CDT [...] on filedocumented in this encounter Care Teams Electrical Plumbing Supervisor Relationship Specialty Start Date End Date Matthias Parker MD [address] [place] [address] PCP - General Family Medicine 11/14/21 documented as of this encounter
--- OUTSIDE RECORDS SUMMARY | 2024-10-10 13:37 | XMS_ITS | Clinical Summary ---
Author Organization [facility] Address [address] [place] [address] Care Team Providers Care Customer Solutions Supervisor Name Role Phone Matthias Parker MD Primary Care Provider [phone] Allergies Active Allergy Reactions Criticality Noted Date [...] 90 capsule 1 05/15/20 24 Active omega 6-yqr-ksv-fish oil 1,200 (144-216) mg capsule Take 1,200 [...] hyperglycemia, without long-term current use of insulin ([facility]) Use to inject once nightly [...] complication, without long-term current use of insulin ([facility]) TAKE ONE TABLET BY MOUTH [...] 07/21/2024 Assessment & Plan (07/21/2024 11:54 AM ORACLE MANAGER): Ambulating iwht walkder. No focal neurological s/s. WIll marcella response. Weakness 07/21/2024 Assessment & Plan (07/21/2024 11:54 AM ORACLE MANAGER): Joaquim anguianoiro response. Reivewed red flag s/s. Thrush 07/21/2024 Assessment & Plan (07/21/2024 11:55 AM ORACLE MANAGER): Course of nystatin swish and swallwo and iwll folwlor esponse. Acute right-sided low back pain with right-sided sciatica 07/09/2024 Assessment & Plan (07/09/2024 9:37 AM ORACLE MANAGER): No injury; pain has been waxing and [...] increasing blood sugars. Encouraged gentle stretching and froph-cl-ubduqv exercises. Reviewed red flag signs and symptoms [...] 04/01/2024 Assessment & Plan (05/19/2024 2:14 PM ORACLE MANAGER): S/p pacemaker placement. NO further syncopal episodes. [...] 3:30 PM CDT): Wearing quality assurance monitor chassis. Following closely with Cardiology. Scheduled for pacemaker placement 03/19/24. 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 Controlled type 2 diabetes m ellitus with diabetic polyneuropathy, without long-term current use of insulin 01/27/2024 Hypertension associated with diabetes 09/16/2023 Assessment & Plan (05/19/2024 2:13 PM ORACLE MANAGER): Stable on olmesartan. As above. Subacute cough 03/01/2023 Assessment & Plan (03/01/2023 9:35 AM CDT): No abnormal findings on exam. Patient denies feeling unwell. No fevers, shortness of breath dizziness, fatigue or changes in appetite. Lungs clear on exam, vital signs within normal limits. Recommended continued symptomatic treatment, can try a nonsedating frbc-lgg-zssksme antihistamine to help with postnasal drainage contributing to cough. Encouraged patient and his to call office in 1 week to give an update of symptoms. Will call sooner with any new or worsening symptoms. Will plan to order CXR. Rash as adverse effect of penicillin 06/14/2022 Assessment & Plan (06/14/2022 2:18 PM ORACLE MANAGER): Discontinue augmentin. No facial swelling, sob or voice changes. Rash localized to patients face, non itching. Instructed to take benadryl for drug reaction rash. Reviewed signs of serious allergic reaction requiring immediate ER evaluation. Dental infection 06/14/2022 Assessment & Plan (06/14/2022 2:17 PM ORACLE MANAGER): Discontinue augmentin. Prescribed doxycyline for dental infection. [...] as needed. 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 Denies any chest pain or shortness and breath. Blood pressure is well controlled. Assessment & Plan (05/19/2024 2:13 PM ORACLE MANAGER): Seconasdry prevneiton. WIll montior response. Assessment & [...] 04/02/2017 Assessment & Plan (05/19/2024 2:14 PM ORACLE MANAGER): Dual agnet therapy with finasteride and tamsulosin. MOntior for orthostasis. Assessment & Plan (05/26/2019 10:58 AM ORACLE MANAGER): Stable with acute on chronic complaint of urinary frequency likely D/T infection. Cnt. Flomax once daily as prior prescribed. Last PSA testing under [facility] at 1.3. Hypertensive heart disease w ith chronic diastolic congestive heart failure 10/24/2013 Overview (09/12/2016): HYPERTENSION NOS Assessment & Plan (05/19/2024 2:12 PM ORACLE MANAGER): Reivewed BP control and will montior ersponse. NO chest pains/pheadaches. No sig orthostasis. Reivewed hydration. Assessment & Plan (03/10/2024 3:30 PM CDT): Stable; blood pressure is well controlled. No acute changes in weight. Assessment & Plan (05/13/2020 8:30 AM ORACLE MANAGER): Recommend DASH diet, heart-healthy lifestyle, exercise. Discussed [...] UNCNTR Assessment & Plan (07/09/2024 9:36 AM ORACLE MANAGER): Lab Results Component Value Date HGBA1C 8.7 07/09/2024 HGBA1C 9.7 (H) 03/16/2024 HGBA1C 8.1 (H) 04/18/2023 Continue metformin. Instructed to increase Lantus from 10 units to 13 units nightly. Aware that prednisone will increase blood sugars and encouraged to monitor closely. Assessment & Plan (05/19/2024 2:13 PM ORACLE MANAGER): Reviwed glycemic control and iwll montior response. Encourage healthy food chocices and regular insulin usage. Assessment & Plan (03/01/2023 9:33 AM CDT): Stable, continue current regimen. Labs ordered today for patient to repeat a few days prior to scheduled office visit. Continues metformin 500 mg t.i.d. Assessment & Plan (05/26/2019 10:57 AM ORACLE MANAGER): Stable with last hemoglobin A1c at 7.2%. [...] 11/2019 Assessment & Plan (05/26/2019 10:57 AM ORACLE MANAGER): Acute UTI vs prostatitis likely cause. Initiating [...] Team Description 10/09/2024 Nurse Triage [facility] [address] [address] Matthias Parker MD 09/30/2024 2:15 PM CDT Ancillary Procedure [place] Project Administrative Assistant [address] [place] [phone] Syncope and collapse; Coronary artery disease involving chipewwa coronary artery of chipewwa heart without angina pectoris; Pacemaker 09/10/2024 Telephone [facility] [address] [address] Matthias Parker MD 08/04/2024 Telephone [facility] [address] [address] Matthias Parker MD 07/22/2024 Telephone [facility] [address] [address] Matthias Parker MD Additional Services Or Orders 07/21/2024 11:15 AM ORACLE MANAGER Office Visit [facility] [place] [address] [place] [address] Matthias Parker MD Gait instability (Primary Dx); Weakness; Thrush 07/21/2024 Telephone [facility] [address] [facility] [address] [place] [address] Ksenia Power RN 07/21/2024 Telephone [facility] [place] [address] [place] [address] Matthias Parker MD Medical Question/Miscellaneo us from Last 3 Months Immunizations Immunization Administration Dates Next Due COVID-19 mRNA ([employer]) 0.3 m L (30 mcg) vaccine (12 [...] on file Legal Sex Male 12:02 PM ORACLE MANAGER Gender Identity Male 10/15/2020 8:47 PM CDT Sexual Orientation Straight 10/15/2020 8: 47 PM CDT Obstetrics History Last Filed Vital Signs Vital Sign Reading Time Taken Comments Blood Pressure 126/72 07/21/2024 11:21 AM ORACLE MANAGER Pulse 69 07/21/2024 11:21 AM ORACLE MANAGER Temperature 36.7 C (98.1 F) 07/21/2024 11:21 AM ORACLE MANAGER Respiratory Rate 18 07/09/2024 8:20 AM ORACLE MANAGER Oxygen Saturation 98% 07/21/2024 11:21 AM ORACLE MANAGER Inhaled Oxygen Concentration - - Weight 75.8 kg (167 lb 3.2 oz) 07/21/2024 11:21 AM ORACLE MANAGER Height 172.7 cm (5' 8 ) 07/21/2024 11:21 AM ORACLE MANAGER Body Mass Index 25.42 07/21/2024 11:21 AM ORACLE MANAGER Plan of Treatment Health Maintenance Due Date [...] history exists Medical Devices Implanted Type Area Power Switchboard Operator Device Identifier Shelf Expiration Date Model / Serial / Lot [employer] Endocardial Pacing Lead Promri Solia T [id number] - [id number] - [id number] Implanted:Qty: 1 on 04/01/2024 by El Ogden MD at [facility] Lead [employer] 10/07/2024 [id number] / [id number] / [employer] Pacemaker Implantable Amvia Edge Dual Chamb Rate-Responsive [id number] - [id number] - [id number] Implanted:Qty: 1 on 04/01/2024 by El Ogden MD at [facility] Lead [employer] 07/10/2025 [id number] / [id number] / [employer] Tyrx Absorbable Antibacterial Envelope-Large 3.3x2.9in [id number] - [id number] Implanted:Qty: 1 on 04/01/2024 by El Ogden MD at [facility] [employer] 01/01/2025 CMRM [id number] / / [id number] [employer] Endocardial Pacing Lead Promri Solia Jt [id number] - [id number] - [id number] Implanted:Qty: 1 on 04/01/2024 by El Ogden MD at [facility] [employer] 11/07/2024 [id number] / [id number] / Procedures Procedure Name Priority Date/Time Associated Diagnosis Comments DEVICE CHECK - REMOTE Routine 09/29/2024 9:02 AM CDT Syncope and collapse Coronary artery disease involving chipewwa coronary artery of chipewwa heart without angina pectoris Pacemaker POCT HEMOGLOBIN A1C Routine 07/09/2024 9 :05 AM ORACLE MANAGER Type 2 diabetes mellitus with diabetic polyneuropathy, [...] (HCC) PSA SCREEN Routine 04/18/2023 8:28 AM ORACLE MANAGER Encounter for prostate cancer screening [facility] DIABETES EYE EXAM Routine 01/23/2023 COLONOSCOPY Routine 05/25/2010 from Last 3 Months or Most Recently Relevant to Health Maintenance Results * DEVICE CHECK - REMOTE (09/29/2024 9:02 AM CDT) Anatomical Region Laterality Modality Other Narrative 10/01/2024 4:08 PM CDT Images from the original result were not included. 09/30/2024 [employer] quarterly remote device check NOTE The following shows snippets from the complete quarterly report. The complete report in its entirety is attached to this Result Text in Corporate General Manager Presenting EGM Last in-office check April [...] (ABNORMAL) POCT hemoglobin A1c (07/09/2024 9:05 AM ORACLE MANAGER) Hemoglobin A1C, POC 8.7 4.0 - 5.6 % Capillary blood 07/09/2024 9 :05 AM ORACLE MANAGER Lauren Lundberg NP POINT OF CARE TEST [...] BLOOD ORDERABLES Final Resu lt [facility] ([place]) 1 [facility] Department [place] [address] * (ABNORMAL) Albumin Creatinine Ratio, Urine (03/16/2024 9:58 AM CDT) Albumin Ur 75.1 mg/L Comment: Interpretive Data No reference range established. Current interpretive data was last revised 2018. Testing performed by: [facility], [address] [place] [address]., [id number] Creatinine Ur 72.3 mg/dL [facility] ([place] Comment: Interpretive Data No reference range established. Current interpretive data was last revised 2018. Testing performed by: [facility], [address] [place] [address]., [id number] Albumin Creatinine Ratio, Ur 104(H) 1 - 29 mg/g [facility] ([place]) Comment:Testing performed by : [facility], [address] [place] [address]., [id number] Urine 03/16/2024 9:58 AM CDT 03/16/2024 2:06 PM CDT us Matthias Parker MD LAB URINE ORDERABLES Luisana beasley Result [facility] ([place]) 1 [facility] [place] [address] * (ABNORMAL) Lipid panel (03/16/2024 9:58 AM [...] 2024. Non-HDL Cholesterol 67 mg/dL [facility] ([place]) Comment: Interpretive Data Ages < or = [...] on 2018. Chol/HDL ratio 3 [facility] ([place]) Blood 03/16/2024 9:58 AM CDT 03/16/2024 10:19 AM CDT Matthias Parker MD LAB BLOOD ORDERABLES Luisana l Result Performing Organization Address City/State/[facility] Co de Phone Number [facility] ([place]) 1 [facility] [place] [address] * PSA screen (04/18/2023 8:28 AM ORACLE MANAGER) PSA-Total 0.75 <=6.20 ng/mL [facility] Comment: Interpretive Data AGE SEX REFERENCE INTERVAL [...] last revised 21. Blood 04/18/2023 8:28 AM ORACLE MANAGER 04/18/2023 3:00 PM ORACLE MANAGER Lauren Lundberg NP LAB [place] [address] [facility] Department [place] [address] * DIABETES EYE EXAM (01/23/2023) SCRIBED DIABETIC DILATED EYE EXAM Normal us Historical Provider HEALTH MAINTENANCE Final Result * Colonoscopy (05/25/2010) Anatomical Region Laterality Modality Other Impressions 05/25/2010 Polyp us Historical Provider ENDOSCOPY PROCEDURES Luisana l Result from Last 3 Months or Most Recently Relevant to Health Maintenance Insurance [facility] MEDICARE [facility] MEDICARE Amber [place] [id number] [employer] MEDICARE Advance Directives For more information, please contact: [phone] Documents on File Type Date Recorded Patient Stamp Clerk Expl anation ADVANCE DIRECTIVE 05/29/2022 11:15 AM [...] Communication Shikha Neri Daughter Health Care Agent [email or web address] Care Teams Customer Solutions Supervisor Relationship Specialty Start Date End Date Matthias Parker MD [address] [place] [address] PCP - General Family Medicine 11/14/21
--- OUTSIDE RECORDS SUMMARY | 2024-10-10 13:37 | XMS_ITS | Referral Summary ---
Author Organization [facility] Address [address] [place] [address] Care Team Providers Care Director Of Alumni Relations Name Role Phone Matthias Parker MD Primary Care Provider [phone] Encounters Date Type Department Care Team Description 10/09/2024 Nurse Triage [facility] [address] [phone] Matthias Parker MD 09/30/2024 2:15 PM CDT Ancillary Procedure [employer] [employer] Mechanical Engineer [id number] [address] Syncope and collapse; Coronary artery disease involving [place] coronary artery of [place] heart without angina pectoris; Pacemaker 09/10/2024 Telephone [facility] [address] [phone] Matthias Parker MD 08/04/2024 Telephone [facility] [address] [phone] Matthias Parker MD 07/22/2024 Telephone [facility] [address] [phone] Matthias Parker MD Additional Services Or Orders 07/21/2024 Telephone [facility] [address] [place] [address] Ksenia Power RN 07/21/2024 Telephone [facility] [address] [phone] Matthias Parker MD Medical Question/Miscellaneo us 07/21/2024 11:15 AM GROUND WIRER Office Visit [facility] at [address] [phone] Matthias Parker MD Gait instability [...] daily 90 capsule 1 05/15/20 Active omega 3-dig-swz-fish oil 1,200 (144-216) mg capsule Take 1,200 [...] hyperglycemia, without long-term current use of insulin ([facility]) Use to inject once nightly 100 [...] complication, without long-term current use of insulin ([facility]) TAKE ONE TABLET BY MOUTH THREE TIMES A DAY BEFORE MEALS 270 tablet 1 09/08/19 25 Active insulin glargine (LANTUS) 100 unit/mL (3 mL) pen for injectionIndicatio ns:Type 2 diabetes mellitus with hyperglycemia, without long-term current use of insulin ([facility]) Inject 14 Units under the skin daily 9 mL 1 09/11/19 25 Active Active Problems Problem Noted Date Diagnosed Date Gait instability 07/21/2024 Assessment & Plan (07/21/2024 11:54 AM GROUND WIRER): Ambulating iwht walkder. No focal neurological s/s. WIll marcella response. Weakness 07/21/2024 Assessment & Plan (07/21/2024 11:54 AM GROUND WIRER): Joaquim andrea response. Reivewed red flag s/s. Thrush 07/21/2024 Assessment & Plan (07/21/2024 11:55 AM GROUND WIRER): Course of nystatin swish and swallwo and iwll folwlor esponse. Acute right-sided low back pain with right-sided sciatica 07/09/2024 Assessment & Plan (07/09/2024 9:37 AM GROUND WIRER): No injury; pain has been waxing and [...] increasing blood sugars. Encouraged gentle stretching and eiiau-vt-onwzap exercises. Reviewed red flag signs and symptoms [...] 04/01/2024 Assessment & Plan (05/19/2024 2:14 PM GROUND WIRER): S/p pacemaker placement. NO further syncopal episodes. [...] (03/10/2024 3:30 PM CDT): Wearing cardiac cath technologist. Following closely with Cardiology. Scheduled for pacemaker placement 03/19/24. 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 Controlled type 2 diabetes m jose alberto with diabetic polyneuropathy, without long-term current use of insulin 01/27/2024 Hypertension associated with diabetes 09/16/2023 Assessment & Plan (05/19/2024 2:13 PM GROUND WIRER): Stable on olmesartan. As above. Subacute cough 03/01/2023 Assessment & Plan (03/01/2023 9:35 AM CDT): No abnormal findings on exam. Patient denies feeling unwell. No fevers, shortness of breath dizziness, fatigue or changes in appetite. Lungs clear on exam, vital signs within normal limits. Recommended continued symptomatic treatment, can try a nonsedating ynrk-bqk-wzssvap antihistamine to help with postnasal drainage contributing to cough. Encouraged patient and his to call office in 1 week to give an update of symptoms. Will call sooner with any new or worsening symptoms. Will plan to order CXR. Rash as adverse effect of penicillin 06/14/2022 Assessment & Plan (06/14/2022 2:18 PM GROUND WIRER): Discontinue augmentin. No facial swelling, sob or voice changes. Rash localized to patients face, non itching. Instructed to take benadryl for drug reaction rash. Reviewed signs of serious allergic reaction requiring immediate ER evaluation. Dental infection 06/14/2022 Assessment & Plan (06/14/2022 2:17 PM GROUND WIRER): Discontinue augmentin. Prescribed doxycyline for dental infection. [...] as needed. Coronary artery disease invo lving [place] coronary artery of [place] heart without angina pectoris 04/02/2017 Assessment & Plan (07/09/2024 9:37 AM GROUND WIRER): Continue secondary prevention with Plavix, aspirin and high-intensity statin. Denies any chest pain or shortness and breath. Blood pressure is well controlled. Assessment & Plan (05/19/2024 2:13 PM GROUND WIRER): Seconasdry prevneiton. WIll montior response. Assessment & [...] 04/02/2017 Assessment & Plan (05/19/2024 2:14 PM GROUND WIRER): Dual agnet therapy with finasteride and tamsulosin. MOntior for orthostasis. Assessment & Plan (05/26/2019 10:58 AM GROUND WIRER): Stable with acute on chronic complaint of urinary frequency likely D/T infection. Cnt. Flomax once daily as prior prescribed. Last PSA testing under [facility] at 1.3. Hypertensive heart disease w ith chronic diastolic congestive heart failure 10/24/2013 Overview (09/12/2016): HYPERTENSION NOS Assessment & Plan (05/19/2024 2:12 PM GROUND WIRER): Reivewed BP control and will montior ersponse. NO chest pains/pheadaches. No sig orthostasis. Reivewed hydration. Assessment & Plan (03/10/2024 3:30 PM CDT): Stable; blood pressure is well controlled. No acute changes in weight. Assessment & Plan (05/13/2020 8:30 AM GROUND WIRER): Recommend DASH diet, heart-healthy lifestyle, exercise. Discussed [...] UNCNTR Assessment & Plan (07/09/2024 9:36 AM GROUND WIRER): Lab Results Component Value Date HGBA1C 8.7 07/09/2024 HGBA1C 9.7 (H) 03/16/2024 HGBA1C 8.1 (H) 04/18/2023 Continue metformin. Instructed to increase Lantus from 10 units to 13 units nightly. Aware that prednisone will increase blood sugars and encouraged to monitor closely. Assessment & Plan (05/19/2024 2:13 PM GROUND WIRER): Reviwed glycemic control and iwll montior response. Encourage healthy food chocices and regular insulin usage. Assessment & Plan (03/01/2023 9:33 AM CDT): Stable, continue current regimen. Labs ordered today for patient to repeat a few days prior to scheduled office visit. Continues metformin 500 mg t.i.d. Assessment & Plan (05/26/2019 10:57 AM GROUND WIRER): Stable with last hemoglobin A1c at 7.2%. [...] 11/2019 Assessment & Plan (05/26/2019 10:57 AM GROUND WIRER): Acute UTI vs prostatitis likely cause. Initiating [...] Immunization Administration Dates Next Due COVID-19 mRNA (Content Raven) 0.3 m L (30 mcg) vaccine (12 years and up) 04/10/2024 Influenza, Quadrivalent, Hig h Dose, Preservative Free, Intrr 03/30/2021 Influenza, Trivalent, High D ose, Split, Preservative Free, Intramuscular 03/02/2019,03/13/2018,03/13/2017,02/27,03/09/2015,03/29/2014 Influenza, Trivalent, IM (MDV) 03/18/2013,2010 Influenza, Unspecified 03/10/2024,2023(Deferred: Patient Refused),03/14/2023,03/01/2023(Deferre d: Patient Refused),03/10/2022,02/09/2021(Deferre d: Patient Refused),03/16/2020,03/02/2019 [place] SARS-CoV-2 Monovalent Vaccination (12+ Yrs) PURPLE 03/26/2023,03/13/2021,07/07/2020,06/15 [...] on file Legal Sex Male 12:02 PM GROUND WIRER Gender Identity Male 10/15/2020 8:47 PM CDT Sexual Orientation Straight 10/15/2020 8: 47 PM CDT Last Filed Vital Signs Vital Sign Reading Time Taken Comments Blood Pressure 126/72 07/21/2024 11:21 AM GROUND WIRER Pulse 69 07/21/2024 11:21 AM GROUND WIRER Temperature 36.7 C (98.1 F) 07/21/2024 11:21 AM GROUND WIRER Respiratory Rate 18 07/09/2024 8:20 AM GROUND WIRER Oxygen Saturation 98% 07/21/2024 11:21 AM GROUND WIRER Inhaled Oxygen Concentration - - Weight 75.8 kg (167 lb 3.2 oz) 07/21/2024 11:21 AM GROUND WIRER Height 172.7 cm (5' 8 ) 07/21/2024 11:21 AM GROUND WIRER Body Mass Index 25.42 07/21/2024 11:21 AM GROUND WIRER Plan of Treatment Not on file Medical Devices Implanted Type Area Rouge Presser Device Identifier Shelf Expiration Date Model / Serial / Lot [employer] Endocardial Pacing Lead Promri Zabrina T [id number] - [id number] - [id number] Implanted:Qty: 1 on 04/01/2024 by El Ogden MD at [facility] Lead [employer] 10/07/2024 [id number] / [id number] / [employer] Pacemaker Implantable Amvia Edge Dual Chamb Rate-Responsive [id number] - [id number] - [id number] Implanted:Qty: 1 on 04/01/2024 by El Ogden MD at [facility] Lead [employer] 07/10/2025 [id number] / [id number] / Medtronic [employer] Tyrx Absorbable Antibacterial Envelope-Large 3.3x2.9in [id number] - [id number] Implanted:Qty: 1 on 04/01/2024 by El Ogden MD at [facility] [employer] 01/01/2025 [id number] / / [id number] [employer] Endocardial Pacing Lead Promri Solia Jt [id number] - [id number] - [id number] Implanted:Qty: 1 on 04/01/2024 by El Ogden MD at [facility] [employer] 11/07/2024 [id number] / [id number] / Procedures Procedure Name Priority Date/Time Associated Diagnosis Comments DEVICE CHECK - REMOTE Routine 09/29/2024 9:02 AM CDT Syncope and collapse Coronary artery disease involving [place] coronary artery of [place] heart without angina pectoris Pacemaker POCT HEMOGLOBIN A1C Routine 07/09/2024 9 :05 AM GROUND WIRER Type 2 diabetes mellitus with diabetic polyneuropathy, [...] (HCC) PSA SCREEN Routine 04/18/2023 8:28 AM GROUND WIRER Encounter for prostate cancer screening HM DIABETES EYE EXAM Routine 01/23/2023 COLONOSCOPY Routine 05/25/2010 from Last 3 Months or Most Recently Relevant to Health Maintenance Results * DEVICE CHECK - REMOTE (09/29/2024 9:02 AM CDT) Anatomical Region Laterality Modality Other Narrative 10/01/2024 4:08 PM CDT Images from the original result were not included. 09/30/2024 [employer] quarterly remote device check NOTE The following shows snippets from the complete quarterly report. The complete report in its entirety is attached to this Result Text in Electroplater Presenting EGM Last in-office check April 01 2024 Next in-office check Oct 12 2024 (marked for reschedule) Dual Chamber PPM implanted March 2024 Battery longevity = OK/95% AT/AF burden 0.0% Ap 60% RVp 2% No episodes this monitoring period Reviewed By Marybeth Argueta INSTITUTIONAL ASSET MANAGER ATTESTATION I have reviewed the device interrogation [...] (ABNORMAL) POCT hemoglobin A1c (07/09/2024 9:05 AM GROUND WIRER) Hemoglobin A1C, POC 8.7 4.0 - 5.6 % Capillary blood 07/09/2024 9 :05 AM GROUND WIRER Lauren Lundberg NP POINT OF CARE TEST [...] Final Resu lt [facility] ([place]) [facility] Department [place] [address] * (ABNORMAL) Albumin Creatinine Ratio, Urine (03/16/2024 9:58 AM CDT) Albumin Ur 75.1 mg/L Comment: Interpretive Data No reference range established. Current interpretive data was last revised 2018. Testing performed by: [address] [address] Creatinine Ur 72.3 mg/dL [facility] ([place]) Comment: Interpretive Data No reference range established. Current interpretive data was last revised 2018. Testing performed by: [facility], [address] [place] [address]., [id number] Albumin Creatinine Ratio, Ur 104(H) 1 - 29 mg/g [facility] ([place]) Comment:Testing performed by : [address] [address] Urine 03/16/2024 9:58 AM CDT 03/16/2024 2:06 PM CDT us Matthias Parker MD LAB URINE ORDERABLES Luisana gale Result [facility] ([place]) [facility] Department [place] [address] * (ABNORMAL) Lipid panel (03/16/2024 9:58 AM [...] revised on 2024. Non-HDL Cholesterol 67 mg/dL [facility] ([place]) Comment: Interpretive Data Ages < [...] BLOOD ORDERABLES Luisana l Result [facility] ([place]) [facility] Department [place] [address] * PSA screen (04/18/2023 8:28 AM GROUND WIRER) PSA-Total 0.75 <=6.20 ng/mL [facility] Comment: [...] last revised 21. Blood 04/18/2023 8:28 AM GROUND WIRER 04/18/2023 3:00 PM GROUND WIRER Lauren Lundberg GPS NAVIGATION INSTALLER LAB BLOOD ORDERABLES Final Result Performing Organization Address [facility] Co de Phone Number [facility] [address] [address] Department [place] [address] * DIABETES EYE EXAM (01/23/2023) SCRIBED DIABETIC DILATED EYE EXAM Normal Historical Provider HEALTH MAINTENANCE Final Result * Colonoscopy (05/25/2010) Anatomical Region Laterality Modality Other Impressions 05/25/2010 Polyp Historical Provider ENDOSCOPY PROCEDURES Luisana l Result from Last 3 Months or Most Recently Relevant to Health Maintenance Insurance [employer] MEDICARE [facility] MEDICARE [facility] MEDICARE Advance Directives For more information, please contact: [phone] Documents on File Type Date Recorded Patient Applications Specialist Expl anation ADVANCE DIRECTIVE 05/29/2022 11:15 [...] Communication Shikha Neri Daughter Health Care Agent [email or web address] Teams Director Of Alumni Relations Relationship Specialty Start Date End Date Matthias Parker MD [address] [place] [address] PCP - General Family Medicine 11/14/21
== END 2024-10-09 15:43 | disposition home or self-care (01) ==
PROVIDERS: Emergency Provider Emergency Medicine; PCP Family Medicine
DX: N20.0 Calculus of kidney (principal); R31.9 Hematuria, unspecified; Z79.84 Long term (current) use of oral hypoglycemic drugs; Z79.899 Other long term (current) drug therapy; Z79.02 Long term (current) use of antithrombotics/antiplatelets; Z79.82 Long term (current) use of aspirin; K42.9 Umbilical hernia without obstruction or gangrene; K40.90 Unilateral inguinal hernia, without obstruction or gangrene, not specified as recurrent
CPT/HCPCS: 36415; 74176; 80053; 81001; 85025; 99284